=== PATIENT | female | born 1950 | race Caucasian/White ===

== ENCOUNTER → 2019-03-30 14:23 | Outpatient (BNVA) | payer OTHER, SELFPAY | PROVIDERS: PCP Nurse Practitioner Family; Referring Provider Nurse Practitioner Family; Visit Provider Surgery | DX: N60.89 Other benign mammary dysplasias of unspecified breast (principal) | CPT/HCPCS: 99202; 99213 ==

== ENCOUNTER 2019-04-12 09:10 | Outpatient (CLI) | payer OTHER, SELFPAY ==
[2019-04-12 09:51] LABS: Bilirubin Negative (Negative); Blood Small (Negative); Clarity Clear; Glucose Negative (Negative); Ketones Negative (Negative); Leukocyte Esterase Negative (Negative); Nitrite Negative (Negative); Urobilinogen 0.2 EU/dL (Up TO 0.2); pH 6.5 (5-8)
[2019-04-12 10:01] LABS: Epithelial Cells Few HPF (Negative); WBC 0-2 HPF (0-5)
[2019-04-12 10:02] LABS: Bacteria Rare HPF (Negative); C & S Indicated? No; Casts Negative LPF (Negative); Crystals Negative HPF (Negative); Mucus Trace (Negative)
[2019-04-12 10:36] LABS: ALT 22 U/L (12-78); AST 16 U/L (15-37); Albumin 3.6 g/dL (3.4-5.0); Alkaline Phosphatase 122 U/L (46-116); Anion Gap 8.3 mmol/L (3-11); BUN 22 mg/dL (7-18); Bilirubin, Total 0.2 mg/dL (0.2-1.0); CO2 30.7 mmol/L (21.0-32.0); CREATININE 0.71 mg/dL (0.55-1.02); Calcium 8.7 mg/dL (8.5-10.1); Chloride 103 mmol/L (98-107); Cholesterol 269 mg/dL (50-200); Glucose 88 mg/dL (70-100); HDL Cholesterol 111 mg/dL (40-60); LDL CHOLESTEROL 137 mg/dL (<100); Potassium 3.9 mmol/L (3.5-5.1); Sodium 142 mmol/L (136-145); Total Protein 7.3 g/dL (6.4-8.2); Triglyceride 85 mg/dL (30-150)
[2019-04-12 10:44] LABS: Hemoglobin A1C 5.7 % (4.5-6.2)
[2019-04-13 11:11] LABS: Hepatitis C Ab w Rflx HCV PCR Negative (NEGAT)
== END 2019-04-12 09:30 ==
PROVIDERS: PCP Nurse Practitioner Family; Visit Provider Nurse Practitioner Family
DX: R31.29 Other microscopic hematuria (principal); E78.5 Hyperlipidemia, unspecified; R73.01 Impaired fasting glucose; R74.8 Abnormal levels of other serum enzymes; Z11.59 Encounter for screening for other viral diseases
CPT/HCPCS: 36415; 80053; 80061; 83721; 86803; 81003; 81015; 83036

== ENCOUNTER 2019-05-16 21:57 | Outpatient (REF) | payer OTHER, SELFPAY | END 2019-05-16 22:17 | LOC: LBN 21:57 | PROVIDERS: PCP Nurse Practitioner Family; Visit Provider Nurse Practitioner | DX: R82.90 Unspecified abnormal findings in urine (principal) | CPT/HCPCS: 87077; 87086 ==

== ENCOUNTER 2019-08-16 11:25 | Outpatient (REF) | payer OTHER, SELFPAY | END 2019-08-16 11:45 | LOC: LBN 11:25 | PROVIDERS: PCP Nurse Practitioner Family; Visit Provider Nurse Practitioner Family | DX: R31.9 Hematuria, unspecified (principal) | CPT/HCPCS: 87086 ==

== ENCOUNTER 2019-11-07 15:59 | Outpatient (REF) | payer OTHER, SELFPAY ==
[2019-11-07 17:30] LABS: Bilirubin Negative (Negative); Blood Small (Negative); Clarity Clear (Clear); Glucose Negative (Negative); Ketones Negative (Negative); Leukocyte Esterase Negative (Negative); Nitrite Negative (Negative); Urobilinogen 0.2 EU/dL (Up TO 0.2)
[2019-11-07 18:14] LABS: Bacteria Negative HPF (Negative); C & S Indicated? No; Crystals Negative HPF (Negative); Epithelial Cells Negative HPF (Negative); Mucus Negative (Negative); RBC 0-2 HPF (0-2); WBC 0-2 HPF (0-5)
== END 2019-11-07 16:19 ==
LOC: LBN 15:59
PROVIDERS: PCP Nurse Practitioner Family; Visit Provider Family Medicine
DX: R35.0 Frequency of micturition (principal)
CPT/HCPCS: 81003; 81015

== ENCOUNTER 2020-02-21 12:12 | Emergency (ER) | payer OTHER, SELFPAY ==
--- NOTE | 2020-02-21 12:15 | DI.CT_ITS ---
EXAM: CT HEAD WO CLINICAL HISTORY: headaches and dizziness. TECHNIQUE: Imaging Protocol: Axial computed tomography images with coronal and sagittal reformatted images were created and reviewed COMPARISON: No exams were available for comparison FINDINGS: Ventricles and Extra axial spaces: Normal in size and morphology for the patient's age. Hemorrhage: None. Cerebral parenchyma: Scattered parenchymal calcifications are seen. No mass effect is present. Ther e are areas of decreased attenuation in the white matter most consistent with small vessel ischemic d isease. Midline shift: None. Brainstem/Cerebellum: Normal. Calvarium: Normal. Visualized Paranasal sinuses/Mastoids: Clear. Soft Tissues: Unremarkable. IMPRESSION: No acute intracranial process. The findings were discussed with the emergency department on the date of the examination. RADIATION DOSE DELIVERED: DATA REPOSITORY: All CT scans at this facility are submitted to the National Radiology Data Registry (NRDR) Dose Index Registry (DIR) with the [employer] (ACR). RADIATION OPTIMIZATION: All CT scans at this facility use at least one of these dose optimization te chniques: automated exposure control; mA and/or kV adjustment per patient size (includes targeted exa ms where dose is matched to clinical indication); or iterative reconstruction.
[2020-02-21 12:21] VITALS: BP 150/61; PULSE 77; RESP 16; TEMP 36.9; O2SAT 97
--- NOTE | 2020-02-21 12:25 | ED.GENADUL_ITS ---
Discharge Plan Disposition Patient Disposition: HOME Condition: Stable Discharge Details Chief Complaint: Dizzy/Sync Clinical Impression: Dizziness Primary Care Provider: Liz Hall ED Provider: Petr Washington Home Meds and New Rx's Prescriptions: New meclizine 25 mg tablet 25 mg PO TID PRN (Reason: dizziness) Qty: 30 RF: 0 Continued minoxidil 5 % solution 1 ml TP BID Qty: 120 RF: 3 atorvastatin 10 mg tablet 10 mg PO DAILY Qty: 90 RF: 3 pantoprazole 20 mg tablet,delayed release (DR/EC) 20 mg PO DAILY Qty: 90 RF: 0 (DME) blood-glucose meter Misc See Rx Instructions .ROUTE .MEDSUPPLY Qty: 1 RF: 0 (DME) blood sugar diagnostic [Blood Glucose Test] Strip See Rx Instructions .ROUTE .MEDSUPPLY Qty: 100 RF: 3 (DME) lancets Misc See Rx Instructions .ROUTE .MEDSUPPLY Qty: 100 RF: 3 smooth move tea 1 PO TID RF: 0 docusate sodium [Stool Softener] 100 MG capsule 100 mg PO PRN RF: 0 mineral oil [Mineral Oil Light] 25 ML oil 25 ml PO DAILY RF: 0 nortriptyline 50 mg capsule 50 mg PO QHS RF: 0 clonazepam 0.5 mg tablet 0.5 mg PO BID RF: 0 lamotrigine 100 mg tablet 100 mg PO BID RF: 0 aspirin [Adult Aspirin Regimen] 81 mg tablet,delayed release (DR/EC) 81 mg PO DAILY RF: 0 divalproex 250 mg tablet,delayed release (DR/EC) 250 mg PO DAILY RF: 0 naproxen sodium [Aleve] 220 MG capsule 220 mg PO BID PRNRF: 0 Discharge Instructions Instructions: Dizziness (ED) Additional Instructions: your cat scan and blood work did not show any concerning abnormality follow up with your primary care provider within 1 week if you feel more ill, have chest pain, difficulty breathing or weakness on one side of the body return to the emergency department Medical Decision Making 69 yo female with hx of depression, anxiety, epilepsy, hld, who comes in with complaints of dizziness for 3 days worse with head movements and mild headaches. Denies any falls, fevers, chest pain, neck pain, vomit, abdominal pain. States it feels to her as though the room is spinning when she turns her head left or right. She has no focal motor or sensation deficits. She has no facial droop, eomi and has horizontal nystagmus when looking to the left and reassuring HINTS exam so suspect peripheral vertigo. Will tx with meclizine and given her age evaluate for anemia, electrolyte abnormalities and image her head to evaluate for sdh. She has no neck pain and no bruits of the carotids so doubt dissection. No findings to suggest central vertigo. labs unremarkable and imaging unremarkable. She feels better and still has a reassuring exam. Will d/c and have her f/u with her pcp, suspect peripheral vertigo Differential Diagnosis Differential Diagnosis: vertigo, anemia, electrolyte abnormality, sdh Medical Records Medical records reviewed: Yes I reviewed the patient's medical records. Imaging Data Radiologic Study: Attestation: I personally reviewed and interpreted this imaging study as follows: Imaging: CT Scan Radiologist's impression: no acute findings per Dr. oro Lab Data Lab results reviewed: Yes I reviewed the patient's lab results. ECG Data Attestation: I personally reviewed and interpreted this ECG (s) as follows: Prior ECG tracings: not available for review Interpretation: sinus rhythm, rate of 72, pr 174, qtc 433 HPI General Mode of arrival: wheelchair . Date/Time Provider Initiated Documentation: 02/21/20 12:12 . Limitations to Documentation: no limitations . Information obtained by: patient . History of Present Illness 69 year old F presents to the emergency department with the chief complaint of dizziness, described as moderate, Patient started experiencing this day(s) (3) and it has been constant. No relieving factors improve symptom(s), Movement worsens symptoms . Patient did receive the following treatments prior to arrival, none Related Data Home Medications Medication Instructions Recorded Confirmed naproxen sodium [Aleve] 220 mg PO BID PRN 07/28/13 01/30/20 Smooth Move Tea 1 PO TID 07/29/17 01/30/20 docusate sodium [Stool Softener] 100 mg PO PRN cap 01/25/18 01/30/20 mineral oil [Mineral Oil Light] 25 ml PO DAILY 01/25/18 01/30/20 blood sugar diagnostic #100 each 06/20/19 01/30/20 blood-glucose meter #1 each 06/20/19 01/30/20 lancets #100 each 06/20/19 01/30/20 aspirin 81 mg tablet,delayed 81 mg PO DAILY 08/08/19 01/30/20 release clonazepam 0.5 mg tablet 0.5 mg PO BID 08/08/19 01/30/20 lamotrigine 100 mg tablet 100 mg PO BID 08/08/19 01/30/20 nortriptyline 50 mg capsule 50 mg PO QHS 08/08/19 01/30/20 divalproex 250 mg tablet,delayed 250 mg PO DAILY tab 10/23/19 01/30/20 release minoxidil 5 % topical solution 1 ml TP BID #120 ml 01/30/20 01/30/20 atorvastatin 10 mg tablet 10 mg PO DAILY #90 tab-cap 02/04/20 02/04/20 pantoprazole 20 mg tablet,delayed 20 mg PO DAILY #90 tab-cap 02/04/20 02/04/20 release meclizine 25 mg PO TID PRN #30 tab 02/21/20 Previous Rx's Medication Instructions Recorded blood sugar diagnostic #100 each 06/20/19 blood-glucose meter #1 each 06/20/19 lancets #100 each 06/20/19 minoxidil 5 % topical solution 1 ml TP BID #120 ml 01/30/20 atorvastatin 10 mg tablet 10 mg PO DAILY #90 tab-cap 02/04/20 pantoprazole 20 mg tablet,delayed 20 mg PO DAILY #90 tab-cap 02/04/20 release meclizine 25 mg PO TID PRN #30 tab 02/21/20 Allergies Allergy/AdvReac Type Severity Reaction Status Date / Time egg AdvReac Mild SKIN RASH Unverified 02/21/20 12:30 tomato AdvReac Mild SKIN RASH Unverified 02/21/20 12:30 POTATO AdvReac Mild SKIN RASH Uncoded 02/21/20 12:30 Review of Systems All systems reviewed & are unremarkable except as noted in HPI and below Constitutional Constitutional: Denies chills, Denies fever(s) and Denies weakness Cardiovascular Cardiovascular: Denies chest pain and Denies dyspnea Respiratory Respiratory: Denies cough and Denies dyspnea Gastrointestinal Gastrointestinal: Denies abdominal pain and Denies vomiting Genitourinary Genitourinary: Denies dysuria Integumentary/Breasts Skin/Breast: Denies rash Neurologic Neurologic: Denies weakness [facility] Social History Smoking/Tobacco Use Status: Never Alcohol Intake: never Drug use: Never Substance use type: does not use Caregiver/Support person: No Household members: spouse Communication Needs: Language Barriers What type of physical activity do you participate in: none Do you feel safe at home: Yes Do you feel safe in your relationship?: Yes Exam Const General: no acute distress Orientation: alert HENMT Head: normal to inspection Ears: external ears normal General nose exam: external nose normal Mouth: moist mucous membranes Eyes General: appearance normal, both eyes and all related structures Neck Neck: normal visual inspection Resp Effort & Inspection: normal respiratory effort and able to speak in complete sentences Cardio Rate: regular rate Skin General skin exam: no rashes or lesions noted Neuro General: patient alert and patient oriented x3 Extrem General: normal to inspection Psych Mental Status: mental status grossly normal
[2020-02-21] MEDS: Normal Saline 1,000 ML 1000 ML IV (12:39)
[2020-02-21 12:40] VITALS: RESP 16
[2020-02-21] MEDS: Meclizine 25 MG TAB PO (12:47)
[2020-02-21 13:03] LABS: Abs Immature Grans 0.02 k/cumm (0.0-0.09); Absolute Basophil Count 0.03 k/cumm (0.0-0.2); Absolute Eosinophil Count 0.01 k/cumm (0.0-0.7); Absolute Lymphocyte Count 1.17 k/cumm (1.2-3.4); Absolute Monocyte Count 0.43 k/cumm (0.11-0.7); Absolute Neutrophil Count 4.78 k/cumm (1.2-6.7); Basophils % 0.5; Eosinophils % 0.2; HCT 37.9 % (36.0-46.0); Immature Grans % 0.3 %; Lymphocytes % 18.2; Mean Corp. HGB Concentration 31.7 g/dL (32.0-36.0); Mean Corpuscular Hemoglobin 28.5 pg (27.0-33.0); Mean Platelet Volume 9.3 fL (8.0-11.0); Monocytes % 6.7; Neutrophils % 74.1; Platelet Count 298 x1000/uL (130-400); RBC 4.21 m/cumm (4.00-5.20); RBC Distribution Width 12.8 % (11.7-14.6); White Blood Cell Count 6.44 k/cumm (4.4-10.8)
[2020-02-21 13:08] LABS: PTT Activated 23.9 sec (21.0-31.4); Prothrombin Time 9.9 sec (9.3-11.0)
[2020-02-21 13:11] LABS: ALT 26 U/L (14-59); AST 17 U/L (15-37); Albumin 3.7 g/dL (3.4-5.0); Alkaline Phosphatase 101 U/L (46-116); Anion Gap 5.1 mmol/L (3-11); BUN 23 mg/dL (7-18); Bilirubin, Total 0.4 mg/dL (0.2-1.0); CO2 33.9 mmol/L (21.0-32.0); CREATININE 0.99 mg/dL (0.55-1.02); Calcium 8.9 mg/dL (8.5-10.1); Chloride 103 mmol/L (98-107); Estimated GFR 55.29 (mL/min/1.73m2); Glucose 122 mg/dL (74-106); Magnesium 2.1 mg/dL (1.8-2.4); Potassium 3.7 mmol/L (3.5-5.1); Sodium 142 mmol/L (136-145); Total Protein 7.6 g/dL (6.4-8.2)
[2020-02-21 13:16] LABS: Troponin I < 0.05 ng/Ml (<0.06)
[2020-02-21 13:27] LABS: VALPROIC ACID 44.4 ug/mL (50-100)
[2020-02-21 17:29] VITALS: BP 148/71; PULSE 68; RESP 16; TEMP 36.8; O2SAT 96
== END 2020-02-21 17:20 | disposition home or self-care (01) ==
PROVIDERS: Emergency Provider Emergency Medicine; PCP Nurse Practitioner Family
DX: R42 Dizziness and giddiness (principal)
CPT/HCPCS: 36415; 80053; 93005; 96360; 99285; 70450; 80164; 83735; 84484; 85025; 85610; 85730; 93010; 99284

== ENCOUNTER 2020-07-29 16:21 | Emergency (ER) | payer OTHER, SELFPAY ==
[2020-07-29 16:33] VITALS: BP 141/98; TEMP 36.4; O2SAT 99
[2020-07-29 16:39] VITALS: BP 141/98; PULSE 105
[2020-07-29 16:40] VITALS: BP 142/63; PULSE 99
--- NOTE | 2020-07-29 16:46 | W.ED.GENAD ---
Discharge Plan Disposition Patient Disposition: HOME Condition: Improving Discharge Details Chief Complaint: Nausea/Vomit/Diar Clinical Impression: Constipation Primary Care Provider: Liz Hall ED Provider: Doris Sen Home Meds and New Rx's Prescriptions: Continued minoxidil 5 % solution 1 ml TP BID Qty: 120 RF: 3 pantoprazole 20 mg tablet,delayed release (DR/EC) 20 mg PO DAILY Qty: 90 RF: 0 (DME) blood-glucose meter Misc See Rx Instructions .ROUTE .MEDSUPPLY Qty: 1 RF: 0 (DME) Blood Glucose Test Strip See Rx Instructions .ROUTE .MEDSUPPLY Qty: 100 RF: 3 (DME) lancets Misc See Rx Instructions .ROUTE .MEDSUPPLY Qty: 100 RF: 3 smooth move tea 1 PO TID RF: 0 docusate sodium [Stool Softener] 100 MG capsule 100 mg PO PRN RF: 0 mineral oil [Mineral Oil Light] 25 ML oil 25 ml PO DAILY RF: 0 nortriptyline 50 mg capsule 50 mg PO QHS RF: 0 lamotrigine 100 mg tablet 100 mg PO BID RF: 0 aspirin [Adult Aspirin Regimen] 81 mg tablet,delayed release (DR/EC) 81 mg PO DAILY RF: 0 divalproex 250 mg tablet,delayed release (DR/EC) 250 mg PO DAILY RF: 0 clonazepam 0.5 mg tablet 0.5 mg PO BID RF: 0 atorvastatin 10 mg tablet 10 mg PO DAILY Qty: 90 RF: 3 naproxen sodium [Aleve] 220 MG capsule 220 mg PO BID PRNRF: 0 meclizine 25 mg tablet 25 mg PO TID PRN (Reason: dizziness) Qty: 30 RF: 0 Discharge Instructions Instructions: Constipation (ED) Additional Instructions: Encourage water intake. Please continue the home regimen to help with Prevent constipation. You may also use MiraLAX or Colace to help with your constipation. On your CT, you had thickening of your rectal wall and will need colonoscopy. Please call your primary care tomorrow to set this up. If you develop abdominal pain, fever/chills or other new/worsening symptoms and seek care urgently once again. Referrals: iLz Hall, NAZARIO [Primary Care Provider] - Discharge Data Discharge Date/Time-TO BE ENTERED AT DEPARTURE: 07/29/20 22:30 Medical Decision Making Patient is a pleasant 77-year-old female presenting today with chief complaint of inability to bowel movement as well as rectal pain. Patient does speak Bangladeshi primarily, language line was utilized. Patient reports he has a history of colon cancer and had a partial colectomy approximately 3 years ago. Reports that her last colonoscopy was approximately 18 years ago. She reports that typically she has a bowel movement every 2 to 3 days and has not had one in approximately 3. Her concern today however is that she is been having rectal discomfort. She reports that this pain is been keeping her awake last night and has been limiting her ability to perform her ADLs today. She states that she has been having water per rectum but no stool. Reports using daily stool softeners. Denies any nausea vomiting. No fevers or chills. No other previous abdominal surgeries. Denies any change in appetite. No recent antibiotics. Denies any blood in stool. On exam, patient appears well-hydrated. Resting comfortably. Does appear anxious. His concern for the left side with firm area concerning for mass. However, patient there is a firm area chronically in this region associated with previous colectomy. Normal rectal exam, no stool in the rectal vault. No melena or hematochezia. Concern for potential recurrence of her cancer given her difficulty chronically with bowel habits and an acute change at this time. Particularly since there is a mass on the left side. This is patient's primary concern as well. Plan for CT, labs, hydration. I discussed this plan with the patient while utilizing the language line. She voiced understanding and wishes to proceed. Labs reviewed, no leukocytosis, stable H&H. Creatinine 1.1, patient is receiving IV hydration. No other signficiant abnormalities. CT reviewed by radiologist: INDINGS: Lungs: Dependent subsegmental atelectasis. Pleural space: No pneumothorax Mediastinal space: Hiatal hernia. Liver: Normal. No mass. Gallbladder and bile ducts: Normal. No calcified stones. No ductal dilation. Pancreas: Normal. No ductal dilation. Spleen: Normal. No splenomegaly. Adrenals: Normal. No mass. Kidneys and ureters: Too small to characterize hypoenhancing area or lesion in left kidney. Exophytic, circumscribed lesion from upper pole right kidney, attenuation higher than simple fluid, measuring 1.8 cm, compared to 1.4 cm on prior study. No hydronephrosis. Stomach and bowel: No dilated loops of small bowel. Right colon distended with stool and administered oral contrast. There is a large amount of stool in the colon sigmoid and rectal portions of the colon distended with stool. Prior distal colonic surgery. At least minimal wall thickening noted in rectum. Appendix: No evidence of appendicitis. Intraperitoneal space: No free intraperitoneal gas. Vasculature: Unremarkable. No abdominal aortic aneurysm. Lymph nodes: See Reproductive finding. Bladder: Unremarkable as visualized. Reproductive: Right adnexal cyst unchanged in size. Anteverted uterus. No adenopathy. Bones/joints: The spine demonstrates mild degenerative changes at multiple levels. Soft tissues: There is an uncomplicated fat-containing umbilical hernia. IMPRESSION: 1. Wall thickening in rectum. Further initial evaluation with proctosigmoidoscopy recommended. 2. There is a large amount of stool in the colon and portions of colon are distended with stool. Correlate clinically for the presence of constipation. 3. Complex cyst or cystic mass right kidney. Correlate with renal ultrasound. Patient was given enema and had multiple bowel movements. Reports feeling much improved. I did discuss with her that she will need a colonoscopy, particularly given her medical history. She reported that she had not had a colonoscopy in almost 18 years. We did discuss continued home regimen to help with constipation. Return precautions were given. Encourage close follow-up with primary care. All of her questions and concerns were addressed and she is agreement this plan. [facility] General Mode of arrival: ambulatory. Date/Time Provider Initiated Documentation: 07/29/20 16:45. Limitations to Documentation: language barrier (Utilize language line, patient primarily speaks Bangladeshi). Information obtained by: patient and RN notes reviewed. History of Present Illness 69 year old F presents to the emergency department with the chief complaint of Feels constipated, small amounts of liquid stool frequently, described as moderate and similar to prior episodes, with intensity rated at 7. Quality is described as aching, and is localized to the abdomen (Primarily in the rectum). Patient reports no radiation. Patient started experiencing this day(s) (2) and it has been constant. No relieving factors improve symptom(s), No exacerbating factors reported . Patient notes no other symptoms.. Patient did receive the following treatments prior to arrival, none Related Data Home Medications Medication Instructions Recorded Confirmed naproxen sodium [Aleve] 220 mg PO BID PRN 07/28/13 07/29/20 Smooth Move Tea 1 PO TID 07/29/17 02/21/20 docusate sodium [Stool Softener] 100 mg PO PRN cap 01/25/18 07/29/20 mineral oil [Mineral Oil Light] 25 ml PO DAILY 01/25/18 07/29/20 blood sugar diagnostic #100 each 06/20/19 07/29/20 blood-glucose meter #1 each 06/20/19 07/29/20 lancets #100 each 06/20/19 07/29/20 aspirin 81 mg tablet,delayed 81 mg PO DAILY 08/08/19 07/29/20 release lamotrigine 100 mg tablet 100 mg PO BID 08/08/19 07/29/20 nortriptyline 50 mg capsule 50 mg PO QHS 08/08/19 07/29/20 divalproex 250 mg tablet,delayed 250 mg PO DAILY tab 10/23/19 07/29/20 release minoxidil 5 % topical solution 1 ml TP BID #120 ml 01/30/20 07/29/20 pantoprazole 20 mg tablet,delayed 20 mg PO DAILY #90 tab-cap 02/04/20 07/29/20 release meclizine 25 mg PO TID PRN #30 tab 02/21/20 07/29/20 clonazepam 0.5 mg tablet 0.5 mg PO BID 03/26/20 07/29/20 atorvastatin 10 mg tablet 10 mg PO DAILY #90 tab-cap 07/23/20 07/29/20 Previous Rx's Medication Instructions Recorded blood sugar diagnostic #100 each 06/20/19 blood-glucose meter #1 each 06/20/19 lancets #100 each 06/20/19 minoxidil 5 % topical solution 1 ml TP BID #120 ml 01/30/20 pantoprazole 20 mg tablet,delayed 20 mg PO DAILY #90 tab-cap 02/04/20 release meclizine 25 mg PO TID PRN #30 tab 02/21/20 atorvastatin 10 mg tablet 10 mg PO DAILY #90 tab-cap 07/23/20 Allergies Allergy/AdvReac Type Severity Reaction Status Date / Time egg AdvReac Mild SKIN RASH Verified 02/21/20 14:46 tomato AdvReac Mild SKIN RASH Verified 02/21/20 14:46 POTATO AdvReac Mild SKIN RASH Uncoded 02/21/20 12:30 General Stated Complaint: Nausea/Vomit/Diar NELI: 3 Review of Systems Constitutional Constitutional: Reports as per HPI, Denies chills, Denies fatigue, Denies fever(s) and Denies headache(s) ENT Ears, Nose, Mouth, and Throat: Denies headache(s) Cardiovascular Cardiovascular: Reports as per HPI, Denies chest pain and Denies dyspnea Respiratory Respiratory: Reports as per HPI, Denies cough and Denies dyspnea Gastrointestinal Gastrointestinal: Reports as per HPI Musculoskeletal Musculoskeletal: Reports as per HPI and Denies back pain Integumentary/Breasts Skin/Breast: Reports as per HPI and Denies rash Neurologic Neurologic: Reports as per HPI and Denies headache(s) Endocrine Endocrine: Denies fatigue [facility] Medical History (Updated 07/29/20 @ 22:12 by DEANNE Guadalupe) Anxiety (Chronic 05/30/14) Anxiety and depression (Chronic) Chest pain, unspecified (Resolved 05/09/13) nl MPI 05/07/13 EF 71% Chronic constipation Chronic constipation (Chronic 05/27/17) [facility] [place] Cyst of breast, right, solitary (Chronic 03/2018) GERD (gastroesophageal reflux disease) Headache HLD (hyperlipidemia) Hyperlipidemia (Chronic 03/23/12) 03/2019 labs: 10-year ASCVD risk = ~14.5% --> started on moderate intensity statin therapy IFG (impaired fasting glucose) (Chronic) Irritable bowel syndrome (Chronic 03/23/12) Dr. Iglesias [place] [facility] [place] (Chronic) neurology clinic note dated 09/28/17 Microscopic hematuria (Chronic 03/25/17) 02/2017 urology consultation: negative cystoscopy with retrograde pyelogram; Recommend annual UAs with repeat workup in 3-5 years if persistent Partial symptomatic epilepsy with complex partial seizures, intractable, without status epilepticus (Chronic) [facility] Implanted stimulator Telogen effluvium (Chronic) [facility] [place] Tubular adenoma of colon (Inactive 07/12/17) descending colon Surgical History Colectomy (Resolved ~1994) For colon CA Social History Smoking/Tobacco Use Status: Never Alcohol Intake: never Drug use: Never Substance use type: does not use Caregiver/Support person: No Household members: spouse Communication Needs: Language Barriers What type of physical activity do you participate in: none Do you feel safe at home: Yes Do you feel safe in your relationship?: Yes Exam Const General: cooperative, healthy appearing, no acute distress, well developed and anxious Nutritional Appearance: average body habitus and well nourished Orientation: alert and awake [facility] Head: normal to inspection Mouth: moist mucous membranes Resp Effort & Inspection: normal respiratory effort, able to speak in complete sentences and no respiratory distress Auscultation: clear to auscultation bilaterally, no rales, no rhonchi and no wheezes Cardio Rate: regular rate Rhythm: regular rhythm Heart Sounds: S1 normal and S2 normal GI Inspection: no edema, non-distended, scar (Well-healed surgical incision), no visible herniation, no visible pulsation and No visible peristalsis Palpation: soft, no hepatosplenomegaly, not firm, no guarding, no hernias, mass (Left lower quadrant), no pulsatile masses, not rigid and tender (Diffusely tender, no peritoneal findings) Percussion: normal to percussion Auscultation: normal bowel sounds Rectal Exam - female: visual inspection normal, normal sphincter tone, No abnormal stool (no stool in rectal fault), No fecal impaction, No heme positive stool, No hemorrhoids and No laceration Back/Spine/Pelvis Back: no CVA tenderness Skin General skin exam: no rashes or lesions noted Trauma: no lacerations or abrasions Neuro General: patient alert and patient awake Cognition: normal cognition Speech: speech normal Gait: normal gait Psych Appearance: grossly normal and well kempt Mental Status: mental status grossly normal Speech and Movement: speech and movement normal Course Vital Signs Vital signs: Vital Signs Temperature 36.4 C L 07/29/20 16:33 Blood Pressure 141/98 H 07/29/20 16:33 Pulse Oximetry 99 07/29/20 16:33 Temperature 36.4 C L 07/29/20 16:33 Temperature Source Tympanic 07/29/20 16:33 Blood Pressure 141/98 H 07/29/20 16:33 Blood Pressure Position Sitting 07/29/20 16:33 Pulse Oximetry 99 07/29/20 16:33 Oxygen Delivery Method Room Air 07/29/20 16:33 Oxygen Flow Rate 0 07/29/20 16:33
--- NOTE | 2020-07-29 17:30 | DI.CT_ITS ---
EXAM: CT ABDOMEN PELVIS W CLINICAL HISTORY: hx colon ca, change in bowel habits, palp LLQ mass TECHNIQUE: Imaging Protocol: Axial computed tomography images with coronal and sagittal reformatted images were created and reviewed CONTRAST MATERIAL: Intravenous: Omnipaque 350 Contrast volume:100 mL Oral: Yes COMPARISON: CT ABD PELVIS WITH CONTRAST from 08/24/2012 CT ABD PELVIS WITH CONTRAST from 12/12/2016 CT ABD PELVIS WITH CONTRAST from 08/03/2017 FINDINGS: ABDOMEN: Lung Bases: There are stable pulmonary nodules seen in the right middle and both lower lobes. Liver: Normal density. No measurable mass. Portal, Superior Mesenteric, and Splenic Veins: Unremarkable. Gallbladder and Biliary Tract: No radiodense calculus or dilation. Pancreas: Normal density, no abnormal calcifications or inflammatory process. Spleen: Normal. Adrenals: No masses seen. Kidneys: Normal size, contour and axis. No radiodense stones or obstructive uropathy. There is a cyst seen in the superior pole of the right kidney which has been present compared to prior examinations dating back to 2011. It measures 1.5 cm on the current examination compared with 1.4 cm from 7. Abdominal Aorta: Abdominal portion non-dilated. Atherosclerosis. Bowel: The colon is distended to the level of the rectosigmoid junction. There is a large amount of stool seen throughout the colon. There is mild bowel wall thickening noted at the transition point a t the rectosigmoid junction. No evidence of acute appendicitis. There is a small hiatal hernia. Peritoneal Cavity: No ascites, collection or mesenteric inflammatory response. Lymph Nodes: Within normal limits. Bones: Degenerative changes. Soft Tissues: There is again seen a fat containing left a anterior abdominal wall hernia. PELVIS: Bladder: Symmetric distention, no gross wall thickening. Reproductive Organs: Stable right adnexal cyst. Reproductive organs otherwise unremarkable. Lymph Nodes: Within normal limits. Bones: Degenerative changes. IMPRESSION: 1. Wall thickening seen in the rectosigmoid junction. Further evaluation with endoscopy/colonoscopy is recommended. 2. Dilatation of the proximal colon. Large amount of stool throughout the colon suggesting constipat ion. 3. Stable right renal cyst. RADIATION DOSE DELIVERED: 1,304.79mGy.cm Total DLP DATA REPOSITORY: All CT scans at this facility are submitted to the National Radiology Data Registry (NRDR) Dose Index Registry (DIR) with the [employer] (ACR). RADIATION OPTIMIZATION: All CT scans at this facility use at least one of these dose optimization te chniques: automated exposure control; mA and/or kV adjustment per patient size (includes targeted exa ms where dose is matched to clinical indication); or iterative reconstruction.
[2020-07-29] MEDS: Lactated Ringers 1,000 ML 1000 ML IV (17:46)
[2020-07-29 17:56] LABS: Abs Immature Grans 0.01 10^3/uL (0.0-0.06); Absolute Basophil Count 0.03 10^3/uL (0.0-0.2); Absolute Eosinophil Count 0.06 10^3/uL (0.0-0.7); Absolute Monocyte Count 0.57 10^3/uL (0.1-0.8); Absolute Neutrophil Count 5.33 10^3/uL (1.2-6.7); Basophils % 0.4; Eosinophils % 0.8; HCT 36.4 % (36.0-46.0); HGB 11.5 g/dL (11.2-15.7); Immature Grans % 0.1; Lymphocytes % 22.1; MCH 28.3 pg (27.0-33.0); MCHC 31.6 % (32.0-36.0); MCV 89.7 fL (80-95); MPV 8.8 fL (8.0-11.0); Monocytes % 7.4; Neutrophils % 69.2; Nucleated RBC 0 %; Platelet Count 249 10^3/uL (130-400); RBC 4.06 10^6/uL (3.93-5.22); RDW 13.5 % (11.7-14.6); RDW-SD 44.9 fL
[2020-07-29 18:11] LABS: ALT 27 U/L (14-59); AST 17 U/L (15-37); Albumin 3.6 g/dL (3.4-5.0); Alkaline Phosphatase 115 U/L (46-116); Anion Gap 7.5 mmol/L (3-11); BUN 20 mg/dL (7-18); Bilirubin, Total 0.5 mg/dL (0.2-1.0); CO2 30.5 mmol/L (21.0-32.0); CREATININE 1.11 mg/dL (0.55-1.02); Calcium 8.7 mg/dL (8.5-10.1); Chloride 103 mmol/L (98-107); Estimated GFR 48.46 (mL/min/1.73m2); Glucose 96 mg/dL (74-106); Potassium 3.7 mmol/L (3.5-5.1); Sodium 141 mmol/L (136-145); Total Protein 7.4 g/dL (6.4-8.2)
[2020-07-29] MEDS: Omnipaque 350 MG/ML 100 ML BTL IV (19:57)
[2020-07-29] MEDS: Normal Saline - Diluent 50 ML VIAL IV (20:03)
[2020-07-29] MEDS: Normal Saline Flush 10 ML SYR IVP (20:04)
--- NOTE | 2020-07-29 20:49 | DI.VRAD_ITS ---
PROCEDURE INFORMATION: Exam: CT Abdomen And Pelvis With Contrast Exam date and time: 07/29/2020 5:34 PM Age: 69 years old Clinical indication: Other: HX colon CA, change in bowel habits, palp llq mass; Prior surgery; Surgery date: 6+ months TECHNIQUE: Imaging protocol: Computed tomography of the abdomen and pelvis with intravenous contrast. Radiation optimization: All CT scans at this facility use at least one of these dose optimization techniques: automated exposure control; mA and/or kV adjustment per patient size (includes targeted exams where dose is matched to clinical indication); or iterative reconstruction. Contrast material: OMNIPAQUE 350; Contrast volume: 100 ml; Contrast route: INTRAVENOUS (IV); Other contrast: Oral, OMNIPAQUE 350, 900 ML; COMPARISON: CT ABD PELVIS WITH CONTRAST 08/03/2017 8:51 PM FINDINGS: Lungs: Dependent subsegmental atelectasis. Pleural space: No pneumothorax Mediastinal space: Hiatal hernia. Liver: Normal. No mass. Gallbladder and bile ducts: Normal. No calcified stones. No ductal dilation. Pancreas: Normal. No ductal dilation. Spleen: Normal. No splenomegaly. Adrenals: Normal. No mass. Kidneys and ureters: Too small to characterize hypoenhancing area or lesion in left kidney. Exophytic, circumscribed lesion from upper pole right kidney, attenuation higher than simple fluid, measuring 1.8 cm, compared to 1.4 cm on prior study. No hydronephrosis. Stomach and bowel: No dilated loops of small bowel. Right colon distended with stool and administered oral contrast. There is a large amount of stool in the colon sigmoid and rectal portions of the colon distended with stool. Prior distal colonic surgery. At least minimal wall thickening noted in rectum. Appendix: No evidence of appendicitis. Intraperitoneal space: No free intraperitoneal gas. Vasculature: Unremarkable. No abdominal aortic aneurysm. Lymph nodes: See Reproductive finding. Bladder: Unremarkable as visualized. Reproductive: Right adnexal cyst unchanged in size. Anteverted uterus. No adenopathy. Bones/joints: The spine demonstrates mild degenerative changes at multiple levels. Soft tissues: There is an uncomplicated fat-containing umbilical hernia. IMPRESSION: 1. Wall thickening in rectum. Further initial evaluation with proctosigmoidoscopy recommended. 2. There is a large amount of stool in the colon and portions of colon are distended with stool. Correlate clinically for the presence of constipation. 3. Complex cyst or cystic mass right kidney. Correlate with renal ultrasound. Dictated and Authenticated by: Yariel Najera MD. Ordering:KARLEE George MD
[2020-07-29 20:52] VITALS: BP 119/69; PULSE 84; RESP 20; TEMP 36.6; O2SAT 97
[2020-07-29 22:24] VITALS: BP 101/87; PULSE 84; RESP 181; TEMP 36.6; O2SAT 97
== END 2020-07-29 22:30 | disposition home or self-care (01) ==
PROVIDERS: Emergency Provider Physician Assistant; PCP Nurse Practitioner Family
DX: R19.4 Change in bowel habit (principal); K59.09 Other constipation; R93.3 Abnormal findings on diagnostic imaging of other parts of digestive tract; Z90.49 Acquired absence of other specified parts of digestive tract; Z85.038 Personal history of other malignant neoplasm of large intestine
CPT/HCPCS: 36415; 80053; 96360; 99285; 74177; 85025; 99284; J3490

== ENCOUNTER 2020-08-20 01:13 | Outpatient (CLI) | payer OTHER, SELFPAY ==
--- NOTE | 2020-08-20 07:15 | DI.US_ITS ---
EXAM: US RENAL CLINICAL HISTORY: Complex cyst vs. mass?,N28.1. TECHNIQUE: Branham scale, color and spectral Doppler were used. COMPARISON: CT CT ABDOMEN PELVIS W from 07/29/2020 FINDINGS: Renal size in cm: Right: 9.2. Left: 10.8. Echogenicity: Normal. Hydronephrosis: No. Cyst or mass: 1.4 x 1.1 x 1.3 cm simple cyst in the superior pole of the right kidney. Nephrolithiasis: No. Other findings: None. Bladder:Normal. Ureteral jets: Right: Not visualized during this examination. Left: Not visualized during this examination. Prevoid vol:86 cc Postvoid vol:9 cc Renal color flow: Symmetric and within normal limits. IMPRESSION: 1.4 x 1.1 x 1.3 cm simple cyst in the superior pole of the right kidney. DATA REPOSITORY:
== END 2020-08-20 01:33 ==
PROVIDERS: PCP Nurse Practitioner Family; Visit Provider Nurse Practitioner Family
DX: N28.1 Cyst of kidney, acquired (principal)
CPT/HCPCS: 76770

== ENCOUNTER 2020-09-11 17:58 | Emergency (ER) | payer OTHER, SELFPAY ==
[2020-09-11 18:17] VITALS: BP 99/75; PULSE 88; TEMP 36.7; O2SAT 98
--- NOTE | 2020-09-11 18:54 | ED.GENADUL_ITS ---
Discharge Plan Disposition Patient Disposition: HOME Condition: Stable Discharge Details Clinical Impression: Right knee sprain, Osteoarthritis Primary Care Provider: Liz Hall ED Provider: Philly Abdullahi Home Meds and New Rx's Prescriptions: Continued minoxidil 5 % solution 1 ml TP BID Qty: 120 RF: 3 pantoprazole 20 mg tablet,delayed release (DR/EC) 20 mg PO DAILY Qty: 90 RF: 0 (DME) blood-glucose meter Misc See Rx Instructions .ROUTE .MEDSUPPLY Qty: 1 RF: 0 (DME) Blood Glucose Test Strip See Rx Instructions .ROUTE .MEDSUPPLY Qty: 100 RF: 3 (DME) lancets Misc See Rx Instructions .ROUTE .MEDSUPPLY Qty: 100 RF: 3 smooth move tea 1 PO TID RF: 0 docusate sodium [Stool Softener] 100 MG capsule 100 mg PO PRN RF: 0 mineral oil [Mineral Oil Light] 25 ML oil 25 ml PO DAILY RF: 0 nortriptyline 50 mg capsule 50 mg PO QHS RF: 0 aspirin [Adult Aspirin Regimen] 81 mg tablet,delayed release (DR/EC) 81 mg PO DAILY RF: 0 divalproex 250 mg tablet,delayed release (DR/EC) 250 mg PO DAILY RF: 0 clonazepam 0.5 mg tablet 0.5 mg PO BID RF: 0 atorvastatin 10 mg tablet 10 mg PO DAILY Qty: 90 RF: 3 naproxen sodium [Aleve] 220 MG capsule 220 mg PO BID PRNRF: 0 lamotrigine [Lamictal] 100 mg Tablet 100 mg PO BID RF: 0 meclizine 25 mg tablet 25 mg PO TID PRN (Reason: dizziness) Qty: 30 RF: 0 Discharge Instructions Instructions: Knee Sprain (ED) Additional Instructions: Rest, ice, and elevate the affected area as much as possible. Alternate tylenol and motrin as needed and directed for pain. Take oxycodone for pain not relieved with Tylenol or Motrin. Follow-up with your primary care doctor in 1 week and with orthopedics if your symptoms do not improve or worsen for further evaluation. Return to the emergency department with any worsening or new concerning symptoms. Referrals: Nathan Adamson MD [ [facility] STAFF PHYSICIAN] - Discharge Data Discharge Date/Time-TO BE ENTERED AT DEPARTURE: 09/11/20 20:45 Discharge Physician: Philly Abdullahi Medical Decision Making 70-year-old female with a history of chronic balance problems who presents with right knee pain for the past few weeks after a twisting injury at home. Vitals within normal limits. She has pain with range of motion of right knee, most specifically flexion. No evidence of deformity, cellulitis or trauma. No ligamentous laxity. Neurovascular intact. Referred for x-ray which notes significant arthritis. Suspect right knee sprain in the setting of acute on chronic arthritis. Patient given a dose of oxycodone with some relief. Patient given oxycodone bottle to go. Instructed on the importance of RICE and alternating ice and heat. Rakesh wrap placed to right knee. Given orthopedic follow-up. Usual and customary return precautions given prior to discharge. Imaging Data Radiologic Study: Radiologist's impression: XR Right Knee Exam date and time: 09/11/2020 7:23 PM Age: 70 years old Clinical indication: Injury or trauma; Other: Twisting injury; Swelling (edema); Knee; Right TECHNIQUE: Imaging protocol: XR Right knee. Views: 3 views. COMPARISON: CR RIGHT KNEE LIMITED 1 OR 2 VIEW 07/18/2014 10:35 AM FINDINGS: Bones/joints: There are degenerative changes with joint space narrowing of the lateral compartment, worse compared to prior study. There is early subchondral cyst formation in the proximal tibia. Marginal osteophyte formation noted involving the medial and lateral compartment. There is severe degenerative changes in the patellofemoral articulation, worse compared to prior exam. There appears to be a small joint effusion. Soft tissues: Normal. IMPRESSION: Interval progression of osteoarthritis with associated small joint effusion. HPI General Mode of arrival: ambulatory . Date/Time Provider Initiated Documentation: 09/11/20 18:10 . Limitations to Documentation: no limitations . Information obtained by: patient . HPI Narrative: Patient is a 70-year-old female who presents to the ED with a complaint of right knee pain for the past few weeks that occurred after multiple twisting injuries. Patient states she has a history of chronic balance issues and twisted her knee a few weeks ago and has had continued right knee pain which is worse with flexion and weightbearing causing radiation of pain into her right leg and ankle. She denies any injury to her hip or ankle. She has been taking Tylenol for pain at times with some relief. Denies any calf swelling, recent travel or recent surgeries. Related Data Home Medications Medication Instructions Recorded Confirmed naproxen sodium [Aleve] 220 mg PO BID PRN 07/28/13 09/11/20 Smooth Move Tea 1 PO TID 07/29/17 08/08/20 docusate sodium [Stool Softener] 100 mg PO PRN cap 01/25/18 09/11/20 mineral oil [Mineral Oil Light] 25 ml PO DAILY 01/25/18 09/11/20 blood sugar diagnostic #100 each 06/20/19 08/08/20 blood-glucose meter #1 each 06/20/19 08/08/20 lancets #100 each 06/20/19 08/08/20 aspirin 81 mg tablet,delayed 81 mg PO DAILY 08/08/19 09/11/20 release nortriptyline 50 mg capsule 50 mg PO QHS 08/08/19 09/11/20 divalproex 250 mg tablet,delayed 250 mg PO DAILY tab 10/23/19 09/11/20 release minoxidil 5 % topical solution 1 ml TP BID #120 ml 01/30/20 09/11/20 pantoprazole 20 mg tablet,delayed 20 mg PO DAILY #90 tab-cap 02/04/20 09/11/20 release meclizine 25 mg PO TID PRN #30 tab 02/21/20 09/11/20 clonazepam 0.5 mg tablet 0.5 mg PO BID 03/26/20 09/11/20 atorvastatin 10 mg tablet 10 mg PO DAILY #90 tab-cap 07/23/20 09/11/20 lamotrigine [Lamictal] 100 mg PO BID 09/11/20 09/11/20 Previous Rx's Medication Instructions Recorded blood sugar diagnostic #100 each 06/20/19 blood-glucose meter #1 each 06/20/19 lancets #100 each 06/20/19 minoxidil 5 % topical solution 1 ml TP BID #120 ml 01/30/20 pantoprazole 20 mg tablet,delayed 20 mg PO DAILY #90 tab-cap 02/04/20 release meclizine 25 mg PO TID PRN #30 tab 02/21/20 atorvastatin 10 mg tablet 10 mg PO DAILY #90 tab-cap 07/23/20 Allergies Allergy/AdvReac Type Severity Reaction Status Date / Time egg AdvReac Mild SKIN RASH Verified 09/11/20 18:21 tomato AdvReac Mild SKIN RASH Verified 09/11/20 18:21 POTATO AdvReac Mild SKIN RASH Uncoded 09/11/20 18:21 General Stated Complaint: Orthopedic NELI: 3 Review of Systems All systems reviewed & are unremarkable except as noted in HPI and below Constitutional Constitutional: Reports as per HPI, Denies chills and Denies fever(s) Eyes Eyes: Denies blurry vision ENT Ears, Nose, Mouth, and Throat: Denies dizziness, Denies sore throat and Denies throat swelling Cardiovascular Cardiovascular: Denies chest pain and Denies dyspnea Respiratory Respiratory: Denies cough and Denies dyspnea Gastrointestinal Gastrointestinal: Denies abdominal pain, Denies diarrhea and Denies vomiting Genitourinary Genitourinary: Denies hematuria and Denies dysuria Musculoskeletal Musculoskeletal: Denies back pain and Denies numbness Integumentary/Breasts Skin/Breast: Denies lesions and Denies rash Neurologic Neurologic: Denies dizziness, Denies localized weakness and Denies numbness Allergic/Immunologic Allergic/Immunologic: Denies throat swelling [facility] Medical History (Updated 09/11/20 @ 20:21 by Philly Abdullahi DO) Anxiety (05/30/14) Anxiety and depression Chest pain, unspecified (05/09/13) nl MPI 05/07/13 EF 71% Chronic constipation Chronic constipation (05/27/17) [facility] gastro Colon cancer Cyst of breast, right, solitary (03/2018) GERD (gastroesophageal reflux disease) Headache HLD (hyperlipidemia) Hyperlipidemia (03/23/12) 03/2019 labs: 10-year ASCVD risk = ~14.5% --> started on moderate intensity statin therapy IFG (impaired fasting glucose) Irritable bowel syndrome (03/23/12) Dr. Iglesais GI [facility] Memory loss neurology clinic note dated 09/28/17 Microscopic hematuria (03/25/17) 02/2017 urology consultation: negative cystoscopy with retrograde pyelogram; Recommend annual UAs with repeat workup in 3-5 years if persistent Partial symptomatic epilepsy with complex partial seizures, intractable, without status epilepticus [facility] Neuro Implanted stimulator Telogen effluvium [facility] Derm Tubular adenoma of colon (07/12/17) descending colon Surgical History Colectomy (~1994) For colon CA Social History Smoking/Tobacco Use Status: Never Alcohol Intake: never Drug use: Never Substance use type: does not use Caregiver/Support person: No Household members: spouse Communication Needs: Language Barriers What type of physical activity do you participate in: none Do you feel safe at home: Yes Do you feel safe in your relationship?: Yes Exam Const General: cooperative, healthy appearing and no acute distress HENMT Head: normal to inspection Mouth: oral mucosae normal Eyes General: appearance normal, both eyes and all related structures Neck Neck: normal visual inspection Resp Effort & Inspection: normal respiratory effort and able to speak in complete sentences Cardio Rate: regular rate Skin General skin exam: no rashes or lesions noted Neuro General: patient alert, patient awake and patient oriented x3 Motor: muscle tone normal throughout Extrem General: normal to inspection and full ROM Right lower extremity: knee Details: normal to inspection Other: Pain in right knee with full flexion. Pain reproducible lower leg with full flexion of right knee. Some pain with valgus and varus stress. Negative anterior and posterior drawer test. No ligamentous laxity. No right calf tenderness. No lower leg edema. Right DP/PT pulses intact. Negative Homans' sign. Psych Appearance: grossly normal Affect: normal affect Course Vital Signs Vital signs: Vital Signs Temperature 98.1 F 09/11/20 18:17 Pulse 88 09/11/20 18:17 Blood Pressure 99/75 L 09/11/20 18:17 Pulse Oximetry 98 09/11/20 18:17 Temperature 98.1 F 09/11/20 18:17 Temperature Source Temporal Artery Scan 09/11/20 18:17 Pulse 88 09/11/20 18:17 Respiratory Effort Non-Labored 09/11/20 18:19 Blood Pressure 99/75 L 09/11/20 18:17 Blood Pressure Position Sitting 09/11/20 18:17 Pulse Oximetry 98 09/11/20 18:17 Oxygen Delivery Method Room Air 09/11/20 18:17 Oxygen Flow Rate 0 09/11/20 18:17
[2020-09-11] MEDS: oxyCODONE 5 MG TAB PO (19:04)
--- NOTE | 2020-09-11 19:22 | DI.RAD_ITS ---
EXAM: XR KNEE RT 3V AP,LAT,CAM CLINICAL HISTORY: s/p twisting injury, r/o fx/effusion. TECHNIQUE: 2D digital imaging was performed. COMPARISON: CR RIGHT KNEE LIMITED 1 OR 2 VIEW from 07/18/2014 FINDINGS: BONES: No acute fracture is present. No bony destructive lesion is seen. JOINTS: The knee is normally aligned. No joint effusion is seen. Marked degenerative changes are seen about the knee particularly at the patellofemoral joint. SOFT TISSUE: There may be a small joint effusion. IMPRESSION: No acute fracture or dislocation. DATA REPOSITORY: RADIATION DOSE DELIVERED:
--- NOTE | 2020-09-11 19:43 | DI.VRAD_ITS ---
PROCEDURE INFORMATION: Exam: XR Right Knee Exam date and time: 09/11/2020 7:23 PM Age: 70 years old Clinical indication: Injury or trauma; Other: Twisting injury; Swelling (edema); Knee; Right TECHNIQUE: Imaging protocol: XR Right knee. Views: 3 views. COMPARISON: CR RIGHT KNEE LIMITED 1 OR 2 VIEW 07/18/2014 10:35 AM FINDINGS: Bones/joints: There are degenerative changes with joint space narrowing of the lateral compartment, worse compared to prior study. There is early subchondral cyst formation in the proximal tibia. Marginal osteophyte formation noted involving the medial and lateral compartment. There is severe degenerative changes in the patellofemoral articulation, worse compared to prior exam. There appears to be a small joint effusion. Soft tissues: Normal. IMPRESSION: Interval progression of osteoarthritis with associated small joint effusion. Dictated and Authenticated by: Meche Solomon MD. Ordering:JESUS Fraga MD
[2020-09-11 20:02] VITALS: BP 133/79; PULSE 77; RESP 16; TEMP 36.9; O2SAT 96
--- NOTE | 2020-09-11 20:36 | NUR.NOTE ---
Nursing Note: right knee wrapped with saira. Pt able to dress herself independently and walk around room without difficulty.
== END 2020-09-11 20:45 | disposition home or self-care (01) ==
PROVIDERS: Emergency Provider Physician Assistant; PCP Nurse Practitioner Family
DX: S83.8X1A Sprain of other specified parts of right knee, initial encounter (principal); X50.9XXA Other and unspecified overexertion or strenuous movements or postures, initial encounter; M17.11 Unilateral primary osteoarthritis, right knee
CPT/HCPCS: 73562; 99283; 99284

== ENCOUNTER 2021-01-20 01:25 | Outpatient (CLI) | payer OTHER, SELFPAY ==
--- NOTE | 2021-01-20 10:49 | DI.RAD_ITS ---
EXAM: XR SHOULDER RT COMPLETE 2+V CLINICAL HISTORY: R shoulder pain s/p twisting/falling injury,m25.511. TECHNIQUE: 2D digital imaging was performed. COMPARISON: No exams were available for comparison FINDINGS: BONES: No acute fracture is present. No bony destructive lesion is seen. JOINTS: No dislocation present. Spurring at the AC joint and glenoid. Glenohumeral joint space is we ll maintained. SOFT TISSUE: Normal. Visualized portions of the right lung are unremarkable. IMPRESSION: Degenerative changes of the AC joint and glenohumeral joint. Acute abnormality. DATA REPOSITORY: RADIATION DOSE DELIVERED:
== END 2021-01-20 01:26 ==
PROVIDERS: PCP Nurse Practitioner Family; Visit Provider Nurse Practitioner Family
DX: M25.511 Pain in right shoulder (principal); M19.011 Primary osteoarthritis, right shoulder
CPT/HCPCS: 73030

== ENCOUNTER 2021-02-12 14:05 | Outpatient (REF) | payer OTHER, SELFPAY ==
[2021-02-12 18:16] LABS: Bilirubin Negative (Negative); Blood Small (Negative); Clarity Clear (Clear); Glucose Negative (Negative); Ketones Negative (Negative); Leukocyte Esterase Negative (Negative); Nitrite Negative (Negative); Specific Gravity 1.025 (1.005-1.025); Urobilinogen 0.2 EU/dL (Up TO 0.2); pH 5.5 (5-8)
[2021-02-12 18:26] LABS: Bacteria Negative HPF (Negative); C & S Indicated? No; Casts Negative LPF (Negative); Crystals Negative HPF (Negative); Epithelial Cells Few HPF (Negative); Mucus Negative (Negative)
[2021-02-12 18:39] LABS: Calculated LDL 92 mg/dL (<100); Cholesterol 216 mg/dL (<200); HDL Cholesterol 112 mg/dL (40-60); Triglyceride 63 mg/dL (<150)
== END 2021-02-12 14:06 | disposition home or self-care (01) ==
LOC: LBN 14:05
PROVIDERS: PCP Nurse Practitioner Family; Visit Provider Nurse Practitioner Family
DX: E78.5 Hyperlipidemia, unspecified (principal); R31.29 Other microscopic hematuria
CPT/HCPCS: 80061; 81003; 81015

== ENCOUNTER → 2021-04-07 11:18 | Outpatient (BNVA) | payer OTHER, SELFPAY | PROVIDERS: PCP Nurse Practitioner Family; Referring Provider Nurse Practitioner Family; Visit Provider Surgery | DX: L72.3 Sebaceous cyst (principal) | CPT/HCPCS: 11403; 99212 ==

== ENCOUNTER → 2021-04-21 13:28 | Outpatient (BNVA) | payer OTHER, SELFPAY | PROVIDERS: PCP Nurse Practitioner Family; Referring Provider Nurse Practitioner Family; Visit Provider Surgery | DX: L72.3 Sebaceous cyst (principal) | CPT/HCPCS: 11403; 99213 ==

== ENCOUNTER 2022-01-27 15:49 | Emergency (ER) | payer OTHER, SELFPAY ==
[2022-01-27 15:55] VITALS: BP 109/42; PULSE 92; RESP 18; TEMP 37; O2SAT 98
[2022-01-27 17:07] VITALS: RESP 16
--- NOTE | 2022-01-27 17:30 | RT.EKG_ITS ---
APPROVED REPORT Exam: Resting ECG Reason for Exam: Chest Pain Patient Location: E HR:88 bpm ECG Measurements Heart Rate 88 AXIS NJ 185 P 74 QRSd 85 QRS -9 QT 356 T 37 QTc 430 Conclusion Sinus rhythm...normal P axis, V-rate 60- 99 sinus rhythm, left axis, non ischemic
--- NOTE | 2022-01-27 17:30 | DI.RAD_ITS ---
Exam(s) XR SHUNT SERIES EXAM: XR SHUNT SERIES CLINICAL HISTORY: BELT LACER shunt, possible partial seizures. TECHNIQUE: 2D digital imaging was performed. COMPARISON: No exams were available for comparison Findings: Hyperostosis frontalis interna of the skull. Dental implants. There is a nerve stimulator device no gage in the left chest wall with tip ending in the left lower cervical region. Degenerative changes o f the cervical spine, thoracic and lumbar spine are noted. The heart size is normal. The bowel gas pattern is unremarkable. There is a moderate quantity of stool. Surgical clips are noted in the mid line of the abdomen. No dilated bowel loops. No shunt tubing is seen. IMPRESSION: 1. Nonobstructive bowel gas pattern. 2. No acute pulmonary findings. 3. Cervical spine nerve stimulator device. No evidence of ventriculoperitoneal shunt tubing. DATA REPOSITORY: RADIATION DOSE DELIVERED:
--- NOTE | 2022-01-27 17:30 | DI.CT_ITS ---
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 TECHNIQUE: Imaging Protocol: Axial computed tomography images with coronal and sagittal reformatted images were created and reviewed COMPARISON: CT CT HEAD WO from 02/21/2020 FINDINGS: Ventricles and Extra axial spaces: Normal in size and morphology for the patient's age. Hemorrhage: None. Cerebral parenchyma: Multiple scattered focal calcifications. Mild atrophy. Midline shift: None. Brainstem/Cerebellum: Normal. Calvarium: Hyperostosis frontalis interna. Visualized Paranasal sinuses/Mastoids: Clear. Soft Tissues: Unremarkable. IMPRESSION: No acute intracranial process. RADIATION DOSE DELIVERED: 729.71mGy.cm Total DLP DATA REPOSITORY: All CT scans at this facility are submitted to the National Radiology Data Registry (NRDR) Dose Index Registry (DIR) with the [employer] ([employer]). RADIATION OPTIMIZATION: All CT scans at this facility use at least one of these dose optimization te chniques: automated exposure control; mA and/or kV adjustment per patient size (includes targeted exa ms where dose is matched to clinical indication); or iterative reconstruction.
[2022-01-27 17:52] LABS: Abs Immature Grans 0.03 10^3/uL (0.0-0.06); Absolute Basophil Count 0.07 10^3/uL (0.0-0.2); Absolute Eosinophil Count 0.03 10^3/uL (0.0-0.7); Absolute Lymphocyte Count 1.87 10^3/uL (1.2-3.4); Absolute Monocyte Count 0.65 10^3/uL (0.1-0.8); Absolute Neutrophil Count 7.52 10^3/uL (1.2-6.7); Basophils % 0.7; Eosinophils % 0.3; HCT 39.6 % (36.0-46.0); Immature Grans % 0.3; Lymphocytes % 18.4; MCHC 30.3 % (32.0-36.0); MCV 89.2 fL (80-95); MPV 9.2 fL (8.0-11.0); Monocytes % 6.4; Neutrophils % 73.9; Nucleated RBC 0 %; Platelet Count 328 10^3/uL (130-400); RBC 4.44 10^6/uL (3.93-5.22); RDW 14.3 % (11.7-14.6); RDW-SD 46.5 fL; WBC 10.17 10^3/uL (4.4-10.8)
[2022-01-27 18:06] LABS: ALT 22 U/L (14-59); AST 16 U/L (15-37); Albumin 3.8 g/dL (3.4-5.0); Alkaline Phosphatase 130 U/L (46-116); BUN 21 mg/dL (7-18); Bilirubin, Total 0.3 mg/dL (0.2-1.0); CREATININE 1.1 mg/dL (0.55-1.02); Calcium 9.4 mg/dL (8.5-10.1); Chloride 103 mmol/L (98-107); Estimated GFR 48.69 (mL/min/1.73m2); Glucose 107 mg/dL (74-106); Potassium 4.6 mmol/L (3.5-5.1); Sodium 142 mmol/L (136-145); Total Protein 8.4 g/dL (6.4-8.2); Troponin I < 50 ng/L (<or=60)
[2022-01-27 18:27] LABS: Bilirubin Negative (Negative); Blood Trace-intact (Negative); Clarity Clear (Clear); Glucose Negative (Negative); Ketones 15 mg/dL (Negative); Leukocyte Esterase Small (Negative); Nitrite Negative (Negative); Specific Gravity >= 1.030 (1.005-1.025); Urobilinogen 0.2 EU/dL (Up TO 0.2); pH 6.5 (5-8)
--- NOTE | 2022-01-27 18:29 | W.ED.GENAD ---
Discharge Plan Disposition Patient Disposition: HOME Condition: Improving Discharge Details Clinical Impression: Shaking, Acute UTI Primary Care Provider: Liz Hall ED Provider: Ehsan Mcpherson Home Meds and New Rx's Prescriptions: New cefpodoxime 100 mg tablet 100 mg PO BID 5 Days Qty: 10 0RF Rx Instructions: must administer with a meal/food No Action minoxidil 5 % solution 1 ml TP BID Qty: 120 3RF pantoprazole 20 mg tablet,delayed release (DR/EC) 20 mg PO DAILY Qty: 90 0RF Rx Instructions: Take 20 mg daily once daily in the morning at least 20-30 minutes before first meal of the day triamcinolone acetonide 0.1 % cream 1 applic topical BID Qty: 15 0RF Rx Instructions: Mix small amount with Lubriderm and apply to right leg skin at rash. (DME) blood-glucose meter Misc See Rx Instructions .ROUTE .MEDSUPPLY Qty: 1 0RF Rx Instructions: As directed to check daily morning fasting blood glucose. No insulin. Dispense covered brand. (DME) Blood Glucose Test Strip See Rx Instructions .ROUTE .MEDSUPPLY Qty: 100 3RF Rx Instructions: As directed to check daily morning fasting blood glucose. No insulin. Dispense covered brand. (DME) lancets Misc See Rx Instructions .ROUTE .MEDSUPPLY Qty: 100 3RF Rx Instructions: As directed to check daily morning fasting blood glucose acetaminophen 500 mg tablet 500 - 1,000 mg PO TID PRN (Reason: pain) Qty: 270 0RF ibuprofen [Advil] 200 mg tablet 400 mg PO TID PRN0RF polyethylene glycol 3350 [Miralax] 17 gram/dose powder 17 g PO DAILY Qty: 119 0RF smooth move tea 1 PO TID 0RF Rx Instructions: [facility] GI docusate sodium [Stool Softener] 100 MG capsule 100 mg PO PRN 0RF Rx Instructions: 1-2 caps daily prn mineral oil [Mineral Oil Light] 25 ML oil 25 ml PO DAILY 0RF Label Comments: uses for constipation Rx Instructions: USES FOR CONSTIPATION nortriptyline 50 mg capsule 50 mg PO QHS 0RF Rx Instructions: per [facility] aspirin [Adult Aspirin Regimen] 81 mg tablet,delayed release (DR/EC) 81 mg PO DAILY 0RF divalproex 250 mg tablet,delayed release (DR/EC) 250 mg PO DAILY 0RF Rx Instructions: 10/22/19 Dr Santos. Decreased to daily from BID. mk clonazepam 0.5 mg tablet See Rx Instructions PO BID 0RF Rx Instructions: .5mg am, 1 mg pm [facility] note dated 12/29/20 cgc atorvastatin 10 mg tablet 10 mg PO DAILY Qty: 90 3RF lamotrigine [Lamictal] 100 mg Tablet 100 mg PO BID 0RF meclizine 25 mg tablet 25 mg PO TID PRN (Reason: dizziness) Qty: 30 0RF Discharge Instructions Instructions: Urinary Tract Infection in Women (ED) Additional Instructions: Please follow-up with your neurologist and primary care doctor. Please continue with your medications, please start the antibiotic as prescribed. Return to the emergency department for any worsening symptoms specifically fevers chills nausea vomiting, or if you have breakthrough seizures or worsening neurologic symptomatology. Medical Decision Making 71-year-old female history of epilepsy on divalproex, lamotrigine, presents with tremor-like activity in her right upper extremity that she noted yesterday, slight confusion, afebrile nontoxic neurologically intact speaking appropriately answer my questions, endorses that she is primarily Uzbek-speaking however speaks great Italian, I did use the industrial refrigeration mechanic service for history and physical and patient was speaking to me in Italian without the help of the industrial refrigeration mechanic. Alert and oriented, nonmeningeal no signs of trauma. Consider essential tremor versus med reaction versus partial seizures versus less intracranial hemorrhage or mass versus unlikely intracranial infection or spinal cord compression. Given history of DESIGN LEAD shunt will assess for evidence of hydrocephalus and shunt malfunction. Have ordered shunt series CT head, labs, troponin, EKG, culture assessment if labs imaging unremarkable patient will follow up with her neurologist in [place]. Lives at home with her . Evidence of mild UTI. CT and other lab results largely unremarkable. Patient resting comfortably tolerating p.o. No seizure activity in the department. Neurologically intact. Will follow up with primary care and neurology. HPI General Date/Time Provider Initiated Documentation: 01/27/22 16:10. HPI Narrative: 71-year-old female endorses history of epilepsy, on divalproex as well as lamotrigine, endorses lessening her neurologist several years ago, last major seizure several years ago as well, endorses shaking of the right upper extremity some chest discomfort this event began yesterday, no seizure-like activity today, patient does endorse feeling slightly confused, endorse that she has a DESIGN LEAD shunt. Denies nausea vomiting trouble breathing or change in her medications Related Data Home Medications Medication Instructions Recorded Confirmed Smooth Move Tea 1 PO TID 07/29/17 05/01/21 docusate sodium 100 mg capsule 100 mg PO PRN cap 01/25/18 05/01/21 (Stool Softener) mineral oil (Mineral Oil Light) 25 ml PO DAILY 01/25/18 05/01/21 blood sugar diagnostic (Blood #100 each 06/20/19 05/01/21 Glucose Test) blood-glucose meter #1 each 06/20/19 05/01/21 lancets #100 each 06/20/19 05/01/21 aspirin 81 mg tablet,delayed 81 mg PO DAILY 08/08/19 05/01/21 release (Adult Aspirin Regimen) nortriptyline 50 mg capsule 50 mg PO QHS 08/08/19 05/01/21 divalproex 250 mg tablet,delayed 250 mg PO DAILY tab 10/23/19 05/01/21 release minoxidil 5 % topical solution 1 ml TP BID #120 ml 01/30/20 05/01/21 pantoprazole 20 mg tablet,delayed 20 mg PO DAILY #90 tab-cap 02/04/20 05/01/21 release meclizine 25 mg tablet 25 mg PO TID PRN #30 tab 02/21/20 05/01/21 lamotrigine 100 mg tablet 100 mg PO BID 09/11/20 05/01/21 (Lamictal) acetaminophen 500 mg tablet 500 - 1,000 mg PO TID PRN #270 12/05/20 05/01/21 tab-cap ibuprofen 200 mg tablet (Advil) 400 mg PO TID PRN tab 12/05/20 05/01/21 triamcinolone acetonide 0.1 % 1 applic TOPICAL BID #15 g 12/24/20 05/01/21 topical cream clonazepam 0.5 mg tablet See Rx Instructions PO BID 12/30/20 05/01/21 polyethylene glycol 3350 17 17 g PO DAILY #119 g 02/12/21 05/01/21 gram/dose oral powder (Miralax) atorvastatin 10 mg tablet 10 mg PO DAILY #90 tab-cap 08/05/21 cefpodoxime 100 mg tablet 100 mg PO BID 5 Days #10 tab 01/27/22 Previous Rx's Medication Instructions Recorded blood sugar diagnostic (Blood #100 each 06/20/19 Glucose Test) blood-glucose meter #1 each 06/20/19 lancets #100 each 06/20/19 minoxidil 5 % topical solution 1 ml TP BID #120 ml 01/30/20 pantoprazole 20 mg tablet,delayed 20 mg PO DAILY #90 tab-cap 02/04/20 release meclizine 25 mg tablet 25 mg PO TID PRN #30 tab 02/21/20 acetaminophen 500 mg tablet 500 - 1,000 mg PO TID PRN #270 12/05/20 tab-cap triamcinolone acetonide 0.1 % 1 applic TOPICAL BID #15 g 12/24/20 topical cream polyethylene glycol 3350 17 17 g PO DAILY #119 g 02/12/21 gram/dose oral powder (Miralax) atorvastatin 10 mg tablet 10 mg PO DAILY #90 tab-cap 08/05/21 cefpodoxime 100 mg tablet 100 mg PO BID 5 Days #10 tab 01/27/22 Allergies Allergy/AdvReac Type Severity Reaction Status Date / Time egg AdvReac Mild SKIN RASH Verified 04/21/21 13:31 tomato AdvReac Mild SKIN RASH Verified 04/21/21 13:31 POTATO AdvReac Mild SKIN RASH Uncoded 04/21/21 13:31 General Stated Complaint: GenMedical NELI: 3 Review of Systems Narrative: Review of Systems Constitutional: negative Eyes: negative ENT: negative Cardiovascular: negative Respiratory: negative Gastrointestinal: negative : negative Musculoskeletal: negative Skin: negative Neurologic: Limb shaking, confusion Psych: negative PFSH All Active Problems (Updated 01/27/22 @ 21:02 by Ehsan Mcpherson MD) Shaking (Acute) Acute UTI (Acute) Sebaceous cyst (Acute) Frequent falls (Acute) Renal cyst (Chronic) 08/20/2020 US: simple cyst Right knee pain (Acute) Colon wall thickening (Acute) IFG (impaired fasting glucose) (Chronic) Cyst of breast, right, solitary (Chronic 03/2018) Anxiety and depression (Chronic) Telogen effluvium (Chronic) [facility] Derm Partial symptomatic epilepsy with complex partial seizures, intractable, without status epilepticus (Chronic) [facility] Neuro Implanted stimulator 2008 Microscopic hematuria (Chronic 03/25/17) 02/2017 urology consultation: negative cystoscopy with retrograde pyelogram; Recommend annual UAs with repeat workup in 3-5 years if persistent Memory loss (Chronic) neurology clinic note dated 09/28/17 Low back pain (Acute 07/10/14) XRay [facility] 2.2013: DJD, mild anterolithesis L4 against L5 Liver function abnormality (Acute 05/03/14) GI [facility] neg CT, lab w/u; ? from antiseizure meds Irritable bowel syndrome (Chronic 03/23/12) Dr. Iglesias GI [facility] Hyperlipidemia (Chronic 03/23/12) 03/2019 labs: 10-year ASCVD risk = ~14.5% --> started on moderate intensity statin therapy Headache (Acute 03/23/12) Dyspepsia (Acute 05/03/14) GI [facility] EGD 03/2009 Hpylori treated and resolved Chronic constipation (Chronic 05/27/17) [facility] GI Medical History (Updated 01/27/22 @ 21:02 by Ehsan Mcpherson MD) Chest pain, unspecified (05/09/13) nl MPI 05/07/13 EF 71% Colon cancer GERD (gastroesophageal reflux disease) Headache Tubular adenoma of colon (07/12/17) descending colon Surgical History Colectomy (~1994) For colon CA Social History Smoking/Tobacco Use Status: Never Smoking risk assessment performed?: Yes Alcohol Intake: never Drug use: Never Substance use type: does not use Caregiver/Support person: No Household members: spouse Communication Needs: Language Barriers Current gender identity: female What type of physical activity do you participate in: none Do you feel safe at home: Yes Do you feel safe in your relationship?: Yes Exam Narrative Exam Narrative: Physical Examination General: alert, awake, cooperative, resting comfortably, no acute distress HEENT: normocephalic, atraumatic; PERRL, EOM intact, conjunctiva normal; no nasal discharge; moist mucous membranes, oral and pharyngeal mucosa normal, tolerating secretions Neck: supple, trachea midline; full ROM Chest: normal to inspection Respiratory: normal respiratory effort, speaking in full sentences, clear to auscultation, no wheezing, rales or rhonchi Cardiac: regular rate, regular rhythm, S1S2 intact, no murmurs rubs or gallops GI: abdomen soft, non-tender, non-distended; no palpable mass or hepatosplenomegaly Skin: no lesions, rashes or trauma appreciated Neuro: AAOx3, normal speech, moving all extremities; 5 out of 5 strength upper and lower extremities, no ataxia no aphasia Extremities: No peripheral edema Psych: Appropriate mood and affect Course Vital Signs Vital signs: Vital Signs Temperature 37.0 C 01/27/22 15:55 Pulse 92 H 01/27/22 15:55 Respiratory Rate 18 01/27/22 15:55 Blood Pressure 109/42 L 01/27/22 15:55 Pulse Oximetry 98 01/27/22 15:55 Temperature 37.0 C 01/27/22 15:55 Temperature Source Skin 01/27/22 15:55 Pulse 92 H 01/27/22 15:55 Respiratory Rate 16 01/27/22 17:07 Respiratory Effort Non-Labored 01/27/22 17:07 Respiratory Depth Normal 01/27/22 17:07 Respiratory Pattern Normal 01/27/22 17:07 Blood Pressure 109/42 L 01/27/22 15:55 Blood Pressure Position Sitting 01/27/22 15:55 Pulse Oximetry 98 01/27/22 15:55 Oxygen Delivery Method Room Air 01/27/22 15:55 Oxygen Flow Rate 0 01/27/22 15:55 Pain Level 0 01/27/22 15:55 Lab/Test Results Lab/Test Results: Laboratory Tests Range/Units 01/27/22 01/27/22 01/27/22 17:20 17:20 18:15 WBC (4.4-10.8) 10^3/uL 10.17 RBC (3.93-5.22) 10^6/uL 4.44 Hgb (11.2-15.7) g/dL 12.0 Hct (36.0-46.0) % 39.6 MCV (80-95) fL 89.2 MCH (27.0-33.0) pg 27.0 MCHC (32.0-36.0) % 30.3 L RDW (11.7-14.6) % 14.3 Plt Count (130-400) 10^3/uL 328 MPV (8.0-11.0) fL 9.2 Immature Gran % 0.3 Neutrophils % 73.9 Lymphocytes % 18.4 Monocytes % 6.4 Eosinophils % 0.3 Basophils % 0.7 Nucleated RBC % % 0 Absolute Neutrophils (1.2-6.7) 10^3/uL 7.52 H Absolute Lymphocytes (1.2-3.4) 10^3/uL 1.87 Absolute Monocytes (0.1-0.8) 10^3/uL 0.65 Absolute Eosinophils (0.0-0.7) 10^3/uL 0.03 Absolute Basophils (0.0-0.2) 10^3/uL 0.07 Sodium (136-145) mmol/L 142 Potassium (3.5-5.1) mmol/L 4.6 Chloride (98-107) mmol/L 103 Carbon Dioxide (21.0-32.0) mmol/L 30.0 Anion Gap (3-11) mmol/L 9.0 BUN (7-18) mg/dL 21 H Creatinine (0.55-1.02) mg/dL 1.1 H Estimated GFR/1.73 m2 (mL/min/1.73m2) 48.69 Glucose (74-106) mg/dL 107 H Calcium (8.5-10.1) mg/dL 9.4 Total Bilirubin (0.2-1.0) mg/dL 0.3 AST (15-37) U/L 16 ALT (14-59) U/L 22 Alkaline Phosphatase (46-116) U/L 130 H Troponin I (<or=60) ng/L < 50 Total Protein (6.4-8.2) g/dL 8.4 H Albumin (3.4-5.0) g/dL 3.8 Urine Color (Yellow) Yellow Urine Clarity (Clear) Clear Urine pH (5-8) 6.5 Ur Specific Mcgraws (1.005-1.025) >= 1.030 H Urine Protein (Negative) mg/dL Negative Urine Ketones (Negative) mg/dL 15 H Urine Blood (Negative) Trace-intact H Urine Nitrite (Negative) Negative Urine Bilirubin (Negative) Negative Urine Urobilinogen (Up TO 0.2) EU/dL 0.2 Ur Leukocyte Esterase (Negative) Small H Urine Glucose (Negative) mg/dL Negative
[2022-01-27 18:44] LABS: Epithelial Cells Few HPF (Negative); WBC 20-50 HPF (0-5)
[2022-01-27 18:45] LABS: Bacteria Negative HPF (Negative); C & S Indicated? Yes; Casts Negative LPF (Negative); Crystals Negative HPF (Negative); Mucus Negative (Negative); Other Cells Few Renal (Negative)
--- NOTE | 2022-01-27 19:35 | NUR.NOTE ---
Nursing Note: Pt to DI for exams.
[2022-01-27 19:56] VITALS: BP 155/80; PULSE 85; RESP 18; O2SAT 98
--- NOTE | 2022-01-27 20:06 | DI.VRAD_ITS ---
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 Radiation optimization: All CT scans at this facility use at least one of these dose optimization techniques: automated exposure control; mA and/or kV adjustment per patient size (includes targeted exams where dose is matched to clinical indication); or iterative reconstruction. COMPARISON: CT HEAD WO 02/21/2020 1:06 PM FINDINGS: Brain: Multiple calcifications again noted scattered throughout the brain parenchyma. There is no acute intracranial hemorrhage, mass effect or midline shift. There is no large acute territorial cerebral infarct. Cerebral ventricles: No ventriculomegaly. No ventricular shunt is seen. Paranasal sinuses: Visualized sinuses are unremarkable. No fluid levels. Mastoid air cells: Visualized mastoid air cells are well aerated. Bones/joints: No acute fracture. No evidence of prior craniotomy. Soft tissues: Unremarkable. IMPRESSION: No acute intracranial hemorrhage, mass effect or midline shift. Dictated and Authenticated by: Ela Castelan MD. Ordering:RICHARDSON Moser MD
[2022-01-27 20:21] LABS: *AMPHETAMINES SCREEN URINE Negative (Negative); *BARBITURATES SCREEN URINE Negative (Negative); *BENZODIAZEPINES SCREEN URINE Negative (Negative); Cannabinoids THC Negative (Negative); Cocaine Screen,Urine Negative (Negative); METHADONE URINE SCREEN Negative (Negative); OPIATES URINE SCREEN Negative (Negative)
[2022-01-27 20:23] LABS: Tricyclic Antidepressants Positive (Negative)
--- NOTE | 2022-01-27 20:31 | DI.VRAD_ITS ---
Addendum created by Ela Castelan MD on 01/27/2022 8:41:33 PM EST: The findings of these radiographs were discussed with technologist Simi Ozuna at 8:31 p.m. EST on 01/27/2022. The left and right labeling of the radiographs will be corrected and images re-sent. Initial report created on 01/27/2022 8:30:17 PM EST: PROCEDURE INFORMATION: Exam: XR Shunt Series With 4 XR Procedures Exam date and time: 01/27/2022 5:37 PM Age: 71 years old Clinical indication: Terrazzo Installer shunt, possible partial seizures; Other: Terrazzo Installer shunt, partial seizures; Other: Terrazzo Installer shunt possible partial seizures TECHNIQUE: Imaging protocol: XR Shunt Series was performed with skull less than 4 views, neck 1 view, chest 1 view, and abdomen 1 view. COMPARISON: CT HEAD WO 01/27/2022 7:31 PM FINDINGS: Tubes, catheters and devices: There is a catheter noted with the tip in the neck and a battery pack noted in the upper chest wall, with the appearance of a vagal nerve stimulator. Sinuses: Visualized paranasal sinuses are well aerated. Airway: Upper airway and trachea are unremarkable in the neck and chest. Lungs: No consolidations. Gastrointestinal tract: Bowel is unremarkable. Surgical clips are noted in the lower abdomen/spine region. Bones/joints: No fracture. No dislocation. Soft tissues: Unremarkable. IMPRESSION: 1. Vagal nerve stimulator in place. 2. No evidence of a ventriculoperitoneal shunt. Dictated and Authenticated by: Ela Castelan MD. Ordering:PGERBER Moser MD
--- NOTE | 2022-01-27 20:36 | NUR.NOTE ---
Nursing Note: Pt without complaints at this time, request and recieve campbell and jose carlos, cont. to monitor.
[2022-01-27] MEDS: Cefpodoxime 200 MG TAB 100 MG PO (21:10)
[2022-01-27 21:15] VITALS: BP 125/54; PULSE 84; RESP 18; TEMP 37; O2SAT 96
== END 2022-01-27 21:19 | disposition home or self-care (01) ==
PROVIDERS: Emergency Provider Emergency Medicine; PCP Nurse Practitioner Family
DX: R25.8 Other abnormal involuntary movements (principal); N39.0 Urinary tract infection, site not specified; B96.89 Other specified bacterial agents as the cause of diseases classified elsewhere; R07.9 Chest pain, unspecified; Z98.2 Presence of cerebrospinal fluid drainage device; G40.909 Epilepsy, unspecified, not intractable, without status epilepticus; Z79.899 Other long term (current) drug therapy
CPT/HCPCS: 36415; 80053; 80307; 93005; 99285; 70360; 70450; 71045; 72050; 74018; 81003; 81015; 84484; 85025; 87086; 93010; 99284

== ENCOUNTER 2022-02-03 14:48 | Outpatient (REF) | payer OTHER, SELFPAY ==
[2022-02-03 19:37] LABS: WBC 20-50 HPF (0-5)
[2022-02-03 19:38] LABS: Bacteria Few HPF (Negative); C & S Indicated? C&S Done As Ordered; Crystals Negative HPF (Negative); Epithelial Cells Moderate HPF (Negative); Mucus Heavy (Negative); Other Cells Mod Transitional (Negative)
== END 2022-02-03 14:49 | disposition home or self-care (01) ==
LOC: LBN 14:48
PROVIDERS: PCP Nurse Practitioner Family; Visit Provider Nurse Practitioner Family
DX: R31.9 Hematuria, unspecified (principal); R30.0 Dysuria
CPT/HCPCS: 81015; 87086

== ENCOUNTER 2022-02-09 00:09 | Outpatient (CLI) | payer OTHER, SELFPAY ==
--- NOTE | 2022-02-09 09:00 | ETT_ITS ---
APPROVED REPORT Exam: Exercise Treadmill Patient Location: Out-Patient Room/Bed: Stress Nurse: Melinda Caldwell RN Ordering Provider:TRENTON WHITE, Contact Number: [phone] BMI: 31.09 Baseline Rhythm: Sinus Rhythm Indications: r/o CAD, chest pain Medical History Medical History: Hyperlipidemia, anxiety, depression, seizure disorder Cardiac Medications: Atorvastatin Allergies: Egg, tomato, potato Cardiac Risk Factors: Hyperlipidemia, obesity Previous Cardiac Procedures: None Pretest Chest Pain Characteristics: None Exercise History: Sedentary Physical Disabilities: Back and leg pain Lung Sounds: Clear to auscultation Heart Sounds: Regular Stress Test Details Test: Exercise stress testing was performed using a Marco protocol. Rest Stress HR Resting HR Supine: 88 bpm Max Heart Rate (APMHR): 147 bpm Resting HR Standin bpm Target HR (85% APMHR): 124 bpm Max HR Achieved: 114 bpm % of APMHR: 77 Recovery HR: 92 bpm HR response to stress: Normal HR response to stress Comment: Nondiagnostic, did not reach THR BP Resting BP Supine: 174/70 mmHg Resting BP Standin/78 mmHg Max BP: 200/78 mmHg Recovery BP: 178/72 mmHg BP response to stress: Normal blood pressure response to stress. Comment: Baseline hypertensive ECG Resting ECG: Sinus Rhythm Ectopy: None Stress ECG: Sinus Tachycardia ST Change: Nondiagnostic low heart rate Arrhythmia: None Recovery ECG: Sinus Rhythm Recovery ST Change: Nondiagnostic low heart rate Recovery Arrhythmia: None Clinical Reason for Termination: Fatigue Stress Symptoms: General Fatigue, Dyspnea Exercise duration: 1 min49 sec Highest Stage Reached: Stage 1: 1.7 mph at 10% grade. Exercise capacity: 4.20 METs Rock Treadmill Score: 1.7 Rate Pressure Product: [id number] Stress ECG Conclusion 1. The resting electrocardiogram was within normal limits 2. Patient exercised briefly on the treadmill completing a workload of 4.2 METS and exercising for on ly 1 minute and 49 seconds limited by fatigue 3. Resting hypertension. Normal hemodynamic response to exercise. The patient achieved 77% of predi cted heart rate for age 4. The electrocardiographic portion of the test was nondiagnostic for myocardial ischemia due to inad equate heart rate 5. There were no dysrhythmias Rock Treadmill Score is 1.7 which is Moderate risk. Stress Test Summary STAGE Time (mins) Speed (mph) Grade (%) HR BP SYMPTOMS METS Supine 88 174/70 Standing 92 178/78 SpO2 95% 1 3 1.7 10 110 Moderate SOB, SpO2 92% 4.6 1 min recovery 114 200/78 Mild SOB, SpO2 96% 3 min recovery 98 192/70 SOB resolved, SpO2 95% 6 min recovery 92 178/72 SpO2 96%
== END 2022-02-09 00:29 ==
PROVIDERS: PCP Nurse Practitioner Family; Visit Provider Nurse Practitioner Family
DX: R07.89 Other chest pain (principal)
CPT/HCPCS: 93016; 93018; 93017

== ENCOUNTER → 2022-03-02 01:44 | Outpatient (CLI) | payer MEDICARE, SELFPAY ==
--- NOTE | 2022-03-02 07:15 | DI.NM_ITS ---
APPROVED REPORT Exam: Pharmacologic Patient Location: Out-Patient Room/Bed: Stress Nurse: Melinda Caldwell RN Ordering Provider:JOSE REYES, Contact Number: [phone] BMI: 31.45 Baseline Rhythm: Sinus Rhythm Indications: Indeterminate exercise treadmill test for chest pain Medical History Medical History: Hyperlipidemia, obesity, impaired fasting glucose, anxiety, depressino, dyspepsia, m saba loss, seizure disorder Cardiac Medications: Pantorazole, atorvastatin Allergies: NKA Cardiac Risk Factors: Hyperlipidemia, obesity Previous Cardiac Procedures: none Pretest Chest Pain Characteristics: Baseline mild SOB Exercise History: Sedentary Physical Disabilities: None Lung Sounds: Clear to auscultation Heart Sounds: Regular Stress Test Details Test: Pharmacologic stress was paired with low level exercise. Reason for pharmacologic stress test: physical limitation. Nuclear Acquisition: Rest Tc-99m/Stress Tc-99m 1 day Rest Isotope: Tc-99m Sestamibi. Dose: 10.5 Date: 03/02/2022 Injection Time: 0930 Stress Isotope: Tc-99m Sestamibi. Dose: 32.0 Date: 03/02/2022 Injection Time: 1135 HR Resting HR Supine: 81 bpm Max Heart Rate (APMHR): 147.322853 bpm Resting HR Standin bpm Target HR (85% APMHR): 124.079605 bpm Max HR Achieved: 103 bpm % of APMHR: 70.07 Recovery HR: 93 bpm BP Resting BP Supine: 118/72 mmHg Resting BP Standin/68 mmHg Max BP: 138/68 mmHg Recovery BP: 124/68 mmHg ECG Resting ECG: Sinus Rhythm Ectopy: None Stress ECG: Sinus Tachycardia ST Change: Nondiagnostic low heart rate Arrhythmia: None Recovery ECG: Sinus Rhythm Recovery ST Change: Nondiagnostic low heart rate Recovery Arrhythmia: None Clinical Stress Symptoms: General Fatigue, Dyspnea Rate Pressure Product: [id number] Stress ECG Conclusion 1. The resting electrocardiogram showed poor R wave progression. 2. Patient underwent pharmacologic stress with regadenoson 3. Peak heart rate achieved was 70% of predicted for age 4. The electrocardiographic portion of the test was nondiagnostic due to inadequate heart rate 5. See MPI report Stress Test Summary STAGE HR BP Symptoms NOTES Supine 81 118/72 Baseline mild SOB SpO2 98% 1 min post Lexiscan injection 98 N/A Moderate SOB SpO2 94% 3 min post Lexiscan injection 98 128/64 SOB improving SpO2 96% 6 min post Lexiscan injection 93 124/68 SOB return to baseline mild SpO2 97% Pharmacologic stress was paired with low level exercise due to pt not reaching THR on previous ETT. P t walked on treadmill at 0.5- 0.8mph and 0% grade. Tolerated low level exercise and Lexiscan well. MPI Conclusion Myocardial perfusion is normal. There is no evidence of ischemia or infarction EF 95%, normal wall motion Radiologist Interpretation Radiologist Interpretation by: Tushar Graham MD Interpretation Date/Time: 03/02/2022 16:27:16
[2022-03-02] MEDS: Regadenoson 0.4 MG/5 ML SYR IVP (11:56)
== END ==
PROVIDERS: PCP Nurse Practitioner Family; Visit Provider Nurse Practitioner Adult Health
DX: R07.9 Chest pain, unspecified (principal)
CPT/HCPCS: 78452; 93016; 93018; 93017; J2785

== ENCOUNTER → 2022-03-09 02:21 | Outpatient (CLI) | payer MEDICARE, SELFPAY | PROVIDERS: PCP Nurse Practitioner Family; Visit Provider Nurse Practitioner Adult Health ==

== ENCOUNTER 2022-03-18 08:44 | Outpatient (CLI) | payer MEDICARE, SELFPAY ==
[2022-03-18] MEDS: Omnipaque 350 MG/ML 100 ML BTL IJ (14:29)
--- NOTE | 2022-03-18 14:31 | DI.CT_ITS ---
Exam(s) CT ABDOMEN PELVIS WO/W EXAM: CT ABDOMEN PELVIS WO/W CLINICAL HISTORY: hematuria work-up; recent creat ok,R31.29. TECHNIQUE: Imaging Protocol: Axial computed tomography images with coronal and sagittal reformatted images were created and reviewed CONTRAST MATERIAL: Intravenous: Omnipaque 100cc Oral: None COMPARISON: CT CT ABDOMEN PELVIS W from 07/29/2020 CT,NM,TMT NM MPI REST STRESS GRP from 03/02/2022 FINDINGS: VISUALIZED LUNG BASES: There is mild infiltrate in the posterior basal segment of both lower lobes. There are no pleural effusions.. ABDOMEN: KIDNEYS: Both kidneys exhibit normal size and position. There are no radiopaque renal calculi. No h ydronephrosis nor hydroureter. A 1.5 by 1.5 cm cyst in the superior pole of the right kidney is unch anged. No new cysts nor solid lesions in either kidney. Tiny cortical cyst in the posterior aspect the left kidney noted. There are no solid renal masses. No parapelvic cysts. No significant focal findings in the infundibulum and renal pelves. There is a solitary ureter on each side. These exhib it normal course and caliber. No abnormality seen in the urinary bladder. No bladder diverticuli. There is no ascites. LIVER: There are no focal hepatic lesions evident . GALLBLADDER/BILIARY: Tiny densities on the dependent wall of the gallbladder are either tiny noncalci fied calculi or polyps. There is no gallbladder wall edema. No pericholecystic fluid. CBD is not d ilated. PANCREAS: No evidence of pancreatic mass nor dilatation of the pancreatic duct. SPLEEN: Spleen is not enlarged. No obvious intrasplenic lesions. Splenic and portal veins are paten t. ADRENALS: There are no significant adrenal masses. KIDNEYS:There is an exophytic cyst measuring 1.3 x 1.3 x 1.6 cm off the superior pole of the right ki dney. No solid renal masses. No calculi nor hydronephrosis.. ABDOMINAL AORTA: Abdominal aorta is not enlarged. LYMPH NODES:There is no retroperitoneal nor paraaortic adenopathy. ABDOMINAL WALL: No evidence of significant anterior abdominal wall nor inguinal hernia. GI: There is no evidence of bowel obstruction, free air, nor abscess. PELVIS: GI: No evidence of appendicitis.There has been partial sigmoid resection. No significant focal abnor mal findings at this level. LYMPH NODES: There is no intrapelvic nor inguinal adenopathy. REPRODUCTIVE: Uterus and adnexal regions appear unremarkable. No free fluid. URINARY BLADDER: No calculi nor obvious masses evident OSSEOUS: No significant osseous lesions. Multilevel disc space narrowing. Degenerative anterolisthesis L4 upon L5, approximately 7 millimeter s. IMPRESSION: 1. There is a 1.3 x 1.6 cm cyst in the superior pole the right kidney, unchanged from 07/29/2020. No solid renal masses. No calculi. No hydronephrosis. No hydroureter. No obvious abnormality in the ureters and urinary bladder. 2. Tiny densities are noted on the dependent wall of the gallbladder, either small polyps or noncalci fied gallstones. No evidence of acute cholecystitis. CBD not dilated RADIATION DOSE DELIVERED: 3,166.07mGy.cm Total DLP DATA REPOSITORY: All CT scans at this facility are submitted to the National Radiology Data Registry (NRDR) Dose Index Registry (DIR) with the [employer] (ACR). RADIATION OPTIMIZATION: All CT scans at this facility use at least one of these dose optimization te chniques: automated exposure control; mA and/or kV adjustment per patient size (includes targeted exa ms where dose is matched to clinical indication); or iterative reconstruction.
== END 2022-03-18 09:04 ==
PROVIDERS: PCP Nurse Practitioner Family; Visit Provider Nurse Practitioner Adult Health
DX: R31.29 Other microscopic hematuria (principal); R91.8 Other nonspecific abnormal finding of lung field; N28.1 Cyst of kidney, acquired; K82.8 Other specified diseases of gallbladder; Z90.49 Acquired absence of other specified parts of digestive tract
CPT/HCPCS: 74178; J3490

== ENCOUNTER 2022-11-02 03:41 | Outpatient (CLI) | payer MEDICARE, SELFPAY ==
[2022-11-02 11:34] LABS: Abs Immature Grans 0.01 10^3/uL (0.0-0.06); Absolute Basophil Count 0.07 10^3/uL (0.0-0.2); Absolute Eosinophil Count 0.07 10^3/uL (0.0-0.7); Absolute Lymphocyte Count 1.49 10^3/uL (1.2-3.4); Absolute Neutrophil Count 5.04 10^3/uL (1.2-6.7); HCT 36.3 % (36.0-46.0); HGB 11.6 g/dL (11.2-15.7); Immature Grans % 0.1; MCV 88 fL (80-95); MPV 9.1 fL (8.0-11.0); Monocytes % 5.6; Neutrophils % 71.3; Platelet Count 277 10^3/uL (130-400); RBC 4.15 10^6/uL (3.93-5.22); RDW 13.3 % (11.7-14.6); WBC 7.08 10^3/uL (4.4-10.8)
[2022-11-02 11:37] LABS: Bilirubin Negative (Negative); Blood Negative (Negative); Clarity Cloudy (Clear); Glucose Negative (Negative); Ketones Negative (Negative); Leukocyte Esterase Large (Negative); Nitrite Negative (Negative); Specific Gravity 1.025 (1.005-1.025); Urobilinogen 0.2 EU/dL (Up TO 0.2)
[2022-11-02 11:49] LABS: Hemoglobin A1C 5.7 % (<5.7)
[2022-11-02 12:20] LABS: ALT 16 U/L (14-59); AST 15 U/L (15-37); Albumin 3.5 g/dL (3.4-5.0); Alkaline Phosphatase 132 U/L (46-116); BUN 28 mg/dL (7-18); Bilirubin, Total 0.5 mg/dL (0.2-1.0); Calcium 8.9 mg/dL (8.5-10.1); Calculated LDL 124 mg/dL (<100); Chloride 104 mmol/L (98-107); Cholesterol 226 mg/dL (<200); Estimated GFR 59.12 (mL/min/1.73m2); Glucose 101 mg/dL (74-106); HDL Cholesterol 88 mg/dL (40-60); Potassium 3.8 mmol/L (3.5-5.1); Sodium 141 mmol/L (136-145); TSH (W/Ref FT4) 2.45 uIU/mL (0.36-3.74); Total Protein 7.6 g/dL (6.4-8.2); Triglyceride 74 mg/dL (<150)
[2022-11-02 12:28] LABS: Bacteria Rare HPF (Negative); Epithelial Cells Few HPF (Negative); RBC Negative HPF (0-2)
[2022-11-02 12:29] LABS: C & S Indicated? Yes; Casts Negative LPF (Negative); Mucus Negative (Negative)
== END 2022-11-02 03:42 | disposition home or self-care (01) ==
LOC: LBO 03:41
PROVIDERS: PCP Nurse Practitioner Family; Visit Provider Nurse Practitioner Family
DX: R68.89 Other general symptoms and signs; R73.01 Impaired fasting glucose; E78.5 Hyperlipidemia, unspecified; N18.9 Chronic kidney disease, unspecified; Z13.1 Encounter for screening for diabetes mellitus; Z51.81 Encounter for therapeutic drug level monitoring
CPT/HCPCS: 36415; 80053; 80061; 81003; 81015; 83036; 84443; 85025; 87086

== ENCOUNTER 2022-11-25 20:43 | Emergency (ER) | payer MEDICARE, SELFPAY ==
--- NOTE | 2022-11-25 20:49 | W.ED.GENAD ---
Discharge Plan Disposition Patient Disposition: Home Condition: Stable Discharge Details Clinical Impression: Fall at home, Closed head injury without loss of consciousness, Abrasion of face, Contusion of left hand, Injury of right patella Primary Care Provider: Liz Hall ED Provider: Philly Abdullahi Home Meds and New Rx's Prescriptions: Continued minoxidil 5 % solution 1 ml TP BID Qty: 120 3RF triamcinolone acetonide 0.1 % cream 1 applic topical BID Qty: 15 0RF Rx Instructions: Mix small amount with Lubriderm and apply to right leg skin at rash. pantoprazole 20 mg tablet,delayed release (DR/EC) 20 mg PO DAILY Qty: 90 3RF Rx Instructions: Take 20 mg daily once daily in the morning at least 30 minutes before first meal of the day lidocaine 5 % cream 1 applic topical .BID-QID PRN (Reason: pain) Qty: 45 3RF Rx Instructions: Dispense cream, ointment, or gel atorvastatin 10 mg tablet 10 mg PO DAILY Qty: 90 3RF (DME) blood-glucose meter Misc See Rx Instructions .ROUTE .MEDSUPPLY Qty: 1 0RF Rx Instructions: As directed to check daily morning fasting blood glucose. No insulin. Dispense covered brand. (DME) Blood Glucose Test Strip See Rx Instructions .ROUTE .MEDSUPPLY Qty: 100 3RF Rx Instructions: As directed to check daily morning fasting blood glucose. No insulin. Dispense covered brand. (DME) lancets Misc See Rx Instructions .ROUTE .MEDSUPPLY Qty: 100 3RF Rx Instructions: As directed to check daily morning fasting blood glucose acetaminophen 500 mg tablet 500 - 1,000 mg PO TID PRN (Reason: pain) Qty: 270 0RF polyethylene glycol 3350 [Miralax] 17 gram/dose powder 17 g PO DAILY Qty: 119 0RF celecoxib 100 mg capsule 100 mg PO BID Qty: 60 2RF smooth move tea 1 PO TID Rx Instructions[place] [facility] [place] docusate sodium [Stool Softener] 100 MG capsule 100 mg PO PRN Rx Instructions: 1-2 caps daily prn Mineral Oil Light 25 ML oil 25 ml PO DAILY Label Comments: uses for constipation Rx Instructions: USES FOR CONSTIPATION nortriptyline 50 mg capsule 50 mg PO QHS Rx Instructions: [place] [facility] [place] divalproex 250 mg tablet,delayed release (DR/EC) 250 mg PO DAILY Rx Instructions: 10/22/19 Dr Santos. Decreased to daily from BID. mk clonazepam 0.5 mg tablet See Rx Instructions PO BID Rx Instructions: .5mg am, 1 mg pm [facility] [place] 12/29/20 [facility] lamotrigine [Lamictal] 100 mg Tablet 100 mg PO BID meclizine 25 mg tablet 25 mg PO TID PRN (Reason: dizziness) Qty: 30 0RF Discharge Instructions Instructions: Head Injury (ED), Contusion in Adults (ED), Swollen Knee Joint (ED) Additional Instructions: Your imaging today shows you have a possible fracture to your right patella (kneecap) but this may not be acute as you have no significant pain in this area. You are being placed in a knee immobilizer to help with right knee pain and immobilization. Use the crutches to help with ambulation and limit weightbearing on your right leg. The remainder of your imaging today is reassuring and shows no evidence of acute concerning or significant findings. Keep wounds clean and dry. Cover wounds with bandage if risk of contamination. Otherwise you can keep the wound open to air if resting at home to allow edges to dry and heal. Drink plenty of fluids and get plenty of rest. Alternate tylenol and motrin as needed and directed for pain. You have been placed on orthopedic follow-up list to arrange for a follow-up appointment for reevaluation of your possible right knee fracture. Follow-up with your primary care doctor in 1 week. Return to the emergency department with any worsening or new concerning symptoms. Referrals: Steffen Meza MD [ [facility] STAFF PHYSICIAN] - Discharge Data Discharge Date/Time-TO BE ENTERED AT DEPARTURE: 11/25/22 23:57 Discharge Physician: Philly Abdullahi Medical Decision Making 2100 -- 72-year-old female with a history of hyperlipidemia, migraines, seizures, GERD, irritable bowel syndrome, anxiety and colon cancer presents for evaluation after mechanical fall with complaint of head injury, left hand, right knee and bilateral hip pain. Patient endorses mechanical fall after tripping over a rug. She has superficial abrasions noted to her left forehead with tenderness extending on the left parietal scalp. She has ecchymosis to her left dorsal hand in addition to tenderness in the right medial knee and pain in bilateral hips with range of motion. No obvious orthopedic deformity noted. No chest wall or abdominal wall tenderness or evidence of trauma. No midline spinal tenderness. C-collar placed. Tetanus up-to-date 2013. We will give a dose of Tylenol p.o. and refer for CT head, facial bones, cervical spine in addition to left hand, right knee and pelvis x-ray. 2345 --imaging reviewed. CT head notes left frontal and parietal scalp hematomas but no evidence of intracranial injury. CT cervical spine and CT facial bones no acute findings. Left hand and left knee x-rays negative for acute findings. Right knee x-ray read as an acute fracture of the superior pole of the patella. Patient is mainly complaining of pain in the lateral and posterior knee. She does have infrapatellar ecchymosis but she has no significant tenderness to palpation of the patella or with movement of the patella so question whether this is an acute fracture. Reviewed with orthopedics and appears acute but may be osteophyte and agree with plan for knee immobilizer, crutches and weightbearing as tolerated and will follow up with patient in the office. Patient placed on orthopedic follow-up list. Advised on the importance of rest, ice and elevation. Usual and customary return precautions given prior to discharge. Medical Records Medical records reviewed: Yes I reviewed the patient's medical records. Imaging Data Radiologic Study: Radiologist's impression: CT Head Without Contrast Exam date and time: 11/25/2022 10:16 PM Age: 72 years old Clinical indication: Injury or trauma; Other: S/P fall, R/O intracranial inj, facial inj, cerv FX TECHNIQUE: Imaging protocol: Computed tomography of the head without contrast. COMPARISON: CT HEAD WO 01/27/2022 7:31 PM FINDINGS: Brain: There are again seen numerous parenchymal calcifications of the brain. Generalized cerebral and cerebellar volume loss with chronic small vessel ischemic changes stable. No CT evidence of acute transcortical infarction. No acute intracranial hemorrhage, midline shift, or herniation. Cerebral ventricles: No ventriculomegaly. Paranasal sinuses: Visualized sinuses are unremarkable. No fluid levels. Mastoid air cells: Visualized mastoid air cells are well aerated. Bones/joints: Unremarkable. No acute fracture. Soft tissues: Left frontal and posterior parietal scalp hematomas. Vasculature: Dense calcifications of the intracranial internal carotid and vertebral arteries. IMPRESSION: 1. Left frontal and posterior parietal scalp hematomas without underlying calvarial fracture or acute intracranial hemorrhage. 2. 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 Other remote insult could have a similar appearance. CT Maxillofacial Without Contrast Exam date and time: 11/25/2022 10:16 PM Age: 72 years old Clinical indication: Injury or trauma; Other: S/P fall, R/O intracranial inj, facial inj, cerv FX TECHNIQUE: Imaging protocol: Computed tomography of the face without contrast. COMPARISON: CT HEAD WO 01/27/2022 7:31 PM FINDINGS: Orbital cavities: Orbits are normal. Globes are unremarkable. Bones/joints: No acute fracture. Paranasal sinuses: Normal. No air-fluid levels. Soft tissues: Unremarkable. IMPRESSION: No acute findings. CT Cervical Spine Without Contrast Exam date and time: 11/25/2022 10:16 PM Age: 72 years old Clinical indication: Injury or trauma; Other: S/P fall, R/O intracranial inj, facial inj, cerv FX TECHNIQUE: Imaging protocol: Computed tomography of the cervical spine without contrast. COMPARISON: CR XR SHUNT SERIES 01/27/2022 7:41 PM FINDINGS: Tubes, catheters and devices: Left vagal stimulator is incompletely evaluated. Bones/joints: Grade 1 anterolisthesis of C3, C4, C5, and C7 appear to be chronic and degenerative in nature. No acute cervical spine fracture. No aggressive osseous lesion. No gross high-grade spinal canal stenosis is appreciated. Lungs: Lung apices are normal. Vasculature: Calcifications at the carotid bifurcations. Soft tissues: Unremarkable. IMPRESSION: Degenerative changes of the cervical spine without demonstration of acute fracture or subluxation. XR Left Hand Exam date and time: 11/25/2022 22:35 Age: 72 years old Clinical indication: Injury or trauma; Fall; Blunt trauma (contusions or hematomas); Hand; Left; Additional info: S/P fall TECHNIQUE: Imaging protocol: Radiologic exam of the Left hand. Views: 3 or more views. COMPARISON: No relevant prior studies available. FINDINGS: Bones/joints: No acute fracture or subluxation. MCP and interphalangeal degenerative changes. Soft tissues: Unremarkable.? IMPRESSION: No acute bony pathology. XR Left Knee Exam date and time: 11/25/2022 22:39 Age: 72 years old Clinical indication: Injury or trauma; Other: S/P fall, R/O acute FX; Additional info: S/P fall, R/O fracture TECHNIQUE: Imaging protocol: Radiologic exam of the Left knee. Views: 4 or more views. COMPARISON: No relevant prior studies available. FINDINGS: Bones/joints: Degenerative changes are most pronounced in the medial compartment. No acute fracture or subluxation. Soft tissues: No significant joint effusion. Benign appearing distal quadriceps enthesophyte. IMPRESSION: No acute bony pathology. XR Right Knee Exam date and time: 11/25/2022 22:27 Age: 72 years old Clinical indication: Injury or trauma; Fall; Blunt trauma; Lower leg; Right; Additional info: S/P fall TECHNIQUE: Imaging protocol: Radiologic exam of the Right knee. Views: 4 or more views. COMPARISON: No relevant prior studies available. FINDINGS: Bones/joints: Acute fracture of the upper pole of the patella without significant distraction. Chronic moderate underlying degenerative changes in the knee. No dislocation. Soft tissues: Soft tissue swelling surrounding the fracture site. IMPRESSION: Acute fracture of the upper pole of the patella without significant distraction. HPI General Mode of arrival: ambulatory. Date/Time Provider Initiated Documentation: 11/25/22 20:44. Limitations to Documentation: no limitations. Information obtained by: patient. HPI Narrative: Pt is a 72yo F with a history of hyperlipidemia, GERD, seizure disorder, anxiety, irritable bowel syndrome, colon cancer presents for mechanical fall prior to arrival. Patient states she tripped on a rug at home and used her hands to brace her fall but states her face and hands hit the metal door. She states she then fell to the ground and became twisted in the small space in front of the door. She is complaining of bilateral hip and right knee pain. She states the pain is mainly in the left side of her forehead and left side of her head. She denies LOC or vomiting. She denies chest pain, difficulty breathing or abdominal pain. She states she took Aleve at home at the time of the fall. Related Data Home Medications Medication Instructions Recorded Confirmed Smooth Move Tea 1 PO TID 07/29/17 10/29/22 docusate sodium 100 mg capsule 100 mg PO PRN 01/25/18 11/25/22 (Stool Softener) mineral oil (Mineral Oil Light 25 ml PO DAILY 01/25/18 11/25/22 topical) blood sugar diagnostic (Blood #100 ea 06/20/19 11/25/22 Glucose Test strips) blood-glucose meter #1 ea 06/20/19 11/25/22 lancets #100 ea 06/20/19 11/25/22 nortriptyline 50 mg capsule 50 mg PO QHS 08/08/19 11/25/22 divalproex 250 mg tablet,delayed 250 mg PO DAILY 10/23/19 11/25/22 release minoxidil 5 % topical solution 1 ml topical BID #120 mL 01/30/20 11/25/22 meclizine 25 mg tablet 25 mg PO TID PRN dizziness #30 tabs 02/21/20 11/25/22 lamotrigine 100 mg tablet 100 mg PO BID 09/11/20 11/25/22 (Lamictal) acetaminophen 500 mg tablet 500 - 1,000 mg PO TID PRN pain 12/05/20 11/25/22 #270 tab-caps triamcinolone acetonide 0.1 % 1 applic topical BID #15 grams 12/24/20 11/25/22 topical cream clonazepam 0.5 mg tablet See Rx Instructions PO BID 12/30/20 11/25/22 polyethylene glycol 3350 17 17 g PO DAILY constipation #119 02/12/21 11/25/22 gram/dose oral powder (Miralax) grams pantoprazole 20 mg tablet,delayed 20 mg PO DAILY #90 tab-caps 02/03/22 11/25/22 release lidocaine 5 % topical cream 1 applic topical .BID-QID PRN pain 03/25/22 11/25/22 #45 grams celecoxib 100 mg capsule 100 mg PO BID #60 caps 05/24/22 11/25/22 atorvastatin 10 mg tablet 10 mg PO DAILY #90 tab-caps 11/18/22 11/25/22 Previous Rx's Medication Instructions Recorded blood sugar diagnostic (Blood #100 ea 06/20/19 Glucose Test strips) blood-glucose meter #1 ea 06/20/19 lancets #100 ea 06/20/19 minoxidil 5 % topical solution 1 ml topical BID #120 mL 01/30/20 meclizine 25 mg tablet 25 mg PO TID PRN dizziness #30 tabs 02/21/20 acetaminophen 500 mg tablet 500 - 1,000 mg PO TID PRN pain 12/05/20 #270 tab-caps triamcinolone acetonide 0.1 % 1 applic topical BID #15 grams 12/24/20 topical cream polyethylene glycol 3350 17 17 g PO DAILY constipation #119 02/12/21 gram/dose oral powder (Miralax) grams pantoprazole 20 mg tablet,delayed 20 mg PO DAILY #90 tab-caps 02/03/22 release lidocaine 5 % topical cream 1 applic topical .BID-QID PRN pain 03/25/22 #45 grams celecoxib 100 mg capsule 100 mg PO BID #60 caps 05/24/22 atorvastatin 10 mg tablet 10 mg PO DAILY #90 tab-caps 11/18/22 Allergies Allergy/AdvReac Type Severity Reaction Status Date / Time egg AdvReac Mild SKIN RASH Verified 11/25/22 21:03 tomato AdvReac Mild SKIN RASH Verified 11/25/22 21:03 POTATO AdvReac Mild SKIN RASH Uncoded 11/25/22 21:03 General Stated Complaint: GenMedical NELI: 3 Review of Systems All systems reviewed & are unremarkable except as noted in HPI and below Constitutional Constitutional: Reports as per HPI, Denies chills and Denies fever(s) Eyes Eyes: Denies blurry vision ENT Ears, Nose, Mouth, and Throat: Denies dizziness, Denies sore throat and Denies throat swelling Cardiovascular Cardiovascular: Denies chest pain and Denies dyspnea Respiratory Respiratory: Denies cough and Denies dyspnea Gastrointestinal Gastrointestinal: Denies abdominal pain, Denies diarrhea and Denies vomiting Genitourinary Genitourinary: Denies hematuria and Denies dysuria Musculoskeletal Musculoskeletal: Denies back pain and Denies numbness Comments: left hand, right knee, bilateral hip pain Integumentary/Breasts Skin/Breast: Denies lesions and Denies rash Neurologic Neurologic: Denies dizziness, Denies localized weakness and Denies numbness Allergic/Immunologic Allergic/Immunologic: Denies throat swelling [facility] All Active Problems (Updated 11/25/22 @ 23:16 by Philly Abdullahi DO) Fall at home (Acute) Closed head injury without loss of consciousness (Acute) Abrasion of face (Acute) Contusion of left hand (Acute) Injury of right patella (Acute) Chronic pain of both knees (Acute) Telephone specialized language instructor service required (Acute) CKD (chronic kidney disease) (Chronic) Osteoarthritis (Chronic) GERD (gastroesophageal reflux disease) (Chronic) Frequent falls (Acute) IFG (impaired fasting glucose) (Chronic) Cyst of breast, right, solitary (Chronic 03/2018) Anxiety and depression (Chronic) Telogen effluvium (Chronic) [facility] [place] Partial symptomatic epilepsy with complex partial seizures, intractable, without status epilepticus (Chronic) [facility] [place] Implanted stimulator 2008 Microscopic hematuria (Chronic 03/25/17) 02/2017 urology consultation: negative cystoscopy with retrograde pyelogram; Recommend annual UAs with repeat workup in 3-5 years if persistent; 10/2022 UA neg for blood Memory loss (Chronic) neurology clinic note dated 09/28/17 Low back pain (Acute 07/10/14) [place] [facility] [place] DJD, mild anterolithesis L4 against L5 Irritable bowel syndrome (Chronic 03/23/12) Dr. Iglesias [place] [facility] [place] Hyperlipidemia (Chronic 03/23/12) 03/2019 labs: 10-year ASCVD risk = ~14.5% --> started on moderate intensity statin therapy Headache (Acute 03/23/12) Dyspepsia (Acute 05/03/14) [place] [facility] [place] 03/2009 Hpylori treated and resolved Chronic constipation (Chronic 05/27/17) [facility] [place] Medical History (Updated 11/25/22 @ 23:16 by Philly Abdullahi DO) Chest pain, unspecified (05/09/13) nl MPI 05/07/13 EF 71%; later thought to be 2/2 GERD Colon cancer Liver function abnormality (05/03/14) [place] [facility] [place], lab w/u; ? from antiseizure meds Renal cyst 08/20/2020 US: simple cyst Sebaceous cyst Tubular adenoma of colon (07/12/17) descending colon Surgical History Colectomy (~1994) For colon CA Social History Smoking/Tobacco Use Status: Never Smoking risk assessment performed?: Yes Alcohol Intake: never Drug use: Never Substance use type: does not use Caregiver/Support person: No Household members: spouse Communication Needs: Language Barriers Current gender identity: female What type of physical activity do you participate in: none Do you feel safe at home: Yes Do you feel safe in your relationship?: Yes Exam Const General: cooperative, healthy appearing and no acute distress [facility] Head images: 1. Scattered abrasions and ecchymosis with tenderness to palpation. Tenderness extends on the left side of the head parietal aspect but no obvious hematoma noted. Ears: hearing grossly normal bilaterally, external ears normal and TM's normal bilaterally General nose exam: external nose normal Face and sinus: normal facial exam Throat: posterior oropharynx normal Eyes General: appearance normal, both eyes and all related structures Pupils: PERRL EOM: EOM intact bilaterally Neck Neck: normal visual inspection and No submandibular swelling Lymphatic: no lymphadenopathy noted Chest Chest: normal inspection of the chest, normal palpation of entire chest wall and no tenderness Resp Effort & Inspection: normal respiratory effort and able to speak in complete sentences Auscultation: clear to auscultation bilaterally Cardio Rate: regular rate Rhythm: regular rhythm GI Inspection: normal to inspection Palpation: soft, not firm, not rigid and nontender Auscultation: normal bowel sounds Back/Spine/Pelvis Cervical Spine: collar present and No cervical spinal tenderness Thoracic/Lumbar Spine: thoracic and lumbar spine normal to inspection, No thoracic spinal tenderness and No lumbar spinal tenderness Other: Pain in bilateral hips with range of motion but no obvious deformity or limitation of range of motion. No lower extremity shortening or external rotation. Skin General skin exam: no rashes or lesions noted Neuro General: patient alert, patient awake and patient oriented x3 Cognition: normal cognition Speech: speech normal Motor: muscle tone normal throughout Sensory Exam: no sensory deficits noted Extrem Hand/finger images: 1. Ecchymosis and tenderness mostly overlying the second and third metacarpal bones and MCP joints. Superficial scattered abrasions. No obvious bony deformity. Other: Right medial knee with pain with range of motion and tenderness to palpation. No obvious deformity noted. No ecchymosis, erythema or significant edema noted. Remainder of bilateral upper and lower extremities normal range of motion without significant pain. Psych Appearance: grossly normal Mental Status: mental status grossly normal Speech and Movement: speech and movement normal Affect: normal affect Procedures Orthopedic Splinting/Casting Injury #1: Side: right Lower Extremity Injury Location: knee Lower Extremity Immobilizer: knee immobilizer Other Orthopedic Equipment: crutches
[2022-11-25 20:55] VITALS: BP 146/74; PULSE 90; RESP 16; TEMP 36.5; O2SAT 97
--- NOTE | 2022-11-25 21:15 | DI.RAD_ITS ---
Exam(s) XR KNEE RT 4V AP,LAT,CAM,PAT EXAM: XR KNEE RT 4V AP,LAT,CAM,PAT CLINICAL HISTORY: s/p fall, r/o acute fracture. TECHNIQUE: 2D digital imaging was performed. Three views. COMPARISON: CR RIGHT KNEE LIMITED 1 OR 2 VIEW from 07/18/2014 CR,XR XR KNEE RT 3V AP,LAT,CAM from 09/11/2020 FINDINGS: The lateral view is suboptimally positioned. BONES: There is a lucency seen through the superior pole of the patella which was present on the prev ious exam and could represent an a nonunited fracture. No bony destructive lesion is seen. JOINTS: There is severe degenerative changes of the lateral femoral tibial joint is well as lateral p atellofemoral joint. There is a question of a small joint effusion SOFT TISSUE: Normal. IMPRESSION: Stable appearance degenerative changes. Stable appearance of lucency through the superior pole of th e patella. No acute fracture. DATA REPOSITORY: RADIATION DOSE DELIVERED:
--- NOTE | 2022-11-25 21:15 | DI.CT_ITS ---
Exam(s) CT HEAD CERV SPINE FACIAL WO EXAM: CT HEAD CERV SPINE FACIAL WO CLINICAL HISTORY: s/p fall,r/o intracranial inj, facial inj, cerv fx. TECHNIQUE: Imaging Protocol: Axial computed tomography images with coronal and sagittal reformatted images were created and reviewed COMPARISON: CT CT HEAD WO from 01/27/2022 FINDINGS: Head CT Ventricles and Extra axial spaces: Normal in size and morphology for the patient's age. Hemorrhage: None. Cerebral parenchyma: Mild atrophy. Again noted are multiple scattered bilateral calcifications in [place] th cerebral hemispheres. Midline shift: None. Brainstem/Cerebellum: Normal. Calvarium: Normal. Visualized Paranasal sinuses/Mastoids: Clear. Soft tissues: Left frontal and posterior scalp hematomas. Cervical Spine CT BONES: Vertebral body heights are maintained. Alignment is normal. There is no evidence of acute frac ture. Degenerative disc changes are seen greatest at C6-7. advanced facet degenerative changes are seen t hroughout. . SOFT TISSUES: No paraspinal hematoma. The airway appears intact. No pneumothorax is seen at the lung apices. Facial CT: No evidence of fracture. Minimal mucosal thickening floor of the left maxillary sinus. Globes and o rbits intact. IMPRESSION: Head CT: Frontal and posterior scalp hematomas. No acute intracranial abnormality. C-spine CT: Degenerative changes, no acute abnormality. Facial CT: No evidence of fracture. RADIATION DOSE DELIVERED: 2,041.31mGy.cm Total DLP DATA REPOSITORY: All CT scans at this facility are submitted to the National Radiology Data Registry (NRDR) Dose Index Registry (DIR) with the [employer] (ACR). RADIATION OPTIMIZATION: All CT scans at this facility use at least one of these dose optimization te chniques: automated exposure control; mA and/or kV adjustment per patient size (includes targeted exa ms where dose is matched to clinical indication); or iterative reconstruction.
--- NOTE | 2022-11-25 21:15 | DI.RAD_ITS ---
Exam(s) XR HAND LT COMPLETE EXAM: XR HAND LT COMPLETE CLINICAL HISTORY: s/p fall, r/o acute fracture. TECHNIQUE: 2D digital imaging was performed. Three views. COMPARISON: No exams were available for comparison FINDINGS: BONES: No acute fracture is present. No bony destructive lesion is seen. JOINTS: No dislocation present. Degenerative changes of the interphalangeal joints. SOFT TISSUE: Some swelling over the region of the metacarpal heads. No foreign body. IMPRESSION: No acute abnormality. DATA REPOSITORY: RADIATION DOSE DELIVERED:
--- NOTE | 2022-11-25 21:15 | DI.RAD_ITS ---
Exam(s) XR PELVIS AP EXAM: XR PELVIS AP CLINICAL HISTORY: s/p fall, r/o fracture b/l hips. TECHNIQUE: 2D digital imaging was performed. COMPARISON: No exams were available for comparison FINDINGS: BONES: The sacrum is obscured by overlying stool and bowel gas. No acute fracture is present. No bon y destructive lesion is seen. JOINTS: No dislocation present. No joint space narrowing is present. Mild bilateral acetabular spurri ng. Enthesophytes at the iliac wings and greater trochanters. Degenerative changes of the lower lum bar spine. SOFT TISSUE: Normal. IMPRESSION: No acute abnormality. DATA REPOSITORY: RADIATION DOSE DELIVERED:
[2022-11-25] MEDS: Acetaminophen 500 MG TAB 1000 MG PO (21:30)
--- NOTE | 2022-11-25 22:30 | DI.RAD_ITS ---
Exam(s) XR KNEE LT 4V AP,LAT,CAM,PAT EXAM: XR KNEE LT 4V AP,LAT,CAM,PAT CLINICAL HISTORY: s/p fall, r/o acute fx. TECHNIQUE: 2D digital imaging was performed. Three views. COMPARISON: CR,XR XR KNEE RT 4V AP,LAT,CAM,PAT from 11/25/2022 FINDINGS: BONES: No acute fracture is present. No bony destructive lesion is seen. JOINTS: No joint effusion is seen. Degenerative changes, advanced at the patellofemoral and medial femoral tibial joint. SOFT TISSUE: Normal. IMPRESSION: Degenerative changes. No acute abnormality. DATA REPOSITORY: RADIATION DOSE DELIVERED:
--- NOTE | 2022-11-25 22:49 | DI.VRAD_ITS ---
PROCEDURE INFORMATION: Exam: XR Right Knee Exam date and time: 11/25/2022 22:27 Age: 72 years old Clinical indication: Injury or trauma; Fall; Blunt trauma; Lower leg; Right; Additional info: S/P fall TECHNIQUE: Imaging protocol: Radiologic exam of the Right knee. Views: 4 or more views. COMPARISON: No relevant prior studies available. FINDINGS: Bones/joints: Acute fracture of the upper pole of the patella without significant distraction. Chronic moderate underlying degenerative changes in the knee. No dislocation. Soft tissues: Soft tissue swelling surrounding the fracture site. IMPRESSION: Acute fracture of the upper pole of the patella without significant distraction. Dictated and Authenticated by: Maame Espinoza MD. Ordering:JESUS Fraga MD
--- NOTE | 2022-11-25 22:50 | DI.VRAD_ITS ---
PROCEDURE INFORMATION: Exam: CT Head Without Contrast Exam date and time: 11/25/2022 10:16 PM Age: 72 years old Clinical indication: Injury or trauma; Other: S/P fall, R/O intracranial inj, facial inj, cerv FX TECHNIQUE: Imaging protocol: Computed tomography of the head without contrast. COMPARISON: CT HEAD WO 01/27/2022 7:31 PM FINDINGS: Brain: There are again seen numerous parenchymal calcifications of the brain. Generalized cerebral and cerebellar volume loss with chronic small vessel ischemic changes stable. No CT evidence of acute transcortical infarction. No acute intracranial hemorrhage, midline shift, or herniation. Cerebral ventricles: No ventriculomegaly. Paranasal sinuses: Visualized sinuses are unremarkable. No fluid levels. Mastoid air cells: Visualized mastoid air cells are well aerated. Bones/joints: Unremarkable. No acute fracture. Soft tissues: Left frontal and posterior parietal scalp hematomas. Vasculature: Dense calcifications of the intracranial internal carotid and vertebral arteries. IMPRESSION: 1. Left frontal and posterior parietal scalp hematomas without underlying calvarial fracture or acute intracranial hemorrhage. 2. 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 Other remote insult could have a similar appearance. PROCEDURE INFORMATION: Exam: CT Maxillofacial Without Contrast Exam date and time: 11/25/2022 10:16 PM Age: 72 years old Clinical indication: Injury or trauma; Other: S/P fall, R/O intracranial inj, facial inj, cerv FX TECHNIQUE: Imaging protocol: Computed tomography of the face without contrast. COMPARISON: CT HEAD WO 01/27/2022 7:31 PM FINDINGS: Orbital cavities: Orbits are normal. Globes are unremarkable. Bones/joints: No acute fracture. Paranasal sinuses: Normal. No air-fluid levels. Soft tissues: Unremarkable. IMPRESSION: No acute findings. PROCEDURE INFORMATION: Exam: CT Cervical Spine Without Contrast Exam date and time: 11/25/2022 10:16 PM Age: 72 years old Clinical indication: Injury or trauma; Other: S/P fall, R/O intracranial inj, facial inj, cerv FX TECHNIQUE: Imaging protocol: Computed tomography of the cervical spine without contrast. COMPARISON: CR XR SHUNT SERIES 01/27/2022 7:41 PM FINDINGS: Tubes, catheters and devices: Left vagal stimulator is incompletely evaluated. Bones/joints: Grade 1 anterolisthesis of C3, C4, C5, and C7 appear to be chronic and degenerative in nature. No acute cervical spine fracture. No aggressive osseous lesion. No gross high-grade spinal canal stenosis is appreciated. Lungs: Lung apices are normal. Vasculature: Calcifications at the carotid bifurcations. Soft tissues: Unremarkable. IMPRESSION: Degenerative changes of the cervical spine without demonstration of acute fracture or subluxation. Dictated and Authenticated by: Tushar Penaloza MD. Ordering:JESUS Fraga MD
--- NOTE | 2022-11-25 22:50 | DI.VRAD_ITS ---
PROCEDURE INFORMATION: Exam: XR Pelvis Exam date and time: 11/25/2022 22:25 Age: 72 years old Clinical indication: Other: S/P fall, R/O fracture b/l hips TECHNIQUE: Imaging protocol: Radiologic exam of the pelvis. Views: 1 or 2 view. COMPARISON: CT ABDOMEN PELVIS WO/W 03/18/2022 14:03 FINDINGS: Bones/joints: No acute fracture or subluxation. Soft tissues: Unremarkable. IMPRESSION: No acute bony pathology. Dictated and Authenticated by: Maame Espinoza MD. Ordering:JESUS Fraga MD
--- NOTE | 2022-11-25 22:51 | DI.VRAD_ITS ---
PROCEDURE INFORMATION: Exam: XR Left Hand Exam date and time: 11/25/2022 22:35 Age: 72 years old Clinical indication: Injury or trauma; Fall; Blunt trauma (contusions or hematomas); Hand; Left; Additional info: S/P fall TECHNIQUE: Imaging protocol: Radiologic exam of the Left hand. Views: 3 or more views. COMPARISON: No relevant prior studies available. FINDINGS: Bones/joints: No acute fracture or subluxation. MCP and interphalangeal degenerative changes. Soft tissues: Unremarkable. IMPRESSION: No acute bony pathology. Dictated and Authenticated by: Maame Espinoza MD. Ordering:JESUS Fraga MD
--- NOTE | 2022-11-25 22:51 | DI.VRAD_ITS ---
PROCEDURE INFORMATION: Exam: XR Left Knee Exam date and time: 11/25/2022 22:39 Age: 72 years old Clinical indication: Injury or trauma; Other: S/P fall, R/O acute FX; Additional info: S/P fall, R/O fracture TECHNIQUE: Imaging protocol: Radiologic exam of the Left knee. Views: 4 or more views. COMPARISON: No relevant prior studies available. FINDINGS: Bones/joints: Degenerative changes are most pronounced in the medial compartment. No acute fracture or subluxation. Soft tissues: No significant joint effusion. Benign appearing distal quadriceps enthesophyte. IMPRESSION: No acute bony pathology. Dictated and Authenticated by: Maame Espinoza MD. Ordering:JESUS Fraga MD
[2022-11-25 23:54] VITALS: PULSE 76; RESP 18; TEMP 36.3; O2SAT 99
--- NOTE | 2022-11-29 13:40 | NUR.NOTE ---
Nursing Note: Accessed chart for [facility] billing purposes.
== END 2022-11-25 23:57 | disposition home or self-care (01) ==
PROVIDERS: Emergency Provider Physician Assistant; PCP Nurse Practitioner Family
DX: S60.222A Contusion of left hand, initial encounter (principal); S80.01XA Contusion of right knee, initial encounter; S00.81XA Abrasion of other part of head, initial encounter; G40.909 Epilepsy, unspecified, not intractable, without status epilepticus; W01.198A Fall on same level from slipping, tripping and stumbling with subsequent striking against other object, initial encounter; Y92.009 Unspecified place in unspecified non-institutional (private) residence as the place of occurrence of the external cause
CPT/HCPCS: 29505; 99284; 70450; 70486; 72125; 72170; 73130; 73564; 99282

== ENCOUNTER → 2022-12-01 11:17 | Outpatient (BNVA) | payer MEDICARE, SELFPAY | PROVIDERS: PCP Nurse Practitioner Family; Referring Provider Nurse Practitioner Family; Visit Provider Physical Therapy Assistant | DX: L72.3 Sebaceous cyst (principal) | CPT/HCPCS: 99213 ==

== ENCOUNTER → 2022-12-13 09:53 | Outpatient (BNVA) | payer MEDICARE, SELFPAY | PROVIDERS: PCP Nurse Practitioner Family; Referring Provider Nurse Practitioner Family; Visit Provider Physical Therapy Assistant | DX: L72.3 Sebaceous cyst (principal); L72.0 Epidermal cyst; L90.5 Scar conditions and fibrosis of skin | CPT/HCPCS: 11402 ==

== ENCOUNTER 2022-12-13 10:38 | Outpatient (REF) | payer MEDICARE, SELFPAY ==
--- NOTE | 2022-12-13 10:35 | SKI_PTH ---
PATIENT: Alba Minor LOC: [facility] U#:[id number] AGE/SX: 72/F ROOM: RE12/13/[address]: DEANNE Cruz : 1950 BED: DIS: 12/13/2022 SPEC #: [id number] RECD: 12/13/22 12:41 STATUS: DEANN REQ #: [id number] ISRA: 12/13/22 10:[address]: Harmony Plata DEPT: Surgical Specimen RECD BY: Mary Tracy ENTERED: 12/13/22 12:42 SP TYPE: NAEEM STACK DR: Liz Hall APRN Tissues: 1 - SKIN BIOPSY(SHAVE/PUNCH) Procedures: SKIN LEVEL 4 Comments: [id number]
== END 2022-12-13 10:39 | disposition home or self-care (01) ==
LOC: LBN 10:38
PROVIDERS: PCP Nurse Practitioner Family; Visit Provider Physical Therapy Assistant
DX: L72.0 Epidermal cyst (principal); L91.0 Hypertrophic scar
CPT/HCPCS: 88305

== ENCOUNTER → 2023-04-21 14:16 | Outpatient (BNVA) | payer MEDICARE, SELFPAY | PROVIDERS: PCP Nurse Practitioner Family; Referring Provider Nurse Practitioner Family; Visit Provider Physical Therapy Assistant | DX: L72.3 Sebaceous cyst (principal); Z48.02 Encounter for removal of sutures | CPT/HCPCS: 99213 ==

== ENCOUNTER → 2023-04-28 09:45 | Outpatient (BNVA) | payer MEDICARE, SELFPAY | PROVIDERS: PCP Nurse Practitioner Family; Referring Provider Nurse Practitioner Family; Visit Provider Physical Therapy Assistant | DX: Z48.817 Encounter for surgical aftercare following surgery on the skin and subcutaneous tissue (principal) ==

== ENCOUNTER 2023-05-05 02:08 | Outpatient (CLI) | payer MEDICARE, SELFPAY ==
--- NOTE | 2023-05-05 08:30 | DI.DEXA_ITS ---
Exam(s) XR DEXA BONE DENSITY W/WO BALDEV EXAM: XR DEXA BONE DENSITY W/WO BALDEV CLINICAL HISTORY: screening for osteoporosis in postmenopausal woman,z78.0 TECHNIQUE: COMPARISON: No exams were available for comparison FINDINGS: Lateral Spine Image: Unremarkable. No compression deformities identified. Left hip: Total T-Score: -0.4 Total Z-Score: 1.3 T- and Z-scores: Within normal limits. There is osteopenia in the femoral neck with a T-score of -1.3 . Lumbar Spine: Total T-Score: 0.2 Total Z-Score: 2.6 T- and Z-scores: Within normal limits. IMPRESSION: No evidence of osteoporosis.
--- NOTE | 2023-05-05 15:35 | DI.MAMMO_ITS ---
Exam(s) MAMMO SCREENING EXAM: MAMMO SCREENING CLINICAL HISTORY: screening,z12.39 TECHNIQUE: Bilateral full field digital CC and MLO mammographic images were obtained with 3D tomosyn thesis and utilizing computer aided detection (CAD). COMPARISON: Available for comparison. FINDINGS: Masses/Architectural Distortion: There is again seen a nodule in the inferior aspect of the right cherise ast which is unchanged. No new or suspicious nodules are seen. No evidence of architectural distort ion is seen. Microcalcifications: No suspicious pleomorphic-type are seen. Skin Thickening/Nipple Retraction: None. IMPRESSION: 1. No significant interval change with no specific features of malignancy noted. 2. Unless there is more urgent need, screening mammography is recommended, as per [employer] guidelines. BI-RADS Category 2 - Benign Findings Breast Density - Category C - Heterogeneously dense Breast density category C or D implies that the patient has dense breast tissue. Dense breast tissue is very common and is not abnormal but dense breast tissue can make it harder to find cancer on a ma mmogram. Also, dense breast tissue may increase their breast cancer risk. This information about the result of the mammogram report was provided to the patient to raise their awareness. Use this report when you speak with the patient about their risks for breast cancer, which includes their family hist ory. At that time, you may recommend for more screening tests (Ultrasound or MRI) as they might be us eful based on their risk. A negative radiographic report should not delay biopsy if a dominant or clinically suspicious mass is present. Up to ten percent of cancers are not identified on mammography. A negative report may reinforce clinical impression. Adenosis and dense breasts may obscure an underlying neoplasm. False positive reports average 6 to 10%. Patient will receive a letter notifying them of these results.
== END 2023-05-05 02:28 ==
LOC: DI 02:10
PROVIDERS: PCP Nurse Practitioner Family; Visit Provider Nurse Practitioner Family
DX: Z13.820 Encounter for screening for osteoporosis (principal); Z78.0 Asymptomatic menopausal state; Z12.31 Encounter for screening mammogram for malignant neoplasm of breast
CPT/HCPCS: 77063; 77067; 77080

== ENCOUNTER → 2023-09-22 02:39 | Outpatient (CLI) | payer MEDICARE, SELFPAY ==
--- NOTE | 2023-09-22 07:36 | DI.CT_ITS ---
Exam(s) CT ABDOMEN PELVIS W EXAM: CT ABDOMEN PELVIS W CLINICAL HISTORY: abd pain,H/O COLON CA,K75.9,R10.9. TECHNIQUE: Imaging Protocol: Axial computed tomography images with coronal and sagittal reformatted images were created and reviewed CONTRAST MATERIAL: Intravenous: Omnipaque 350 Contrast volume:100 ml Oral: yes / COMPARISON: CT CT ABDOMEN PELVIS WO/W from 03/18/2022 FINDINGS: ABDOMEN and PELVIS: Lung Bases: Normal where visualized. Liver: Normal density. No measurable mass. Gallbladder and biliary tract: No radiodense calculus or dilation. Pancreas: Normal density. No abnormal calcifications or inflammatory process. No evidence of mass. Spleen: Normal. Kidneys: Normal size, contour and axis. No radiodense stones. No obstructive uropathy. No suspicious masses seen. Adrenal glands: No masses seen. Vasculature: Abdominal aorta non-dilated. Soft tissues: Fatty containing hernia left lower quadrant abdominal wall, unchanged. Bladder: No gross wall thickening. No calculi.No focal mass. Bowel: Sigmoid anastomosis. Large quantity of stool in the sigmoid. Moderate quantity of stool else where. Little stool in the rectum.. No visible mass. No obstruction. No bowel wall thickening. A ppendix not visualized.. Peritoneal cavity: No ascites. No focal collection or mesenteric inflammatory response. Bones: Unremarkable degenerative changes in the lower thoracic and lumbar spine. Reproductive organs: Thickening of the endometrial stripe to 12 millimeters. Lymph nodes: Unremarkable. IMPRESSION:: Sigmoid anastomosis. Large quantity of stool seen in the region of the sigmoid. No vi sible mass. Thickening of the endometrial stripe. Pelvic ultrasound recommended for further evaluation. RADIATION DOSE DELIVERED: Total DLP DATA REPOSITORY: All CT scans at this facility are submitted to the National Radiology Data Registry (NRDR) Dose Index Registry (DIR) with the [employer] (ACR). RADIATION OPTIMIZATION: All CT scans at this facility use at least one of these dose optimization te chniques: automated exposure control; mA and/or kV adjustment per patient size (includes targeted exa ms where dose is matched to clinical indication); or iterative reconstruction.
[2023-09-22 09:58] LABS: Abs Immature Grans 0.03 10^3/uL (0.0-0.06); Absolute Basophil Count 0.07 10^3/uL (0.0-0.2); Absolute Eosinophil Count 0.06 10^3/uL (0.0-0.7); Absolute Lymphocyte Count 1.88 10^3/uL (1.2-3.4); Absolute Monocyte Count 0.51 10^3/uL (0.1-0.8); Absolute Neutrophil Count 6.18 10^3/uL (1.2-6.7); Basophils % 0.8; Eosinophils % 0.7; HCT 38.6 % (36.0-46.0); HGB 12.2 g/dL (11.2-15.7); Immature Grans % 0.3; Lymphocytes % 21.5; MCH 27.8 pg (27.0-33.0); MCHC 31.6 % (32.0-36.0); MCV 88 fL (80-95); MPV 9.1 fL (8.0-11.0); Monocytes % 5.8; Neutrophils % 70.9; Platelet Count 277 10^3/uL (130-400); RBC 4.39 10^6/uL (3.93-5.22); RDW 13.5 % (11.7-14.6); RDW-SD 43.3 fL; WBC 8.73 10^3/uL (4.4-10.8)
[2023-09-22] MEDS: Barium Sulfate 2% W/V-Berry Smoothie 450 ML BTL 900 ML PO (10:04)
[2023-09-22 10:16] LABS: ALT 11 U/L (14-59); AST 11 U/L (15-37); Albumin 3.7 g/dL (3.4-5.0); Alkaline Phosphatase 99 U/L (46-116); Anion Gap 8.3 mmol/L (3-11); BUN 26 mg/dL (7-18); Bilirubin, Total 0.4 mg/dL (0.2-1.0); CO2 25.7 mmol/L (21.0-32.0); CREATININE 1.1 mg/dL (0.55-1.02); Calcium 9.3 mg/dL (8.5-10.1); Chloride 105 mmol/L (98-107); Glucose 111 mg/dL (74-106); Potassium 3.9 mmol/L (3.5-5.1); Sodium 139 mmol/L (136-145); Total Protein 7.6 g/dL (6.4-8.2)
[2023-09-22 10:56] LABS: Vitamin B12 638 pg/mL (193-986)
[2023-09-22] MEDS: Omnipaque 350 MG/ML 100 ML BTL IJ (11:50)
[2023-09-22] MEDS: Normal Saline - Diluent 50 ML VIAL IJ (11:51)
== END ==
PROVIDERS: Emergency Medicine; PCP Nurse Practitioner Family; Visit Provider Family Medicine
DX: R10.9 Unspecified abdominal pain (principal); K59.09 Other constipation; R41.3 Other amnesia; K75.9 Inflammatory liver disease, unspecified
CPT/HCPCS: 36415; 80053; 74177; 82607; 85025; J3490

== ENCOUNTER → 2023-10-13 03:23 | Outpatient (CLI) | payer MEDICARE, SELFPAY ==
--- NOTE | 2023-10-13 08:00 | DI.US_ITS ---
Exam(s) US PELVIS TRANSVAGINAL EXAM: US PELVIS TRANSVAGINAL CLINICAL HISTORY: increased endometrial stripe,F/U ABNL IMAGING,R93.89 TECHNIQUE: Transabdominal and transvaginal imaging was performed using standard protocol. COMPARISON: CT CT ABDOMEN PELVIS W from 09/22/2023 FINDINGS: Exam limited by lack of bladder distention and retroverted uterus as well as patient body habitus.. UTERUS: Retroverted. 5.5 x 3.7 x 3.9 cm Endometrium: Thickened and heterogeneous 12 millimeters maximal thickness. Trace fluid. Myometrium: 2.2 centimeter maximal dimension posterior fibroid. Cervix: Unremarkable. OVARIES: Not visualized. DOPPLER: Color: Symmetric and uniform flow to both ovaries. No hyperemia. CUL-DE-SAC: Free fluid: None. IMPRESSION: 1. Abnormally thickened, heterogeneous endometrium. Biopsy should be considered. 2. Ovaries were not visualized. DATA REPOSITORY:
== END ==
PROVIDERS: PCP Nurse Practitioner Family; Visit Provider Nurse Practitioner
DX: R93.89 Abnormal findings on diagnostic imaging of other specified body structures (principal)
CPT/HCPCS: 76830; 76856

== ENCOUNTER 2023-11-10 16:24 | Outpatient (REF) | payer MEDICARE, SELFPAY ==
--- NOTE | 2023-11-10 14:00 | ENDOMET_PTH ---
PATIENT: Alba Minor LOC: [facility] U#:[id number] AGE/SX: 73/F ROOM: RE11/10/[address]: Marry Shen DO : 1950 BED: DIS: 11/10/2023 SPEC #: [id number] RECD: 11/10/23 18:14 STATUS: DEANN REQ #: [id number] ISRA: 11/10/23 14:[address]: Marry Shen DEPT: Surgical Specimen RECD BY: Mary Tracy ENTERED: 11/10/23 18:15 SP TYPE: Endomet OTHR DR: Liz Hall APRN Tissues: 1 - ENDOMETRIUM BX/CURRETTE Procedures: GROSS AND MICRO LEVEL 4 Comments: [id number]
== END 2023-11-10 16:25 | disposition home or self-care (01) ==
LOC: LBN 16:24
PROVIDERS: PCP Nurse Practitioner Family; Visit Provider Obstetrics & Gynecology
DX: N95.0 Postmenopausal bleeding (principal); N85.8 Other specified noninflammatory disorders of uterus; Z85.038 Personal history of other malignant neoplasm of large intestine; R93.89 Abnormal findings on diagnostic imaging of other specified body structures
CPT/HCPCS: 88305

== ENCOUNTER 2023-12-27 12:04 | Outpatient (REF) | payer MEDICARE, SELFPAY | END 2023-12-27 12:05 | disposition home or self-care (01) | LOC: LBN 12:04 | PROVIDERS: PCP Nurse Practitioner; Referring Provider Nurse Practitioner; Visit Provider Nurse Practitioner | DX: R82.998 Other abnormal findings in urine (principal); R31.9 Hematuria, unspecified | CPT/HCPCS: 87086 ==

== ENCOUNTER 2024-04-16 10:35 | Outpatient (CLI) | payer MEDICARE, SELFPAY ==
--- NOTE | 2024-04-16 10:30 | RT.EKG_ITS ---
APPROVED REPORT Exam: Resting ECG Reason for Exam: pre-op testing Patient Location: O HR:75 bpm ECG Measurements Heart Rate 75 AXIS OK 164 P 67 QRSd 90 QRS -20 QT 375 T 41 QTc 419 Conclusion Sinus rhythm...normal P axis, V-rate 50- 99 Abnormal R-wave progression, early transition...QRS area>0 in V2
== END 2024-04-16 10:36 | disposition home or self-care (01) ==
LOC: DI.KIM 10:36
PROVIDERS: PCP Nurse Practitioner; Visit Provider Nurse Practitioner
DX: Z01.818 Encounter for other preprocedural examination (principal)
CPT/HCPCS: 93010

== ENCOUNTER 2024-05-09 06:16 | Day surgery (SDC) | payer MEDICARE, SELFPAY ==
[2024-05-09] VITALS (22 sets, daily range): BP systolic 117–199; BP diastolic 56–107; PULSE 67–87; RESP 9–21; TEMP 36.1–36.7; O2SAT 93–99; BMI 29.5
--- NOTE | 2024-05-09 07:08 | ANES.PREOP_ITS ---
General Info Date of Service Date Performed: 05/09/24 Height: 5 ft 1.5 in Weight: 72 kg Body Mass Index (BMI): 29.5 Surgical Procedure: Operation Date: 05/09/24 07:40 Proposed Procedure Side Surgeon p Dilation & Curettage with Hysteroscopy Marry Shen DO [facility] Allergies and Home Medications Home Medication Medication Instructions Recorded Smooth Move Tea 1 PO TID 07/29/17 blood sugar diagnostic (Blood #100 ea 06/20/19 Glucose Test strips) blood-glucose meter #1 ea 06/20/19 lancets #100 ea 06/20/19 divalproex 250 mg tablet,delayed 250 mg PO DAILY 10/23/19 release lamotrigine 100 mg tablet 100 mg PO BID 09/11/20 (Lamictal) clonazepam 0.5 mg tablet See Rx Instructions PO BID 12/30/20 atorvastatin 10 mg tablet 10 mg PO DAILY #90 tab-caps 11/18/22 acetaminophen 500 mg tablet 1,000 mg (2 x 500 mg) PO TID pain 12/01/22 #540 tab-caps Current Visit Medications: Current Medications Generic Name Dose Route Start Last Admin Trade Name Freq PRN Reason Stop Dose Admin Sodium Chloride 1,000 mls @ 100 mls/hr 05/09/24 06:00 Saline 1000ml Bag IV 05/09/24 23:59 INFUSION KARIS IV Miscellaneous Supplies 1 each 05/09/24 06:00 Iv Access IV 05/09/24 23:59 DIRECTED KARIS Sodium Chloride 0 ml 05/09/24 06:00 Normal Saline Flush 10 Ml Syr IV 05/09/24 23:59 PRN PRN Sodium Chloride 0 ml 05/09/24 06:00 Normal Saline 10 Ml Vial IJ 05/09/24 23:59 DIRECTED PRN Sterile Water 0 ml 05/09/24 06:00 Water,Injection,Sterile 10 Ml Vial IJ 05/09/24 23:59 DIRECTED PRN PFSH Active Problems Active Problems: Problem Status Onset Code Thickened endometrium R93.89 Postmenopausal bleeding N95.0 Abdominal pain R10.9 Chronic pain of both knees M25.561, M25.562, G89.29 Telephone language pathologist service required Z78.9 CKD (chronic kidney disease) N18.9 Osteoarthritis M19.90 GERD (gastroesophageal reflux disease) Frequent falls R29.6 IFG (impaired fasting glucose) R73.01 Anxiety and depression 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 from antiseizure meds Chest pain, unspecified (05/09/13) nl MPI 05/07/13 EF 71%; later thought to be 2/2 GERD Colon cancer Medical History Comments:: 05/09/24: pt has an implant for epilepsy in [place]. Last changed 6 years ago. Pt does not know the name of the implant. Pt reports she had an epileptic attack 3 months ago and she fell on the floor. Pt's face was bruised as a result. Pt reports she had a sensation of having an epileptic seizure 4 days ago (05/05/24) Surgical History Surgical History Colectomy (~1994) For colon CA Tobacco Smoking/Tobacco Use Status: Never Alcohol Alcohol Intake: never Substance Use Substance use: Never Substance use type: does not use Prental History History 2 2 Para 2 Hx # Term Pregnancies 2 Multiple births Hx # Pregnancies Ectopic pregnancies AB induced Hx Number of Living Children 2 AB spontaneous Vital Signs and Lab Results Vital Signs Most Recent Vital Signs in EMR: Most Recent Vital Signs Temp Pulse Resp BP Pulse Ox 36.7 C 79 18 154/64 H 96 05/09/24 06:42 05/09/24 06:42 05/09/24 06:42 05/09/24 06:42 05/09/24 06:42 Lab Results 05/09/24 07:06 05/09/24 07:06 Blood Type / Crossmatch: 2 Antibody Screen Pending 05/09/24 Complete Blood Count: 2 No Data to Display Complete Metabolic Panel: 2 No Data to Display Liver Function Panel: 2 No Data to Display Coagulation Panel: 2 No Data to Display Cardiac Panel: 2 No Data to Display Arterial Blood Gas: 2 No Data to Display Venous Blood Gas: 2 No Data to Display Pancreas Panel: 2 No Data to Display Thyroid Panel: 2 No Data to Display Infectious Disease: 2 No Data to Display Blood Cultures: 2 No Data to Display Toxicology Panel: 2 No Data to Display Imaging and Studies Imaging and Studies Study information below may be from another EMR and interpreted by another provider. Please see original notes in EMR for more complete details. EKG Summary: 04/16/24: Exam: Resting ECG Reason for Exam: pre-op testing Patient Location: O HR:75 bpm ECG Measurements Heart Rate 75 AXIS OR 164 P 67 QRSd 90 QRS -20 QT 375 T41 QTc 419 Conclusion Sinus rhythm...normal P axis, V-rate 50- 99 Abnormal R-wave progression, early transition...QRS area>0 in V2 Stress Test Summary: 03/02/22: MPI Conclusion Myocardial perfusion is normal. There is no evidence of ischemia or infarction EF 95%, normal wall motion Anesthesia Assessment and Plan Anesthesia History Personal History: No History of Anesthesia Complications Family History: No Family History of Anesthesia Complications Exercise Tolerance Exercise Tolerance: Metabolic Equivalents>4 Pertinent Negatives Pertinent Negatives: No Symptoms of GERD, No Major Cardiovascular Symptoms or Complaints and No Major Pulmonary Symptoms or Complaints Cardiac & Pulmonary Exam Cardiac Exam: Normal S1/S2 Heart Sounds Pulmonary Exam: Clear Bilateral Breath Sounds Implantable Cardiac Device Does patient have a Pacemaker or an ICD?: No Airway Exam Known Difficult Airway: No Mallampati Class: 2 Mouth Opening: Normal (> 3cm) Thyromental Distance: Greater than 3 cm Neck Range of Motion: Full ROM Neck Circumference: Normal Teeth Condition: Normal Dentition ASA Classification ASA Score: ASA 3 Emergency Case?: No NPO Status NPO Status: NPO Clears >2 hours, Solids >8 hours Anesthesia Plan Resuscitation Status: Full Code Anesthesia Technique: General Anesthesia Airway Planned: LMA Monitors Used: Standard Monitors
[2024-05-09] MEDS: Normal Saline 1,000 ML 100 ML IV (07:19)
[2024-05-09 07:33] LABS: Anion Gap 9.7 mmol/L (3-11); BUN 26 mg/dL (7-18); CO2 28.3 mmol/L (21.0-32.0); CREATININE 1.2 mg/dL (0.55-1.02); Chloride 105 mmol/L (98-107); Estimated GFR 47.21 (mL/min/1.73m2); Potassium 3.7 mmol/L (3.5-5.1); Sodium 143 mmol/L (136-145)
[2024-05-09 07:40] LABS: Abs Immature Grans 0.02 10^3/uL (0.0-0.06); Absolute Basophil Count 0.05 10^3/uL (0.0-0.2); Absolute Eosinophil Count 0.09 10^3/uL (0.0-0.7); Absolute Lymphocyte Count 2.17 10^3/uL (1.2-3.4); Absolute Monocyte Count 0.48 10^3/uL (0.1-0.8); Absolute Neutrophil Count 4.37 10^3/uL (1.2-6.7); Basophils % 0.7 %; Eosinophils % 1.3 %; HCT 37.4 % (36.0-46.0); HGB 11.8 g/dL (11.2-15.7); Immature Grans % 0.3 %; Lymphocytes % 30.2 %; MCH 28.5 pg (27.0-33.0); MCHC 31.6 % (32.0-36.0); MCV 90 fL (80-95); MPV 9.2 fL (8.0-11.0); Monocytes % 6.7 %; Neutrophils % 60.8 %; Platelet Count 250 10^3/uL (130-400); RBC 4.14 10^6/uL (3.93-5.22); RDW 12.9 % (11.7-14.6); RDW-SD 42.6 fL; WBC 7.18 10^3/uL (4.4-10.8)
--- NOTE | 2024-05-09 08:29 | ENDO_PTH ---
PATIENT: Alba Minor LOC: [facility] U#:[id number] AGE/SX: 73/F ROOM: RE05/09/[address]: Marry Shen DO : 1950 BED: DIS: 05/09/2024 SPEC #: [id number] RECD: 05/09/24 13:05 STATUS: [facility] #: [id number] ISRA: 05/09/24 08:[address]: Marry Shen DEPT: Surgical Specimen RECD BY: Mary Tracy ENTERED: 05/09/24 13:06 SP TYPE: Endo OTHR DR: Cristina Chaparro APRN Tissues: 1 - ENDOCERVICAL BX/CURRETTE 2 - ENDOMETRIUM BX/CURRETTE Procedures: GROSS AND MICRO LEVEL 4 Comments: [id number]
--- NOTE | 2024-05-09 08:51 | ROE_ITS ---
Date of service: 05/09/24 Time of Service: 08:51 Operative Note Operative Note DATE OF PROCEDURE: 05/09/24 PRE-OP DIAGNOSIS: Postmenopausal bleeding, thickened endometrium POST-OP DIAGNOSIS: same PROCEDURE: Hysteroscopy, dilation and curettage?fractional SURGEON: Marry Shen ANESTHESIA TYPE: General LMA/ETT Refer to Anesthesia Record ESTIMATED BLOOD LOSS: 5 PATHOLOGY: other (1. Endocervical curetting 2. Endometrial curetting) COMPLICATIONS: None Patient was transported to: PACU Patient's condition: stable Implants: None Indications: Postmenopausal bleeding, thickened endometrium Findings: Regular endometrial lining with irregularity at the fundal region. Normal- appearing endocervix. Procedure Description: After full informed consent was obtained, patient was taken the operating suite with an IV running. She had voided prior to presentation to the OR. She was placed in dorsal supine position and subsequently in the dorsal lithotomy position while awake due to her back discomfort to ensure appropriate positioning without exacerbating her back pain or radiculopathy. At this point, anesthesia administered via LMA. Exam under anesthesia was performed revealing a uterus that is midline and mobile and abdomen is soft without evidence of mass. A timeout was held. Pneumatic compression stockings have been placed for DVT prophylaxis. She was prepped and draped in the usual sterile fashion. Speculum was inserted into the vaginal vault and cervix identified. The cervix grasped with a single-tooth tenaculum and the cervix dilated to the point that a 4 mm hysteroscope could be passed without difficulty. Endocervical curettage was performed. At this point a 4 mm hysteroscope was passed and instillation of normal saline used to evaluate the endometrial cavity. The majority of the endometrial cavity appeared smooth and regular. There was some irregularity at the fundal region without discrete mass noted. At this point the hysteroscope portion was discontinued and a sharp curettage performed with a banjo curette for scant tissue. Upon completion of the curettage, tenaculum was removed and puncture site hemostatic. The speculum was removed and the patient was returned to the dorsal supine position. She woke from anesthesia without difficulty. She was taken to the postanesthesia care unit in stable condition. Complications: None apparent Findings: Slight irregularity at the uterine fundus otherwise regular endometrium. Pathology: 1. Endocervical curettage 2. Endometrial curettage Fluids: Crystalloid per anesthesia with an additional 25 mL of normal saline fluid deficit from hysteroscopy Pathology: 1. Endocervical curettage 2. Endo vitreal curettage EBL: 5 mL
[2024-05-09] MEDS: Ketorolac 15 MG/ML VIAL IVP (09:05)
--- NOTE | 2024-05-09 11:30 | ANES.POST_ITS ---
Postoperative Evaluation Date, Time and Location Date Performed: 05/09/24 Time Performed: 10:45 Patient Location: Day Surgery Unit Vital Signs Most Recent Imported Vital Signs: Most Recent Vital Signs Temp Pulse Resp BP Pulse Ox 36.3 C L 86 16 169/72 H 82 L 05/09/24 09:59 05/09/24 10:46 05/09/24 09:59 05/09/24 10:55 05/09/24 10:55 Pain Score Most Recent Pain Score: Most Recent Pain Score Pain Level 0 05/09/24 09:59 Assessment Mental Status: Awake (Alert & Oriented to Patient Baseline) Airway and Respiratory Function: Patent airway with normal (patient baseline) respiratory exam Cardiovascular Function: Hemodynamically Stable Hydration Status: Adequately Hydrated Nausea & Vomiting: No Nausea or Vomiting Pain: Pt. Denies Any Pain Peripheral Nerve Block: Patient did not receive a nerve block Postoperative Comments:: Anxiety episode during post-op period. Resolved without medication. No seizure activity. Discharged with friend for post-op observation. Iraj Connell [employer] MEMBER
--- NOTE | 2024-05-09 12:02 | NUR.NOTE ---
10:30am No signed d/c order or d/c instructions from Dr. Shen. Dr. Shen scrubbed in OR at this time assisting Dr. Alonzo. Jesus MADSEN contacted OR via Modesta MADSEN who communicated with Dr. Shen. Dr. Shen gave a verbal order for pt to be d/c and F/U appointment to be made for 2 weeks time. Yeni Nice RN
== END 2024-05-09 11:09 | disposition home or self-care (01) ==
PROVIDERS: PCP Nurse Practitioner; Visit Provider Obstetrics & Gynecology
PROC: 0UDB8ZZ Extraction of Endometrium, Via Natural or Artificial Opening Endoscopic (ICD-10-PCS; CPT 58558; principal; 2024-05-09 07:30)
DX: N95.0 Postmenopausal bleeding (principal); R93.89 Abnormal findings on diagnostic imaging of other specified body structures
CPT/HCPCS: 58558; 36415; 80051; 84520; 86850; 86900; 86901; 88305; 82565; 85025; J1100; J1885; J2001; J2250; J2405; J2704; J3010

== ENCOUNTER 2024-10-30 13:52 | Emergency (ER) | payer MEDICARE, SELFPAY ==
[2024-10-30] VITALS (14 sets, daily range): BP systolic 126–198; BP diastolic 46–109; PULSE 75–99; RESP 16–24; TEMP 36.2–36.8; O2SAT 93–98
--- NOTE | 2024-10-30 14:00 | DI.RAD_ITS ---
Exam(s) XR HIP PELVIS ADULT BL EXAM: XR HIP PELVIS ADULT BL CLINICAL HISTORY: fall. TECHNIQUE: 2D digital imaging was performed. Three views. COMPARISON: CR XR DEXA BONE DENSITY W/WO BALDEV from 05/05/2023 FINDINGS: BONES: No acute fracture is present. No bony destructive lesion is seen. The sacrum is mostly obscu red by overlying stool and bowel gas. There is severe degenerative changes of the lower lumbar spine . JOINTS: No dislocation present. SI joints and pubic symphysis are unremarkable. The hip joint spac es are maintained. There is bilateral acetabular spurring. SOFT TISSUE: Normal. IMPRESSION: No acute abnormality. DATA REPOSITORY: RADIATION DOSE DELIVERED:
--- NOTE | 2024-10-30 14:00 | DI.RAD_ITS ---
Exam(s) XR FOOT RT COMPLETE EXAM: XR FOOT RT COMPLETE CLINICAL HISTORY: right leg pain. TECHNIQUE: 2D digital imaging was performed. Three views. COMPARISON: No exams were available for comparison FINDINGS: BONES: No acute fracture is present. No bony destructive lesion is seen. Small plantar calcaneal spu r. JOINTS: No dislocation present. Mild degenerative changes. Accessory navicular. SOFT TISSUE: Normal. IMPRESSION: No acute abnormality. DATA REPOSITORY: RADIATION DOSE DELIVERED:
--- NOTE | 2024-10-30 14:00 | DI.RAD_ITS ---
Exam(s) XR KNEE RT 3V AP,LAT,CAM EXAM: XR KNEE RT 3V AP,LAT,CAM CLINICAL HISTORY: right leg pain. TECHNIQUE: 2D digital imaging was performed. Three views. COMPARISON: CR,XR XR KNEE LT 4V AP,LAT,CAM,PAT from 11/25/2022 FINDINGS: BONES: No acute fracture is present. No bony destructive lesion is seen. JOINTS: Severe narrowing of the lateral femoral tibial joint space with prominent periarticular spurr ing. Prominent spurring and joint space narrowing also noted at the patellofemoral joint. Compensat ory widening of the medial femoral tibial compartment. A small joint effusion is seen. SOFT TISSUE: Normal. IMPRESSION: Severe degenerative changes. No acute abnormality. DATA REPOSITORY: RADIATION DOSE DELIVERED:
--- NOTE | 2024-10-30 14:23 | ED.GENADUL_ITS ---
Discharge Plan Disposition Patient Disposition: Home Discharge Details Clinical Impression: Fall, Osteoarthritis, Chronic pain of both knees, Joint pain, Fall due to ice or snow Primary Care Provider: Cristina Chaparro ED Provider: Louis Gomez Home Meds and New Rx's Prescriptions: No Action acetaminophen 500 mg tablet 1,000 mg PO TID Qty: 540 3RF clobazam 10 mg tablet 10 mg PO QHS (DME) blood-glucose meter Misc See Rx Instructions .ROUTE .MEDSUPPLY Qty: 1 0RF Rx Instructions: As directed to check daily morning fasting blood glucose. No insulin. Dispense covered brand. (DME) Blood Glucose Test Strip See Rx Instructions .ROUTE .MEDSUPPLY Qty: 100 3RF Rx Instructions: As directed to check daily morning fasting blood glucose. No insulin. Dispense covered brand. (DME) lancets Misc See Rx Instructions .ROUTE .MEDSUPPLY Qty: 100 3RF Rx Instructions: As directed to check daily morning fasting blood glucose clonazepam 0.5 mg tablet See Rx Instructions PO BID Rx Instructions: .5mg am, 1 mg pm [facility] note dated 12/29/20 cgc lamotrigine [Lamictal] 100 mg Tablet 100 mg PO BID Discharge Instructions Additional Instructions: Your x-ray imaging today does not reveal any broken bones you will likely be sore tomorrow, continue taking tylenol you can use the walker as needed be careful on the ice HPI General Date/Time Provider Initiated Documentation: 10/30/24 14:10 . Limitations to Documentation: language barrier (jordan worker used) . Information obtained by: patient . HPI Narrative: 74-year-old female with past medical history of CKD, epilepsy, anxiety presents via EMS for evaluation after a fall. She reports that she slipped and fell on the ice. She states that her right leg twisted and went backwards. She reports pain in her right leg. She states that she has pain in the entire leg, but says that mostly in the foot and in the knee. She states that she has chronic knee pain, but after this fall the pain has been severe. She states that she was helped up but has not really been able to walk since then because of the pain. She thinks she might of hit her head but she cannot be sure, there was no loss of consciousness. She does not take any blood thinner medication. Related Data Home Medications ?Medication ?Instructions ?Recorded ?Confirmed blood sugar diagnostic (Blood #100 ea 06/20/19 10/30/24 Glucose Test strips) blood-glucose meter #1 ea 06/20/19 10/30/24 lancets #100 ea 06/20/19 10/30/24 lamotrigine 100 mg tablet 100 mg PO BID 09/11/20 10/30/24 (Lamictal) clonazepam 0.5 mg tablet See Rx Instructions PO BID 12/30/20 10/30/24 acetaminophen 500 mg tablet 1,000 mg (2 x 500 mg) PO TID pain 12/01/22 10/30/24 #540 tab-caps clobazam 10 mg tablet 10 mg PO QHS 06/04/24 10/30/24 Previous Rx's ?Medication ?Instructions ?Recorded blood sugar diagnostic (Blood #100 ea 06/20/19 Glucose Test strips) blood-glucose meter #1 ea 06/20/19 lancets #100 ea 06/20/19 acetaminophen 500 mg tablet 1,000 mg (2 x 500 mg) PO TID pain 12/01/22 #540 tab-caps Allergies Allergy/AdvReac Type Severity Reaction Status Date / Time No Known Allergies Allergy Verified 10/30/24 14:00 General Stated Complaint: Fall/Non TraumaCriteria NELI: 3 Exam Narrative Exam Narrative: Review of Systems: All systems reviewed & are unremarkable except as noted in HPI and below Well-developed, no acute distress NCAT No midline C-spine tenderness RRR Unlabored respiratory effort clear bilaterally Nondistended abdomen soft nontender Mild right hip tenderness to palpation but able to lift her leg off the bed Right knee with anterior bruise and slight effusion, no deformity Neurovascularly intact distally no focal neurologic deficits Course Vital Signs Vital signs: Vital Signs Temperature 36.2 C L 10/30/24 13:52 Pulse 84 10/30/24 13:52 Respiratory Rate 16 10/30/24 13:52 Blood Pressure 187/67 H 10/30/24 13:52 Temperature 36.2 C L 10/30/24 13:52 Temperature Source Temporal Artery Scan 10/30/24 13:52 Pulse 84 10/30/24 13:52 Respiratory Rate 16 10/30/24 13:52 Blood Pressure 187/67 H 10/30/24 13:52 Oxygen Delivery Method Room Air 10/30/24 13:52 Oxygen Flow Rate 0 10/30/24 13:52 Medical Decision Making Emergent evaluation of injury after a fall on the ice. Patient reports pain localized to the right lower extremity. There are no obvious deformity. She does have chronic joint problems and osteoarthritis. Will give some pain control and x-ray image to evaluate for fracture. Will get CT imaging of her head and C-spine given her age and unclear history regarding head trauma. CT of her head and C-spine do not reveal any acute traumatic injury. The remainder of her right lower extremity x-rays are also unremarkable for an acute process. She definitely has significant degenerative joint problems. The patient was ambulated around the emergency department. She was provided a walker for stability and will be discharged with this. At this time her pain is well-controlled and she is stable for discharge home. 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) CKD (chronic kidney disease) (Chronic) Osteoarthritis (Chronic) GERD (gastroesophageal reflux disease) (Chronic) Frequent falls (Acute) IFG (impaired fasting glucose) (Chronic) Anxiety and depression (Chronic) Telogen effluvium (Chronic) [facility] Derm Partial symptomatic epilepsy with complex partial seizures, intractable, without status epilepticus (Chronic) [facility] Neuro Implanted stimulator 2008 Microscopic hematuria (Chronic 03/25/17) 02/2017 urology consultation: negative cystoscopy with retrograde pyelogram; Recommend annual UAs with repeat workup in 3-5 years if persistent; 10/2022 UA neg for blood Memory loss (Chronic) neurology clinic note dated 09/28/17 Low back pain (Acute 07/10/14) XRay [facility] 2.2013: DJD, mild anterolithesis L4 against L5 Irritable bowel syndrome (Chronic 03/23/12) Dr. Iglesias GI [facility] Hyperlipidemia (Chronic 03/23/12) 03/2019 labs: 10-year ASCVD risk = ~14.5% --> started on moderate intensity statin therapy Headache (Acute 03/23/12) Dyspepsia (Acute 05/03/14) GI [facility] EGD 03/2009 Hpylori treated and resolved Chronic constipation (Chronic 05/27/17) [facility] GI Medical History Sebaceous cyst Renal cyst 08/20/2020 US: simple cyst Cyst of breast, right, solitary (03/2018) Tubular adenoma of colon (07/12/17) descending colon Liver function abnormality (05/03/14) GI [facility] neg CT, lab w/u; ? from antiseizure meds Chest pain, unspecified (05/09/13) nl MPI 05/07/13 EF 71%; later thought to be 2/2 GERD Colon cancer Surgical History Hx of colonoscopy (~02/21/24) [facility] Dr Gandhi H/O esophagogastroduodenoscopy (~02/21/24) [facility], Dr Gandhi-7mm soft nodule unchanged from 2020 Colectomy (~1994) For colon CA Social History Smoking/Tobacco Use Status: Never Smoking risk assessment performed?: Yes Alcohol Intake: never Drug use: Never Substance use type: does not use Caregiver/Support person: No Household members: spouse Housing: apartment Communication Needs: Language Barriers Current gender identity: female What type of physical activity do you participate in: none Do you feel safe at home: Yes (pt reports she feels safe at home) Do you feel safe in your relationship?: Yes History History 2 Para 2 Hx # Term Pregnancies 2 Multiple births Hx # Pregnancies Ectopic pregnancies AB induced Hx Number of Living Children 2 AB spontaneous
[2024-10-30] MEDS: Methocarbamol 500 MG TAB 1000 MG PO (14:33)
[2024-10-30] MEDS: Acetaminophen 500 MG TAB 1000 MG PO (14:33)
--- NOTE | 2024-10-30 15:50 | DI.CT_ITS ---
Exam(s) CT HEAD CERVICAL SPINE WO EXAM: CT HEAD CERVICAL SPINE WO CLINICAL HISTORY: trauma. TECHNIQUE: Imaging Protocol: Axial computed tomography images with coronal and sagittal reformatted images were created and reviewed COMPARISON: CT CT HEAD CERV SPINE FACIAL WO from 11/25/2022 FINDINGS: CT Head: Ventricles and Extra axial spaces: Normal in size and morphology for the patient's age. Hemorrhage: None. Cerebral parenchyma: No evidence of an acute territorial infarct. There are areas of decreased atten uation in the white matter most consistent with chronic microvascular ischemic disease. Stable intra parenchymal calcifications are seen. No mass effect is identified. Midline shift: None. Brainstem/Cerebellum: Normal. Calvarium: Normal. Visualized Paranasal sinuses/Mastoids: Clear. Soft Tissues: Unremarkable. CT Cervical Spine: Bones: No acute fracture or subluxation. There are degenerative changes present. Soft Tissues: Unremarkable. Lung Apices: Clear. IMPRESSION: 1. No acute intracranial process. 2. No acute fracture or subluxation in the cervical spine. RADIATION DOSE DELIVERED: 1,147.31mGy.cm Total DLP DATA REPOSITORY: All CT scans at this facility are submitted to the National Radiology Data Registry (NRDR) Dose Index Registry (DIR) with the [employer] (A[employer]). RADIATION OPTIMIZATION: All CT scans at this facility use at least one of these dose optimization te chniques: automated exposure control; mA and/or kV adjustment per patient size (includes targeted exa ms where dose is matched to clinical indication); or iterative reconstruction.
--- NOTE | 2024-10-30 18:35 | NUR.NOTE ---
Nursing Note: patient walked to bathroom and back to room with this RN
== END 2024-10-30 18:59 | disposition home or self-care (01) ==
PROVIDERS: Emergency Provider Emergency Medicine; PCP Nurse Practitioner
DX: M17.0 Bilateral primary osteoarthritis of knee (principal); G40.909 Epilepsy, unspecified, not intractable, without status epilepticus; F41.9 Anxiety disorder, unspecified; W00.0XXA Fall on same level due to ice and snow, initial encounter; Y93.01 Activity, walking, marching and hiking; Y92.480 Sidewalk as the place of occurrence of the external cause
CPT/HCPCS: 73521; 73562; 99284; 70450; 72125; 73630

== ENCOUNTER 2024-11-08 13:38 | Emergency (ER) | payer MEDICARE, SELFPAY ==
[2024-11-08 13:36] VITALS: BP 186/60; PULSE 82; RESP 14; TEMP 36.6; O2SAT 95
[2024-11-08 14:00] VITALS: BP 186/60; PULSE 82; RESP 14; TEMP 36.6; O2SAT 95
[2024-11-08 14:12] VITALS: RESP 16
--- NOTE | 2024-11-08 14:30 | DI.RAD_ITS ---
Exam(s) XR CHEST 2V PA LATERAL EXAM: XR CHEST 2V PA LATERAL CLINICAL HISTORY: vagal nerve stimulator feels displaced TECHNIQUE: 2D digital imaging was performed. Two views. COMPARISON: CR CHEST 2 VIEWS PA,LAT from 04/18/2013 CR,XR XR SHUNT SERIES from 01/27/2022 FINDINGS: HEART: Normal size. Aorta: Not dilated. PULMONARY VASCULATURE: Normal. MEDIASTINUM: Unremarkable. LUNGS: Clear. PLEURAL SPACE: No pleural effusion or pneumothorax. BONE:Unremarkable for age. SOFT TISSUES: Cervical stimulator device over left chest. The lead projects at the cervical thoracic junction on the left. There is no change in position the lead. IMPRESSION: No acute abnormality. Stable positioning of vagus nerve stimulator lead. DATA REPOSITORY: RADIATION DOSE DELIVERED:
--- NOTE | 2024-11-08 14:30 | RT.EKG_ITS ---
APPROVED REPORT Exam: Resting ECG Reason for Exam: chest pain Patient Location: E HR:79 bpm ECG Measurements Heart Rate 79 AXIS OR 172 P -22 QRSd 81 QRS 53 QT 389 T 16 QTc 447 Conclusion Sinus rhythm...normal P axis, V-rate 60- 99
--- NOTE | 2024-11-08 15:31 | W.ED.GENAD ---
Discharge Plan Discharge Details Chief Complaint: GenMedical Primary Care Provider: Cristina Chaparro ED Provider: Mary Faith Home Meds and New Rx's Prescriptions: No Action acetaminophen 500 mg tablet 1,000 mg PO TID Qty: 540 3RF clobazam 10 mg tablet 10 mg PO QHS (DME) blood-glucose meter Misc See Rx Instructions .ROUTE .MEDSUPPLY Qty: 1 0RF Rx Instructions: As directed to check daily morning fasting blood glucose. No insulin. Dispense covered brand. (DME) Blood Glucose Test Strip See Rx Instructions .ROUTE .MEDSUPPLY Qty: 100 3RF Rx Instructions: As directed to check daily morning fasting blood glucose. No insulin. Dispense covered brand. (DME) lancets Misc See Rx Instructions .ROUTE .MEDSUPPLY Qty: 100 3RF Rx Instructions: As directed to check daily morning fasting blood glucose clonazepam 0.5 mg tablet See Rx Instructions PO BID Rx Instructions: .5mg am, 1 mg pm [facility] [place] dated 12/29/20 [facility] lamotrigine [Lamictal] 100 mg Tablet 100 mg PO BID divalproex 250 mg tablet,delayed release (DR/EC) 250 mg PO DAILY Patient Comments: TAKE ONE TABLET BY MOUTH EVERY DAY HPI General Date/Time Provider Initiated Documentation: 11/08/24 14:05. HPI Narrative: This 74-year-old female with history of epilepsy with vagal nerve stimulator placed in 2019 presents with report of pain which was sharp that radiates up to her neck and down her arm. She states immediately after this the stimulator magnet was not effective. Patient denies any fever or chills. She denies chest pain or shortness of breath and has not had a similar episode since last evening. She states that she tried to use her magnet on 2 separate occasions last evening and it did not elicit any response from her vagal nerve stimulator which concerned her. She states no jaw started working approximately 20 minutes into her visit here. She is currently asymptomatic and denies any complaints. Denies any nausea or diaphoresis associated. Denies any exertional component to symptoms or history of coronary artery disease. She follows with neurology at [facility], Dr. Vickie Godfrey for her seizures. She has not had a seizure for 15 years per patient. Related Data Home Medications ?Medication ?Instructions ?Recorded ?Confirmed blood sugar diagnostic (Blood #100 ea 06/20/19 11/08/24 Glucose Test strips) blood-glucose meter #1 ea 06/20/19 11/08/24 lancets #100 ea 06/20/19 11/08/24 lamotrigine 100 mg tablet 100 mg PO BID 09/11/20 11/08/24 (Lamictal) clonazepam 0.5 mg tablet See Rx Instructions PO BID 12/30/20 11/08/24 acetaminophen 500 mg tablet 1,000 mg (2 x 500 mg) PO TID pain 12/01/22 11/08/24 #540 tab-caps clobazam 10 mg tablet 10 mg PO QHS 06/04/24 11/08/24 divalproex 250 mg tablet,delayed 250 mg PO DAILY 11/08/24 11/08/24 release Previous Rx's ?Medication ?Instructions ?Recorded blood sugar diagnostic (Blood #100 ea 06/20/19 Glucose Test strips) blood-glucose meter #1 ea 06/20/19 lancets #100 ea 06/20/19 acetaminophen 500 mg tablet 1,000 mg (2 x 500 mg) PO TID pain 12/01/22 #540 tab-caps Allergies Allergy/AdvReac Type Severity Reaction Status Date / Time No Known Allergies Allergy Verified 11/08/24 13:57 General Stated Complaint: GenMedical NELI: 3 Exam Narrative Exam Narrative: Alert and oriented 74-year-old female, cardiac rate rhythm regular, no abdominal tenderness, no calf swelling or tenderness, lungs clear to auscultation, Tajik-speaking,, distal pulses intact to all 4 extremities Course Vital Signs Vital signs: Vital Signs Temperature 36.6 C 11/08/24 13:36 Pulse 82 11/08/24 13:36 Respiratory Rate 14 11/08/24 13:36 Blood Pressure 186/60 H 11/08/24 13:36 Pulse Oximetry 95 11/08/24 13:36 Temperature 36.6 C 11/08/24 14:00 Temperature Source Temporal Artery Scan 11/08/24 14:00 Pulse 82 11/08/24 14:00 Respiratory Rate 16 11/08/24 14:12 Respiratory Effort Normal 11/08/24 14:12 Respiratory Depth Normal 11/08/24 14:12 Respiratory Pattern Normal 11/08/24 14:12 Blood Pressure 186/60 H 11/08/24 14:00 Blood Pressure Position Sitting 11/08/24 14:00 Pulse Oximetry 95 11/08/24 14:00 Oxygen Delivery Method Room Air 11/08/24 14:00 Oxygen Flow Rate 0 11/08/24 14:00 Medical Decision Making 74-year-old female presenting with sharp shooting pain in the distribution of her vagal nerve stimulator which stopped working immediately after the event. Denies any current discomfort and has not had pain since last evening. States that this morning the magnet was also ineffective and she is concerned that the stimulator has migrated. I ordered a chest x-ray and EKG stimulator leads are in good position per radiology and EKG is nonischemic without injury. I placed a call to [facility] to discuss the case with neurosurgery or neurology and [facility] is recommended neurosurgery evaluation as they placed the stimulator. I specifically would like to ask regarding complications of a malfunctioning stimulator and establish follow-up for patient. At this time she remains asymptomatic. She is predominantly Tajik-speaking, however she is comfortable conversing with us without certified marine mechanic in fact certified marine mechanic seems to present more of a barrier. Will transition care pending neurosurgery consultation. 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 (Acute) CKD (chronic kidney disease) (Chronic) Osteoarthritis (Chronic) GERD (gastroesophageal reflux disease) (Chronic) Frequent falls (Acute) IFG (impaired fasting glucose) (Chronic) Anxiety and depression (Chronic) Telogen effluvium (Chronic) [facility] Derm Partial symptomatic epilepsy with complex partial seizures, intractable, 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 Iglesias GI [facility] Hyperlipidemia (Chronic 03/23/12) 03/2019 labs: 10-year ASCVD risk = ~14.5% --> started on moderate intensity statin therapy Headache (Acute 03/23/12) Dyspepsia (Acute 05/03/14) GI [facility] EGD 03/2009 Hpylori treated and resolved Chronic constipation (Chronic 05/27/17) [facility] GI Medical History Sebaceous cyst Renal cyst 08/20/2020 US: simple cyst Cyst of breast, right, solitary (03/2018) Tubular adenoma of colon (07/12/17) descending colon Liver function abnormality (05/03/14) GI [facility] neg [place], lab w/u; ? from antiseizure meds Chest pain, unspecified (05/09/13) nl MPI 05/07/13 EF 71%; later thought to be 2/2 GERD Colon cancer Surgical History Hx of colonoscopy (~02/21/24) [facility] Gandhi H/O esophagogastroduodenoscopy (~02/21/24) [facility], Dr Gandhi-7mm soft nodule unchanged from 2020 Colectomy (~1994) For colon CA Social History Smoking/Tobacco Use Status: Never Smoking risk assessment performed?: Yes Alcohol Intake: never Drug use: Never Substance use type: does not use Caregiver/Support person: No Household members: spouse Housing: apartment Communication Needs: Language Barriers Current gender identity: female What type of physical activity do you participate in: none Do you feel safe at home: Yes (pt reports she feels safe at home) Do you feel safe in your relationship?: Yes History History 2 Para 2 Hx # Term Pregnancies 2 Multiple births Hx # Pregnancies Ectopic pregnancies AB induced Hx Number of Living Children 2 AB spontaneous
[2024-11-08 15:51] VITALS: BP 168/57; PULSE 76; RESP 16; TEMP 36.9; O2SAT 97
[2024-11-08 16:20] LABS: Troponin I 8 ng/L (<or=51)
== END 2024-11-08 18:02 | disposition home or self-care (01) ==
PROVIDERS: Emergency Provider Physician Assistant; PCP Nurse Practitioner
DX: M54.2 Cervicalgia (principal); Z96.82 Presence of neurostimulator
CPT/HCPCS: 36415; 93005; 99284; 71046; 84484; 93010

== ENCOUNTER 2024-11-22 16:26 | Inpatient (IN) | payer MEDICARE, SELFPAY ==
[2024-11-22] VITALS (38 sets, daily range): BP systolic 115–182; BP diastolic 37–167; PULSE 70–159; RESP 11–29; TEMP 33.4–37.4; O2SAT 94–100
--- NOTE | 2024-11-22 16:30 | RT.EKG_ITS ---
APPROVED REPORT Exam: Resting ECG Reason for Exam: hypothermia Patient Location: E HR:99 bpm ECG Measurements Heart Rate 99 AXIS UT [id number] P [id number] QRSd 100 QRS -38 QT 398 T 46 QTc 510 Conclusion Sinus rhythm at a rate of 99 with motion artifact change and wandering leads without acute ischemic c hange.
--- NOTE | 2024-11-22 16:45 | ED.GENADUL_ITS ---
Discharge Plan Disposition Patient Disposition: Admit to [facility] Condition: Stable Discharge Details Chief Complaint: ColdExpose Clinical Impression: Hypothermia due to exposure, Elevated troponin Primary Care Provider: Cristina Chaparro ED Provider: Tosha Hernandez Home Meds and New Rx's Prescriptions: No Action acetaminophen 500 mg tablet 1,000 mg PO TID Qty: 540 3RF clobazam 10 mg tablet 10 mg PO QHS (DME) blood-glucose meter Misc See Rx Instructions .ROUTE .MEDSUPPLY Qty: 1 0RF Rx Instructions: As directed to check daily morning fasting blood glucose. No insulin. Dispense covered brand. (DME) Blood Glucose Test Strip See Rx Instructions .ROUTE .MEDSUPPLY Qty: 100 3RF Rx Instructions: As directed to check daily morning fasting blood glucose. No insulin. Dispense covered brand. (DME) lancets Misc See Rx Instructions .ROUTE .MEDSUPPLY Qty: 100 3RF Rx Instructions: As directed to check daily morning fasting blood glucose clonazepam 0.5 mg tablet See Rx Instructions PO BID Rx Instructions: .5mg am, 1 mg pm [facility] [place] 12/29/20 [facility] lamotrigine [Lamictal] 100 mg Tablet 100 mg PO BID divalproex 250 mg tablet,delayed release (DR/EC) 250 mg PO DAILY Patient Comments: TAKE ONE TABLET BY MOUTH EVERY DAY HPI General Date/Time Provider Initiated Documentation: 11/22/24 16:37 . HPI Narrative: The patient is a 74-year-old female with history of memory loss, frequent falls, chronic kidney disease who comes the emergency department for hypothermia. History is obtained from EMS and the patient. Reports that medics found the patient at the end of her driveway which was may be 75 to 100 [address] from their house. Reports she was sitting on a snow bank wearing wet clothes. On EMS arrival the patient was hypothermic with temperature in the 90s. She was given a liter of warm normal saline and her wet clothes were removed. Warm packs replaced in her axilla and groin. Local police went into the patient's home and found the asleep. It is unsure how long the patient has been out there for. The patient herself does not recall how long she has been out there for and does not know why she was outside in the first place. Reports that she cannot feel her hands and feet and she feels very cold. Denies any headache. Reports her chest does not hurt. Denies feeling short of breath. Denies abdominal pain. Related Data Home Medications ?Medication ?Instructions ?Recorded ?Confirmed blood sugar diagnostic (Blood #100 ea 06/20/19 11/08/24 Glucose Test strips) blood-glucose meter #1 ea 06/20/19 11/08/24 lancets #100 ea 06/20/19 11/08/24 lamotrigine 100 mg tablet 100 mg PO BID 09/11/20 11/22/24 (Lamictal) clonazepam 0.5 mg tablet See Rx Instructions PO BID 12/30/20 11/22/24 acetaminophen 500 mg tablet 1,000 mg (2 x 500 mg) PO TID pain 12/01/22 11/22/24 #540 tab-caps clobazam 10 mg tablet 10 mg PO QHS 06/04/24 11/22/24 divalproex 250 mg tablet,delayed 250 mg PO DAILY 11/08/24 11/22/24 release Previous Rx's ?Medication ?Instructions ?Recorded blood sugar diagnostic (Blood #100 ea 06/20/19 Glucose Test strips) blood-glucose meter #1 ea 06/20/19 lancets #100 ea 06/20/19 acetaminophen 500 mg tablet 1,000 mg (2 x 500 mg) PO TID pain 12/01/22 #540 tab-caps Allergies Allergy/AdvReac Type Severity Reaction Status Date / Time No Known Allergies Allergy Verified 11/22/24 20:06 General Stated Complaint: ColdExpose NELI: 2 Review of Systems Constitutional Constitutional: Denies fever(s) Cardiovascular Cardiovascular: Denies chest pain and Denies dyspnea Respiratory Respiratory: Denies dyspnea Gastrointestinal Gastrointestinal: Denies abdominal pain Musculoskeletal Comments: The patient reports she can feel her hands and feet. Neurologic Comments: Denies any headache. Exam Const General: cooperative Orientation: alert, awake, oriented to person, oriented to place and other (The patient thinks it is 2001) [facility] Head: normal to inspection, no hematomas and no lacerations Mouth: oral mucosae normal Other: No facial bone tenderness is noted to palpation throughout. Neck Other: No midline C-spine tenderness is noted to palpation. Chest Other: No chest wall tenderness is noted to palpation. Resp Other: Lungs are clear to auscultation bilaterally. Cardio Other: Heart is regular in rate and rhythm. Patient has equal radial pulses. GI Other: The abdomen is soft with normal bowel sounds and no tenderness is noted to palpation throughout. Skin Other: Patient is cold to touch but has no obvious deformity to bilateral upper and lower extremities. She has no apparent tenderness noted to palpation and range of motion testing to bilateral upper and lower extremities. Of note the patient reports that she cannot feel her hands and feet. Course Vital Signs Vital signs: Vital Signs Temperature 33.4 C L 11/22/24 16:31 Pulse 90 11/22/24 16:31 Respiratory Rate 28 H 11/22/24 16:31 Blood Pressure 167/120 H 11/22/24 16:31 Pulse Oximetry 100 11/22/24 16:31 Temperature 33.4 C L 11/22/24 16:31 Temperature Source Rectal 11/22/24 16:31 Pulse 90 11/22/24 16:31 Respiratory Rate 28 H 11/22/24 16:31 Blood Pressure 167/120 H 11/22/24 16:31 Blood Pressure Position Supine 11/22/24 16:31 Pulse Oximetry 100 11/22/24 16:31 Oxygen Delivery Method Room Air 11/22/24 16:31 Oxygen Flow Rate 0 11/22/24 16:31 Medical Decision Making Patient arrived hypothermic with a rectal temperature of 92 degrees. I will continue warmed IV fluid and she has a bear hugger on now. Checking her blood work and was appropriate she will get imaging studies not as well since she is not able to give an appropriate history. The patient's has since arrived. He informs me that although they live together the last time she saw her today was this morning but cannot give me a specific time. Reports that she seems at her baseline during this. Reports that he went to lay down around noon and then woke up with police officers knocking on his window. Reports that his is never done anything like this before. The patient is complaining that there are people living in her basement and her has multiple guns in the house. Please officers did go to the patient's home when she was initially found and there was nobody else in her home according to EMS. The patient's blood work is getting resulted and her troponin is found to be elevated. Patient continues to deny any chest pain. We have yet to do an EKG since the patient is still shivering. Park catheter has been placed with continuous internal thermometer. Her temperature is improving. Her repeat troponin is even more elevated than the initial. EKG has a lot of motion artifact change nevertheless I sent this to [facility] and consulted with rice drier they are on-call, Dr. Lundy. He would not recommend any emergent cardiac intervention. Thinks that troponin elevation is secondary to demand ischemic from being hypothermic. Recommended repeat EKG and echocardiogram in the morning. In the meantime her imaging studies are resulted and they are unremarkable. Regardless the patient will need to be hospitalized. Imaging Data Radiologic Study #3: Imaging: CT Scan (CT head, C-spine, chest, abdomen and pelvis) Radiologist's impression: CT head: Cerebral atrophy and underlying microvascular ischemic changes with no evidence of acute transcortical infarction, recent intracranial hemorrhage or hydrocephalus. No acute intracranial process is detected. CT C-spine: Cervical spondylosis with central canal and foraminal narrowing as above. No acute cervical fractures are detected. CT chest: 1. No acute findings. 2. Incidental findings as described. CT abdomen and pelvis: 1. No acute findings. 2. Park catheter in a decompressed urinary bladder. 3. Incidental findings as described. ECG Data Attestation: I personally reviewed and interpreted this ECG (s) as follows: (Sinus rhythm at a rate of 99 with motion artifact change and wandering leads without acute ischemic change. ) Quality:[facility] Health Related Social Needs: No Data to Display [facility] All Active Problems (Updated 11/22/24 @ 20:33 by Tosha Hernandez DO) Elevated troponin (Acute) Hypothermia due to exposure (Acute) Chest pain of uncertain etiology (Acute) Fall due to ice or snow (Acute) Joint pain (Acute) Fall (Acute) Status post dilation and curettage (Acute) Thickened endometrium (Acute) Postmenopausal bleeding (Acute) Abdominal pain (Acute) Chronic pain of both knees (Acute) Telephone language translator service required (Acute) CKD (chronic kidney disease) (Chronic) Osteoarthritis (Chronic) GERD (gastroesophageal reflux disease) (Chronic) Frequent falls (Acute) IFG (impaired fasting glucose) (Chronic) Anxiety and depression (Chronic) Telogen effluvium (Chronic) [facility] Derm Partial symptomatic epilepsy with complex partial seizures, intractable, without status epilepticus (Chronic) [facility] Neuro Implanted stimulator 2009 Microscopic hematuria (Chronic 03/25/17) 02/2017 urology consultation: negative cystoscopy with retrograde pyelogram; Recommend annual UAs with repeat workup in 3-5 years if persistent; 10/2022 UA neg for blood Memory loss (Chronic) neurology clinic note dated 09/28/17 Low back pain (Acute 07/10/14) XRay [facility] 2.2013: DJD, mild anterolithesis L4 against L5 Irritable bowel syndrome (Chronic 03/23/12) Dr. Iglesias GI [facility] Hyperlipidemia (Chronic 03/23/12) 03/2019 labs: 10-year ASCVD risk = ~14.5% --> started on moderate intensity statin therapy Headache (Acute 03/23/12) Dyspepsia (Acute 05/03/14) GI [facility] EGD 03/2009 Hpylori treated and resolved Chronic constipation (Chronic 05/27/17) [facility] GI Medical History Sebaceous cyst Renal cyst 08/20/2020 US: simple cyst Cyst of breast, right, solitary (03/2018) Tubular adenoma of colon (07/12/17) descending colon Liver function abnormality (05/03/14) GI [facility] neg CT, lab w/u; ? from antiseizure meds Chest pain, unspecified (05/09/13) nl MPI 05/07/13 EF 71%; later thought to be 2/2 GERD Colon cancer Surgical History Hx of colonoscopy (~02/21/24) [facility] Dr Gandhi H/O esophagogastroduodenoscopy (~02/21/24) [facility] Gandhi-7mm soft nodule unchanged from 2020 Colectomy (~1994) For colon CA Social History Smoking/Tobacco Use Status: Never Smoking risk assessment performed?: Yes Alcohol Intake: never Drug use: Never Substance use type: does not use Caregiver/Support person: No Household members: spouse Housing: apartment Communication Needs: Language Barriers Current gender identity: female What type of physical activity do you participate in: none Do you feel safe at home: Yes (pt reports she feels safe at home) Do you feel safe in your relationship?: Yes History History 2 Para 2 Hx # Term Pregnancies 2 Multiple births Hx # Pregnancies Ectopic pregnancies AB induced Hx Number of Living Children 2 AB spontaneous
--- NOTE | 2024-11-22 17:00 | DI.CT_ITS ---
Exam(s) CT HEAD CERVICAL SPINE WO EXAM: CT HEAD CERVICAL SPINE WO CLINICAL HISTORY: AMS, found outside hypothermic. TECHNIQUE: Imaging Protocol: Axial computed tomography images with coronal and sagittal reformatted images were created and reviewed COMPARISON: CT CT HEAD CERVICAL SPINE WO from 10/30/2024 CR XR CHEST 2V PA LATERAL from 11/08/2024 FINDINGS: Head CT Exam mildly limited by motion. Ventricles and Extra axial spaces: Normal in size and morphology for the patient's age. Hemorrhage: None. Cerebral parenchyma: No evidence of mass or acute infarct. Moderate atrophy. Underlying white matte r changes of small vessel disease. Scattered calcifications again noted. Midline shift: None. Brainstem/Cerebellum: Normal. Calvarium: Hyperostosis frontalis interna. No fracture identified. Visualized Paranasal sinuses/Mastoids: Clear. Soft tissues: Unremarkable. Cervical Spine CT BONES: Vertebral body heights are maintained. Alignment is normal. There is no evidence of acute frac ture. Advanced degenerative disc changes and facet degenerative changes are seen . SOFT TISSUES: No paraspinal hematoma. The airway appears intact. No pneumothorax is seen at the lung apices. Left-sided stimulator device. IMPRESSION: Head CT: No acute abnormality. C-spine CT: Degenerative changes, no acute abnormality. RADIATION DOSE DELIVERED: 1,144.49mGy.cm Total DLP DATA REPOSITORY: All CT scans at this facility are submitted to the National Radiology Data Registry (NRDR) Dose Index Registry (DIR) with the [employer] (ACR). RADIATION OPTIMIZATION: All CT scans at this facility use at least one of these dose optimization te chniques: automated exposure control; mA and/or kV adjustment per patient size (includes targeted exa ms where dose is matched to clinical indication); or iterative reconstruction.
--- NOTE | 2024-11-22 17:00 | DI.CT_ITS ---
Exam(s) CT CHEST/ABD/PEL W EXAM: CT CHEST/ABD/PEL W CLINICAL HISTORY: AMS, found outside hypothermic. TECHNIQUE: Imaging Protocol: Axial computed tomography images with coronal and sagittal reformatted images were created and reviewed. Computer aided detection (CAD) was utilized. CONTRAST MATERIAL: Intravenous: Omnipaque 350 Contrast volume:100 ml Oral: / no COMPARISON: CT CT ABDOMEN PELVIS W from 07/29/[address] ABDOMEN PELVIS WO/W from 03/18/[address] ABDOMEN PELVIS W from 09/22/2023 FINDINGS: CHEST: Tracheobronchial tree: Patent. Pulmonary parenchyma: No consolidation or dominant measurable mass. A few scattered bilateral periph eral pulmonary nodules are seen, less than 6 millimeters in size. Pleura: No effusion or pneumothorax. Mediastinum: Within normal limits. Aorta: Thoracic portion non-dilated. Pulmonary arteries: No visible emboli. Heart: Normal size. No pericardial effusion. Bones: Unremarkable for age. No lytic or blastic lesions.No compression fractures. No displaced ri b fractures. Soft tissues: Battery pack related to stimulator device. ABDOMEN and PELVIS: Exam limited by streak artifact related to arm positioning. Liver: Normal density. No measurable mass. Gallbladder and biliary tract: No evidence of stones or wall thickening. No biliary dilatation. Pancreas: Normal density, no abnormal calcifications or inflammatory process. Spleen: Normal. Kidneys: Normal size, contour and axis. No radiodense stones. No obstructive uropathy. No suspicious masses seen. Adrenal glands: No masses seen. Aorta: Abdominal portion non-dilated. Lymph nodes: Within normal limits. Soft tissues: Unremarkable. Bladder: Decompressed by Park catheter. Bowel: Sigmoid anastomosis is unremarkable. Diverticulosis without evidence of diverticulitis. No o bstruction . Peritoneal cavity: No ascites. No focal collection. No mesenteric inflammatory response. No free ai r. Bones: Unremarkable for age. Reproductive organs: Within normal limits. IMPRESSION: No acute abnormality in the chest, abdomen or pelvis. Small bilateral pulmonary nodules. For a low risk patient, for multiple solid noncalcified nodules s maller than 6 mm in diameter, no routine follow-up is recommended (grade 2B; weak recommendation, mod erate-quality evidence). (Anastasia et al., 2017) RADIATION DOSE DELIVERED: 476.44mGy.cm Total DLP DATA REPOSITORY: All CT scans at this facility are submitted to the National Radiology Data Registry (NRDR) Dose Index Registry (DIR) with the [employer] ([employer]). RADIATION OPTIMIZATION: All CT scans at this facility use at least one of these dose optimization te chniques: automated exposure control; mA and/or kV adjustment per patient size (includes targeted exa ms where dose is matched to clinical indication); or iterative reconstruction.
[2024-11-22 17:09] LABS: Abs Immature Grans 0.08 10^3/uL (0.0-0.06); Absolute Monocyte Count 0.81 10^3/uL (0.1-0.8); Absolute Neutrophil Count 13.57 10^3/uL (1.2-6.7); Basophils % 0.3 %; Eosinophils % 0.1 %; HCT 35.1 % (36.0-46.0); HGB 11.2 g/dL (11.2-15.7); Immature Grans % 0.5 %; Lymphocytes % 4.6 %; MCH 27.7 pg (27.0-33.0); MCHC 31.9 % (32.0-36.0); MCV 87 fL (80-95); MPV 9.3 fL (8.0-11.0); Monocytes % 5.3 %; Neutrophils % 89.2 %; Platelet Count 288 10^3/uL (130-400); RBC 4.04 10^6/uL (3.93-5.22); RDW 13.8 % (11.7-14.6); WBC 15.21 10^3/uL (4.4-10.8)
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
[2024-11-22 17:16] LABS: Absolute Basophil Count 0.05 10^3/uL (0.0-0.2); Absolute Eosinophil Count 0.02 10^3/uL (0.0-0.7)
[2024-11-22 17:29] LABS: ALT 17 U/L (14-59); AST 29 U/L (15-37); Albumin 3.3 g/dL (3.4-5.0); Alkaline Phosphatase 127 U/L (46-116); BUN 43 mg/dL (7-18); Bilirubin, Total 0.76 mg/dL (0.2-1.0); CREATININE 1.5 mg/dL (0.55-1.02); Calcium 8.2 mg/dL (8.5-10.1); Chloride 107 mmol/L (98-107); Creatine Kinase 508 U/L (26-192); Estimated GFR 35.89 (mL/min/1.73m2); Glucose 83 mg/dL (74-106); Potassium 3.5 mmol/L (3.5-5.1); Sodium 146 mmol/L (136-145); Total Protein 6.7 g/dL (6.4-8.2)
[2024-11-22 17:34] LABS: Troponin I 222 ng/L (<or=51)
[2024-11-22 17:57] LABS: Bilirubin Negative (Negative); Blood Small (Negative); Clarity Clear (Clear); Glucose Negative (Negative); Ketones 15 mg/dL (Negative); Leukocyte Esterase Trace (Negative); Nitrite Negative (Negative); Urobilinogen 0.2 mg/dL (Up to 0.2)
[2024-11-22 18:07] LABS: Bacteria Rare HPF (Negative); C & S Indicated? No; Casts 0-2 Hyaline LPF (Negative); Crystals Negative HPF (Negative); Epithelial Cells Rare HPF (Negative); Mucus Negative (Negative); Other Cells Few Renal (Negative); WBC 0-2 HPF (0-5)
[2024-11-22] MEDS: Omnipaque 350 MG/ML 100 ML BTL IJ (18:09)
[2024-11-22] MEDS: Normal Saline - Diluent 50 ML VIAL IJ (18:10)
[2024-11-22 18:11] LABS: *AMPHETAMINES SCREEN URINE Negative (Negative); *BARBITURATES SCREEN URINE Negative (Negative); *BENZODIAZEPINES SCREEN URINE Negative (Negative); Cannabinoids THC Negative (Negative); Cocaine Screen,Urine Negative (Negative); METHADONE URINE SCREEN Negative (Negative); OPIATES URINE SCREEN Negative (Negative)
[2024-11-22 18:12] LABS: Tricyclic Antidepressants Negative (Negative)
[2024-11-22 18:20] LABS: ETHANOL BLOOD < 3.0 mg/dL (<10)
[2024-11-22 18:39] LABS: Troponin I 332 ng/L (<or=51)
--- NOTE | 2024-11-22 18:43 | DI.VRAD_ITS ---
PROCEDURE INFORMATION: Exam: CT Head Without Contrast Exam date and time: 11/22/2024 6:22 PM Age: 74 years old Clinical indication: Other: AMS, found outside hypothermic TECHNIQUE: Imaging protocol: Computed tomography of the head without contrast. COMPARISON: CT HEAD CERVICAL SPINE WO 10/30/2024 3:20 PM FINDINGS: Brain: Prominence of cerebral sulci reflects diffuse cerebral atrophy. Poorly marginated hypodensities seen throughout the deep and periventricular white matter of both cerebral hemispheres are consistent with microvascular ischemic changes. A few punctate calcifications are again seen scattered throughout the subarachnoid spaces of both cerebral hemispheres. Brainstem and cerebellum are unremarkable and there is no evidence of acute transcortical infarction or recent intracranial hemorrhage. Cerebral ventricles: No midline shift or hydrocephalus. Paranasal sinuses: Grossly clear throughout. Mastoid air cells: Grossly clear bilaterally. Bones: Bony calvarium and skull base are intact and no acute fractures are detected. Soft tissues: Unremarkable. IMPRESSION: Cerebral atrophy and underlying microvascular ischemic changes with no evidence of acute transcortical infarction, recent intracranial hemorrhage or hydrocephalus. No acute intracranial process is detected. PROCEDURE INFORMATION: Exam: CT Cervical Spine Without Contrast Exam date and time: 11/22/2024 6:22 PM Age: 74 years old Clinical indication: Other: AMS, found outside hypothermic TECHNIQUE: Imaging protocol: Computed tomography of the cervical spine without contrast. COMPARISON: CT HEAD CERVICAL SPINE WO 10/30/2024 3:20 PM FINDINGS: Bones: There is arthrosis involving the anterior atlantodental interval with loss of joint space and marginal osteophyte formation and the odontoid process is grossly intact. There are mild anterolistheses of C3 upon C4, C4 upon C5, C5 upon C6 and C7 upon T1 and there is gross preservation of vertebral body height throughout cervical levels with no vertebral body fractures or other significant subluxations detected. Changes of facet arthropathy are most advanced on the right between C2 and C6 and on the left between C4 and C6 with no acute fractures detected involving the posterior elements of the cervical spine. Discs/Spinal canal/Neural foramina: Loss of disc space height with posterior osteocartilaginous ridging is most significant at C6-C7 resulting in canal narrowing and possible mass-effect upon the ventral cord which could be better evaluated with MRI. Uncovertebral and facet changes produce multilevel foraminal distortions/narrowings throughout cervical levels. Lungs: No pneumothorax or consolidation detected at the lung apices. Soft tissues: Unremarkable. IMPRESSION: Cervical spondylosis with central canal and foraminal narrowing as above. No acute cervical fractures are detected. Dictated and Authenticated by: Adonis Collins MD. Ordering:GUCCI Givens MD
--- NOTE | 2024-11-22 18:51 | DI.VRAD_ITS ---
PROCEDURE INFORMATION: Exam: CT Chest With Contrast; Diagnostic Exam date and time: 11/22/2024 6:26 PM Age: 74 years old Clinical indication: Other: AMS, found outside hypothermic TECHNIQUE: Imaging protocol: Diagnostic computed tomography of the chest with contrast. Contrast material: OMNIPAQUE 350; Contrast volume: 100 ml; Contrast route: INTRAVENOUS (IV); COMPARISON: CR XR CHEST 2V PA LATERAL 11/08/2024 3:00 PM FINDINGS: Tubes, catheters and devices: Left chest wall battery pack for a left-sided presumed neurostimulator, intact as visualized. Thyroid: Subcentimeter right thyroid nodule Statistically likely benign. Lungs: Motion artifact in the lungs. A few scattered subcentimeter pulmonary nodules. Follow-up as per institutional protocol. No airspace consolidation. Scattered microatelectasis. Pleural spaces: No pneumothorax. No pleural effusion. Heart: Mild cardiomegaly. Lymph nodes: No enlarged lymph nodes. Vasculature: No aortic aneurysm. Bones/joints: Chronic bony changes with no acute fracture. Soft tissues: No suspicious lesions. IMPRESSION: 1. No acute findings. 2. Incidental findings as described. PROCEDURE INFORMATION: Exam: CT Abdomen And Pelvis With Contrast Exam date and time: 11/22/2024 6:26 PM Age: 74 years old Clinical indication: Other: AMS, found outside hypothermic TECHNIQUE: Imaging protocol: Computed tomography of the abdomen and pelvis with contrast. Contrast material: OMNIPAQUE 350; Contrast volume: 100 ml; Contrast route: INTRAVENOUS (IV); COMPARISON: CT ABDOMEN PELVIS W 09/22/2023 11:59 AM FINDINGS: Liver: No mass. Gallbladder and biliary ducts: No calcified stones. No gross ductal dilation. Pancreas: No ductal dilation. No mass . Spleen: No splenomegaly or suspicious lesions. Adrenal glands: No suspicious mass. Kidneys and ureters: Benign-appearing renal cyst(s) and/or probable cyst(s). No renal masses or hydronephrosis bilaterally. Stomach and bowel: Sigmoid colon anastomosis, satisfactory appearance. Submucosal fat deposition in the colon, likely habitus and or diet related. Colonic diverticulosis without diverticulitis. No focal pathology in the small bowel. Appendix: No evidence of appendicitis. Intraperitoneal space: No free air. No significant fluid collection. Vasculature: No abdominal aortic aneurysm. Lymph nodes: No significantly enlarged lymph nodes. Urinary bladder: Park catheter in a decompressed urinary bladder. No urinary bladder wall thickening. Reproductive: Unremarkable as visualized. Bones/joints: Chronic bony changes with no acute fracture. Soft tissues: No suspicious lesions. IMPRESSION: 1. No acute findings. 2. Park catheter in a decompressed urinary bladder. 3. Incidental findings as described. Dictated and Authenticated by: Maame Espinoza MD. Ordering:GUCCI Givens MD
[2024-11-22 20:27] LABS: Troponin I 502 ng/L (<or=51)
--- NOTE | 2024-11-22 21:30 | W.PM.HP.N ---
Date of service: 11/22/24 Time of Service: 21:30 Assessment and Plan Assessment and plan (1) Hypothermia due to exposure: Start date: 11/22/24 Status: Acute Assessment and plan: This is a 74-year-old lady who was found hypothermic and confused outside of her home at the end of her driveway in a bank of snow and wet clothes without blood with her jacket. She has been there possibly most of the day. Her saw her last in the morning and he was found asleep in the house. Both are poor historians. They felt [place] and she has been adjust her main language with some language barrier. Patient does have a history of seizures and could have had a partial complex seizure with increased confusion. She also has a history of frequent falls. She has been warmed slowly and is shivering with elevated troponin which is most likely secondary to stress rather than acute ischemic cardiac disease. Cardiology does not recommend IV heparin or aspirin at this time. Patient will be on Lovenox prophylaxis for DVT. Cardiac monitoring while continuing to warm and follow-up echocardiogram and EKG in the morning. Patient also manifested second-degree soft tissue injury of her hands which appears stable but painful. Surgery could be consulted but has nothing to debride at this time. Patient is a DNR/DNI by previous records but this should be updated with a COLST form by her PCP.. (2) Frostbite of both hands: Start date: 11/22/24 Status: Acute Assessment and plan: Over all fingers and partially over the dorsal and palmar hand distally over the metacarpal areas with some barely bullae formation but no change in color or evidence of deeper tissue damage, this appears to be a deep, second-degree frostbite. Consider surgical consultation if worsens. (3) Complex partial seizures with consciousness impaired: Status: Chronic Assessment and plan: Patient is a multiple medications but compliance may be an issue. Continue outpatient prescribed medications except for clonazepam as inpatient (4) Elevated troponin level not due myocardial infarction: Start date: 11/22/24 Status: Acute Assessment and plan: [facility] [place] cardiology, Dr. Lundy was consulted by the ED physician and he recommended no interventions for acute coronary syndrome but rather to trend troponins as a possible consequence of stress by her acute and prolonged hypothermia. Follow-up echocardiogram in the morning with EKG. If worsening troponins or symptoms of acute ischemic changes, consider reconsulting cardiology and IV heparin. For now Lovenox will be used for DVT prophylaxis and aspirin was not advised by cardiology. She has had a history of chest pain of uncertain etiology in the past but no overt CAD. (5) CKD (chronic kidney disease): Status: Chronic Assessment and plan: Probably exacerbated with monitoring. Patient does have mild hypernatremia with possible dehydration with her acute presentation of hypothermia and prolonged period outside. Her anion gap, CPK and creatinine elevated as well. Her rhabdomyolysis is mild and should be cleared with IV fluid resuscitation as should her anion gap normalized. Hopefully she can return to her baseline creatinine level. She will be treated with IV lactated Ringer's for fluid resuscitation. (6) Memory impairment: Status: Chronic Assessment and plan: Patient does have what appears to be more than just seizure related memory loss. She does not have an overt diagnosis of dementia. (7) Frequent falls: Status: Chronic Assessment and plan: Most likely secondary to deconditioning and memory loss but also she does have partial complex seizures. (8) Anxiety and depression: Status: Chronic Assessment and plan: Patient does have clonazepam on medication list but this will not be continued during his hospital stay. Outpatient evaluation should be possibly discontinued his medication with increased sedation and memory impairment. Also this may increase falls. History of Present Illness History of Present Illness Chief Complaint: Patient found cold and outside for most of the day with confusion. Narrative: This is a 74-year-old female patient who is from [facility] originally with her and speaks mostly Icelandic. She has a history of partial complex seizures and is on multiple medications. She is found outside of her home with a end of her driveway and is no back by recycling collections driver by the and was brought to the emergency room for evaluation for hypothermia. Her was in the house in the sleep and was not aware of her being outside. He also is a poor historian and slightly confused. She gives a vague history. She does know that she was outside with her jacket on and fell and is no unable to get up without gloves on. Her hands were very cold but her feet did have boots on and were more warm. She was very cold when found in the low 90 ?F range but warmed quickly without any significant cardiac dysrhythmia. She did have an elevated troponin which will be trended with cardiology at [facility] recommending trending with echocardiogram and repeat EKG in the morning after stabilized. They also did not recommend aspirin. Once admitted she did manifest swelling of her hands over all fingers and part of the hand with early bullae formation but no change in color or darkening and the patient was having pain indicating this was on the third-degree frostbite. This will be observed. Her CPK was elevated and creatinine was slightly elevated as was the BUN, sodium and anion gap with patient to have IV hydration. CPK was less than 1000. Patient is a full code. Review of Systems Narrative: 13 point review of systems otherwise unrevealing or unobtainable with patient's memory impairment and being a poor historian. Her is also a poor historian. PFSH All Active Problems (Updated 11/23/24 @ 05:45 by Sushant Gilbert) Frostbite of both hands (Acute) Elevated troponin level not due myocardial infarction (Acute) Complex partial seizures with consciousness impaired (Chronic) Memory impairment (Chronic) Hypothermia due to exposure (Acute) Chest pain of uncertain etiology (Acute) Fall due to ice or snow (Acute) Joint pain (Acute) Fall (Acute) Status post dilation and curettage (Acute) Thickened endometrium (Acute) Postmenopausal bleeding (Acute) Abdominal pain (Acute) Chronic pain of both knees (Acute) Telephone bilingual interpreter service required (Acute) CKD (chronic kidney disease) (Chronic) Osteoarthritis (Chronic) GERD (gastroesophageal reflux disease) (Chronic) Frequent falls (Chronic) IFG (impaired fasting glucose) (Chronic) Anxiety and depression (Chronic) Telogen effluvium (Chronic) [facility] Derm Partial symptomatic epilepsy with complex partial seizures, intractable, without status epilepticus (Chronic) [facility] [place] [facility] Neuro Implanted stimulator 2008 Microscopic hematuria (Chronic 03/25/17) 02/2017 urology consultation: negative cystoscopy with retrograde pyelogram; Recommend annual UAs with repeat workup in 3-5 years if persistent; 10/2022 UA neg for blood Memory loss (Chronic) neurology clinic note dated 09/28/17 Low back pain (Acute 07/10/14) XRay [facility] 2.2013: DJD, mild anterolithesis L4 against L5 Irritable bowel syndrome (Chronic 03/23/12) Dr. Iglesias GI [facility] [facility] Hyperlipidemia (Chronic 03/23/12) 03/2019 labs: 10-year ASCVD risk = ~14.5% --> started on moderate intensity statin therapy Headache (Acute 03/23/12) Dyspepsia (Acute 05/03/14) GI [facility] [place] EGD 03/2009 Hpylori treated and resolved Chronic constipation (Chronic 05/27/17) [facility] [place] [facility] GI Medical History (Updated 11/23/24 @ 05:45 by Sushant Gilbert) Elevated troponin Sebaceous cyst Renal cyst 08/20/2020 US: simple cyst Cyst of breast, right, solitary (03/2018) Tubular adenoma of colon (07/12/17) descending colon Liver function abnormality (05/03/14) GI [facility] neg CT, lab w/u; ? from antiseizure meds Chest pain, unspecified (05/09/13) nl MPI 05/07/13 EF 71%; later thought to be 2/2 GERD Colon cancer Surgical History Hx of colonoscopy (~02/21/24) [facility] Gandhi H/O esophagogastroduodenoscopy (~02/21/24) [facility] [place], Dr Gandhi-7mm soft nodule unchanged from 2020 Colectomy (~1994) For colon CA Social History Smoking/Tobacco Use Status: Never Smoking risk assessment performed?: Yes Alcohol Intake: never Drug use: Never Substance use type: does not use Caregiver/Support person: No Household members: spouse Housing: apartment Communication Needs: Language Barriers Current gender identity: female What type of physical activity do you participate in: none Do you feel safe at home: Yes (pt reports she feels safe at home) Do you feel safe in your relationship?: Yes History History 2 Para 2 Hx # Term Pregnancies 2 Multiple births Hx # Pregnancies Ectopic pregnancies AB induced Hx Number of Living Children 2 AB spontaneous Meds Allergies and Home Medications Allergies Allergy/AdvReac Type Severity Reaction Status Date / Time No Known Allergies Allergy Verified 11/22/24 20:06 Home Medications ?Medication ?Instructions ?Recorded ?Confirmed ?Type blood sugar diagnostic (Blood #100 ea 06/20/19 11/08/24 Rx Glucose Test strips) blood-glucose meter #1 ea 06/20/19 11/08/24 Rx lancets #100 ea 06/20/19 11/08/24 Rx lamotrigine 100 mg tablet 100 mg PO BID 09/11/20 11/22/24 History (Lamictal) clonazepam 0.5 mg tablet See Rx Instructions PO BID 12/30/20 11/22/24 History acetaminophen 500 mg tablet 1,000 mg (2 x 500 mg) PO TID pain 12/01/22 11/22/24 Rx #540 tab-caps clobazam 10 mg tablet 10 mg PO QHS 06/04/24 11/22/24 History divalproex 250 mg tablet,delayed 250 mg PO DAILY 11/08/24 11/22/24 History release Exam Narrative Exam Narrative: General: Patient appears appropriate for age, she has a heavy [place]ic accent. She has no acute distress but is slightly anxious. She does have a baseline tremor which is not on her problem list but she does have partial complex seizures as a history. She is alert and oriented at least to person and place. HEENT: Normocephalic, eyes with pupils equal and reactive to light symmetrically, extraocular movement intact and sclera anicteric. Oropharynx with moist mucosa and fair dentition. Neck: Supple without JVD. Back: Kyphotic without CVA tenderness Lungs: Clear to auscultation and percussion with no focalizing rales or rhonchi. Breast: Exam deferred. Heart: Regular rate and rhythm with no murmurs gallops appreciated. Abdomen: Obese contour with moderate pannus, tender to palpation of the left abdomen with patient states is chronic after her colon cancer with slight guarding but no rebound. No palpable hepatosplenomegaly. Bowel sounds positive in all quadrants. (Patient states that she moves her bowels normally without bloating or pain). Genitalia/rectal: Exam deferred. Patient does have a Park catheter in place which was used for warming and monitoring temperature. Extremities: Without clubbing, cyanosis or grossly pitting edema. Patient appears to have chronic nonpitting edema. Both hands have moderate swelling with decreased ability to flex or extend with bullae formation but no darkening or drainage and extremely tender finger to palpation. Radial pulses are intact. Fair capillary refill. Skin: Normal color, warm and dry. There is swelling over hands without skin breakdown but with bullae formation. Neuro: Cranial nerves II through XII intact, no focalized motor deficits. Diffuse fine tremor. Psych: Anxious affect with normal mood. No abnormal thought processes. Remote memory intact and recent memory less intact. Results Imaging Imaging Studies: Exam: CT Head Without Contrast Exam date and time: 11/22/2024 6:22 PM Age: 74 years old Clinical indication: Other: AMS, found outside hypothermic . COMPARISON: CT HEAD CERVICAL SPINE WO 10/30/2024 3:20 PM FINDINGS: Brain: Prominence of cerebral sulci reflects diffuse cerebral atrophy. Poorly marginated hypodensities seen throughout the deep and periventricular white matter of both cerebral hemispheres are consistent with microvascular ischemic changes. A few punctate calcifications are again seen scattered throughout the subarachnoid spaces of both cerebral hemispheres. Brainstem and cerebellum are unremarkable and there is no evidence of acute transcortical infarction or recent intracranial hemorrhage. Cerebral ventricles: No midline shift or hydrocephalus. Paranasal sinuses: Grossly clear throughout. Mastoid air cells: Grossly clear bilaterally. Bones: Bony calvarium and skull base are intact and no acute fractures are detected. Soft tissues: Unremarkable. IMPRESSION: Cerebral atrophy and underlying microvascular ischemic changes with no evidence of acute transcortical infarction, recent intracranial hemorrhage or hydrocephalus. No acute intracranial process is detected. PROCEDURE INFORMATION: Exam: CT Cervical Spine Without Contrast Exam date and time: 11/22/2024 6:22 PM Age: 74 years old Clinical indication: Other: AMS, found outside hypothermic COMPARISON: CT HEAD CERVICAL SPINE WO 10/30/2024 3:20 PM FINDINGS: Bones: There is arthrosis involving the anterior atlantodental interval with loss of joint space and marginal osteophyte formation and the odontoid process is grossly intact. There are mild anterolistheses of C3 upon C4, C4 upon C5, C5 upon C6 and C7 upon T1 and there is gross preservation of vertebral body height throughout cervical levels with no vertebral body fractures or other significant subluxations detected. Changes of facet arthropathy are most advanced on the right between C2 and C6 and on the left between C4 and C6 with no acute fractures detected involving the posterior elements of the cervical spine. Discs/Spinal canal/Neural foramina: Loss of disc space height with posterior osteocartilaginous ridging is most significant at C6-C7 resulting in canal narrowing and possible mass-effect upon the ventral cord which could be better evaluated with MRI. Uncovertebral and facet changes produce multilevel foraminal distortions/narrowings throughout cervical levels. Lungs: No pneumothorax or consolidation detected at the lung apices. Soft tissues: Unremarkable. IMPRESSION: Cervical spondylosis with central canal and foraminal narrowing as above. No acute cervical fractures are detected. Exam: CT Chest With Contrast; Diagnostic Exam date and time: 11/22/2024 6:26 PM Age: 74 years old Clinical indication: Other: AMS, found outside hypothermic COMPARISON: CR XR CHEST 2V PA LATERAL 11/08/2024 3:00 PM FINDINGS: Tubes, catheters and devices: Left chest wall battery pack for a left-sided presumed neurostimulator, intact as visualized. Thyroid: Subcentimeter right thyroid nodule Statistically likely benign. Lungs: Motion artifact in the lungs. A few scattered subcentimeter pulmonary nodules. Follow-up as per institutional protocol. No airspace consolidation. Scattered microatelectasis. Pleural spaces: No pneumothorax. No pleural effusion. Heart: Mild cardiomegaly. Lymph nodes: No enlarged lymph nodes. Vasculature: No aortic aneurysm. Bones/joints: Chronic bony changes with no acute fracture. Soft tissues: No suspicious lesions. IMPRESSION: 1. No acute findings. 2. Incidental findings as described. PROCEDURE INFORMATION: Exam: CT Abdomen And Pelvis With Contrast Exam date and time: 11/22/2024 6:26 PM Age: 74 years old Clinical indication: Other: AMS, found outside hypothermic COMPARISON: CT ABDOMEN PELVIS W 09/22/2023 11:59 AM FINDINGS: Liver: No mass. Gallbladder and biliary ducts: No calcified stones. No gross ductal dilation. Pancreas: No ductal dilation. No mass . Spleen: No splenomegaly or suspicious lesions. Adrenal glands: No suspicious mass. Kidneys and ureters: Benign-appearing renal cyst(s) and/or probable cyst(s). No renal masses or hydronephrosis bilaterally. Stomach and bowel: Sigmoid colon anastomosis, satisfactory appearance. Submucosal fat deposition in the colon, likely habitus and or diet related. Colonic diverticulosis without diverticulitis. No focal pathology in the small bowel. Appendix: No evidence of appendicitis. Intraperitoneal space: No free air. No significant fluid collection. Vasculature: No abdominal aortic aneurysm. Lymph nodes: No significantly enlarged lymph nodes. Urinary bladder: Park catheter in a decompressed urinary bladder. No urinary bladder wall thickening. Reproductive: Unremarkable as visualized. Bones/joints: Chronic bony changes with no acute fracture. Soft tissues: No suspicious lesions. IMPRESSION: 1. No acute findings. 2. Park catheter in a decompressed urinary bladder. 3. Incidental findings as described. Labs 11/22/24 17:01 11/22/24 17:01 Labs: Laboratory Results - last 24 hr 11/22/24 11/22/24 11/22/24 16:39 17:01 17:45 WBC 15.21 H RBC 4.04 Hgb 11.2 Hct 35.1 L MCV 87 MCH 27.7 MCHC 31.9 L RDW 13.8 Plt Count 288 MPV 9.3 Immature Gran % 0.5 Neutrophils % 89.2 Lymphocytes % 4.6 Monocytes % 5.3 Eosinophils % 0.1 Basophils % 0.3 Nucleated RBC % 0.0 Absolute Neutrophils 13.57 H Absolute Lymphocytes 0.70 L Absolute Monocytes 0.81 H Absolute Eosinophils 0.02 Absolute Basophils 0.05 Sodium 146 H Potassium 3.5 Chloride 107 Carbon Dioxide 26.0 Anion Gap 13.0 H BUN 43 H Creatinine 1.5 H Est GFR (CKD-EPI 2020) 35.89 Glucose 83 Calcium 8.2 L Total Bilirubin 0.76 AST 29 ALT 17 Alkaline Phosphatase 127 H Creatine Kinase 508 H Troponin I Cancelled 222 H* Total Protein 6.7 Albumin 3.3 L Urine Color Yellow Urine Clarity Clear Urine pH 6.0 Ur Specific Grover 1.020 Urine Protein 30 H Urine Ketones 15 H Urine Blood Small H Urine Nitrite Negative Urine Bilirubin Negative Urine Urobilinogen 0.2 Ur Leukocyte Esterase Trace H Urine RBC 5-10 H Urine WBC 0-2 Ur Epithelial Cells Rare Urine Crystals Negative Urine Bacteria Rare Urine Casts 0-2 Hyaline Urine Mucus Negative Urine Other Few Renal Ur Culture Indicated? No Urine Glucose Negative Urine Opiates Screen Negative Urine Methadone Screen Negative Ur Barbiturates Screen Negative Ur Tricyclics Screen Negative Ur Amphetamines Screen Negative U Benzodiazepines Scrn Negative Urine Cocaine Screen Negative Ur THC Screen Negative Ethyl Alcohol < 3.0 11/22/24 11/22/24 18:14 19:59 WBC RBC Hgb Hct MCV MCH MCHC RDW Plt Count MPV Immature Gran % Neutrophils % Lymphocytes % Monocytes % Eosinophils % Basophils % Nucleated RBC % Absolute Neutrophils Absolute Lymphocytes Absolute Monocytes Absolute Eosinophils Absolute Basophils Sodium Potassium Chloride Carbon Dioxide Anion Gap BUN Creatinine Est GFR (CKD-EPI 2020) Glucose Calcium Total Bilirubin AST ALT Alkaline Phosphatase Creatine Kinase Troponin I 332 H* 502 H* Total Protein Albumin Urine Color Urine Clarity Urine pH Ur Specific Grover Urine Protein Urine Ketones Urine Blood Urine Nitrite Urine Bilirubin Urine Urobilinogen Ur Leukocyte Esterase Urine RBC Urine WBC Ur Epithelial Cells Urine Crystals Urine Bacteria Urine Casts Urine Mucus Urine Other Ur Culture Indicated? Urine Glucose Urine Opiates Screen Urine Methadone Screen Ur Barbiturates Screen Ur Tricyclics Screen Ur Amphetamines Screen U Benzodiazepines Scrn Urine Cocaine Screen Ur THC Screen Ethyl Alcohol Last Vital Signs Temp 37.1 C 11/22/24 20:46 Pulse 71 11/22/24 20:46 Resp 15 11/22/24 20:46 BP 135/40 L 11/22/24 20:46 Pulse Ox 98 11/22/24 20:46 Time Spent Time spent with Patient: >75 minutes Time was spent: preparing to see the patient(eg.review tests), obtaining and/or reviewing separately otained hiistory, ordering medications,tests, procedures, indepentently interpreting results, counseling the patient and care coordination
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
[2024-11-22 23:09] LABS: COVID-19 PCR Negative (Negative); Influenza A PCR Negative (Negative); Influenza B PCR Negative (Negative); RSV PCR Negative (Negative)
[2024-11-22 23:16] LABS: Source Nasopharynx
[2024-11-23] VITALS (52 sets, daily range): BP systolic 66–169; BP diastolic 43–120; PULSE 66–118; RESP 12–47; TEMP 36.4–37.9; O2SAT 91–100
[2024-11-23] MEDS: Clobazam 10mg TAB 10 MG PO ×2 (00:43→20:25)
[2024-11-23 06:53] LABS: HCT 36.4 % (36.0-46.0); HGB 11.7 g/dL (11.2-15.7); MCH 27.7 pg (27.0-33.0); MCHC 32.1 % (32.0-36.0); MCV 86 fL (80-95); MPV 9.7 fL (8.0-11.0); Platelet Count 301 10^3/uL (130-400); RBC 4.23 10^6/uL (3.93-5.22); RDW 13.8 % (11.7-14.6); RDW-SD 43.3 fL; WBC 10.84 10^3/uL (4.4-10.8)
[2024-11-23 07:13] LABS: ALT 22 U/L (14-59); AST 54 U/L (15-37); Albumin 3.3 g/dL (3.4-5.0); Alkaline Phosphatase 126 U/L (46-116); Anion Gap 9.4 mmol/L (3-11); BUN 31 mg/dL (7-18); Bilirubin, Total 0.82 mg/dL (0.2-1.0); CO2 28.6 mmol/L (21.0-32.0); CREATININE 1.1 mg/dL (0.55-1.02); Calcium 8.9 mg/dL (8.5-10.1); Chloride 104 mmol/L (98-107); Estimated GFR 52.08 (mL/min/1.73m2); Glucose 88 mg/dL (74-106); Sodium 142 mmol/L (136-145); Total Protein 6.8 g/dL (6.4-8.2)
[2024-11-23 07:14] LABS: Potassium 2.8 mmol/L (3.5-5.1)
[2024-11-23 07:20] LABS: TSH 1.54 uIU/mL (0.36-3.74)
[2024-11-23 07:24] LABS: Troponin I 669 ng/L (<or=51)
[2024-11-23] MEDS: Lactated Ringers 1,000 ML 125 ML IV ×2 (07:30→17:08)
[2024-11-23 07:33] LABS: Creatine Kinase 1398 U/L (26-192)
[2024-11-23] MEDS: Potassium Chloride Liquid 20 MEQ PKT 40 MEQ PO ×3 (08:24→20:24)
[2024-11-23] MEDS: lamoTRIgine 100 MG TAB PO ×2 (08:25→20:25)
[2024-11-23] MEDS: Acetaminophen 500 MG TAB 1000 MG PO ×3 (08:25→20:24)
[2024-11-23] MEDS: Divalproex 250 MG TABEC PO (08:25)
[2024-11-23] MEDS: POTASSIUM CHLORIDE 20 MEQ/100 ML BAG 50 MEQ IV_INF (08:27)
[2024-11-23] MEDS: Enoxaparin 40 MG/0.4 ML SYR SC (08:27)
[2024-11-23] MEDS: Normal Saline Flush 10 ML SYR IVP ×2 (08:30→20:25)
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
--- NOTE | 2024-11-23 10:30 | DI.US_ITS ---
APPROVED REPORT EXAM: Comprehensive 2D, Doppler, and color-flow Echocardiogram Patient Location: In-Patient Room/Bed: 219 Indications: Elevated troponin after hypothermia even Other Information Study Quality: Technically Difficult. Technically limited study due to body habitus, inability to pos ition patient. Conclusion Technically difficult study Normal left ventricular wall thickness chamber size and systolic function. No segmental wall motion abnormalities are identified. EF biplane is 64% Normal right ventricular size and function Both atria are normal in size Aortic valve is sclerotic. There is no aortic stenosis or regurgitation No additional significant valvular disease is identified Wall motion Left Ventricle The left ventricle is grossly normal size. Unable to obtain measurements due to vertical orientation. The left ventricular systolic function is normal. The left ventricular ejection fraction is within t he normal range. There is normal LV segmental wall motion. There is no ventricular septal defect visu alized. LVEF is 63%. Right Ventricle The right ventricle is normal size. The right ventricular systolic function is normal. Atria The left atrium size is normal. The right atrium size is normal. The interatrial septum is intact wit h no evidence for an atrial septal defect. Aortic Valve Aortic valve is sclerotic Number of aortic valve leaflets could not be assessed. There is no aortic v alvular stenosis. No aortic regurgitation is present. Mitral Valve The mitral valve is normal in structure. No evidence of mitral valve stenosis. There is no mitral doyle ve regurgitation noted. Tricuspid Valve The tricuspid valve is normal in structure. There is no tricuspid valve stenosis. Trace tricuspid reg urgitation. Unable to assess PA pressure. Pulmonic Valve Pulmonic valve is not well visualized. Great Vessels The aortic root is normal in size. Ascending aorta is not well visualized. Aortic arch is not well vi sualized. The IVC collapses <50% with inspiration. Pericardium There is no pericardial effusion. 2D Dimensions Ao Root d 2.29 cm F: 2.7 - 3.3 M-Mode TAPSE 2.06 cm (M/F) >1.7 Auto EF LV EDV A4C 85.9 mL LV EDV A2C 58.8 mL LV EDV BP 74.8 mL LV ESV A4C 31.4 mL LV ESV A2C 21.6 mL LV ESV BP 27.2 mL LVEF(%) A4C 63.4 % LVEF(%) A2C 63.2 % LVEF(%) BP 63.6 % LV SV A4C 54.5 ml LV SV A2C 37.1 ml LV SV BP 47.6 ml LV CO A4C 3.9 L/min LV CO A2C 2.8 L/min LV CO BP 3.4 L/min HR A4C 72.15 BPM HR A2C 75.95 BPM LV EDV Index (BP) LA Volume LA Length A4C 3.0 cm LA Length A2C 3.3 cm LA Area A4C s 8.07 cm2 LA Area A2C s 9.29 cm2 LA Vol A4C A-L 18.15 mL LA Vol A2C A-L 22.12 mL LA Vol Biplane A-L 20.9 mL LA Vol/BSA A4C A-L LA Vol/BSA A2C A-L LA Vol/BSA BP A-L 12.5 mL/m2 LA Vol A4C MOD 16.9 mL LA Vol A2C MOD 21.7 mL LA Vol BP MOD 18.7 mL RA Volume RA Area A4C 5.1 cm2 RA ESV A4C (A-L) 8.0mL RA Vol/BSA A4C A-L RA Length A4C 2.7 cm RA ESV A4C (MOD) 7.2mL LV Diastology MV E' medial 0.065 (>0.07 m/s) MV E Vmax 0.99 (0.4-1.3 m/s) MV E/E' MED 15.19 (<14) MV A Vmax 1.35 (0.4-1.3 m/s) MV E' lateral 0.062 (>0.1 m/s) E/A Ratio 0.7 MV E/E' LAT 16.13 (<14) MV E' Average 0.063 m/s MV E/E'(average) 15.65 Aortic Valve AoV Vmax 1.27 m/s LVOT Vmax 1.28 m/s AoV Peak Grad 6.4 mmHg LVOT Peak Grad 6.6 mmHg AoV Area (Vmax) 2.11 cm2 LVOT VTI 0.294 m AoV VTI 0.293 m LVOT Mean Grad 3.6 mmHg AoV Mean Eric. 1.02 m/s LVOT SV 61.43 mL AoV Mean Grad 4.3 mmHg LVOT Diam s 1.60 cm AoV Area (VTI) 2.09 cm2 AV Regurg Peak Gr. 6.42 mmHg Velocity Ratio 1.01 Mitral Valve MV DT 244 (160-240 msec) MV Vmax TIPS 1.36 m/s MV Mean Grad 3.0 (<2mmHg) MV VTI 0.352 m
[2024-11-23] MEDS: Hyaluronidase 150 UNITS VIAL 15 UNITS SC (11:24)
--- NOTE | 2024-11-23 14:29 | CHAPLAIN ---
Alba was resting in bed when I visited. She showed me her swollen hands and fingers. She apparently fell at the end of her driveway yesterday morning and was found there later in the day. She was brought to the ED and treated for hypothermia and frostbite. She told me that her hands are painful. When I asked if she is in touch with family, she said my family in [place]? She lives in [facility] and her daughter has been here with her. I didn't meet her daughter today. I didn't understand everything that Alba said, but she I believe she was explaining about her son's suicide more than 20 years ago, and that he was 28 and had medical issues since he was 8.
[2024-11-23 16:58] LABS: Potassium 2.9 mmol/L (3.5-5.1)
[2024-11-23 18:53] LABS: Troponin I 572 ng/L (<or=51)
[2024-11-23 20:17] LABS: VALPROIC ACID 18.8 ug/mL
[2024-11-23] MEDS: Potassium Chloride 10 MEQ CAPCR 20 MEQ PO (20:24)
[2024-11-24] VITALS (19 sets, daily range): BP systolic 103–146; BP diastolic 45–129; PULSE 56–103; RESP 9–25; TEMP 36.4–37.3; O2SAT 95–96
[2024-11-24 07:01] LABS: HCT 32.4 % (36.0-46.0); HGB 10.6 g/dL (11.2-15.7); MCH 27.9 pg (27.0-33.0); MCHC 32.7 % (32.0-36.0); MCV 85 fL (80-95); MPV 9.9 fL (8.0-11.0); Platelet Count 277 10^3/uL (130-400); RDW 14.1 % (11.7-14.6); RDW-SD 44.1 fL; WBC 5.98 10^3/uL (4.4-10.8)
[2024-11-24 07:21] LABS: Creatine Kinase 657 U/L (26-192)
[2024-11-24 07:24] LABS: ALT 20 U/L (14-59); AST 41 U/L (15-37); Albumin 2.7 g/dL (3.4-5.0); Alkaline Phosphatase 104 U/L (46-116); Anion Gap 6.1 mmol/L (3-11); BUN 22 mg/dL (7-18); Bilirubin, Total 0.59 mg/dL (0.2-1.0); CO2 26.9 mmol/L (21.0-32.0); Calcium 8.5 mg/dL (8.5-10.1); Chloride 111 mmol/L (98-107); Estimated GFR 58.39 (mL/min/1.73m2); Glucose 94 mg/dL (74-106); Potassium 4.1 mmol/L (3.5-5.1); Sodium 144 mmol/L (136-145); Total Protein 5.9 g/dL (6.4-8.2)
[2024-11-24] MEDS: Enoxaparin 40 MG/0.4 ML SYR SC (09:08)
[2024-11-24] MEDS: Potassium Chloride 10 MEQ CAPCR 20 MEQ PO (09:09)
[2024-11-24] MEDS: Normal Saline Flush 10 ML SYR IVP ×2 (09:09→20:29)
[2024-11-24] MEDS: lamoTRIgine 100 MG TAB PO ×2 (09:09→20:28)
[2024-11-24] MEDS: Divalproex 250 MG TABEC PO (09:09)
[2024-11-24] MEDS: Acetaminophen 500 MG TAB 1000 MG PO ×3 (09:09→20:28)
--- NOTE | 2024-11-24 12:07 | IN_ITS ---
PT Notes Visit Reasons: Acute hypothermia, Elevated troponins Inpatient Physical Therapy Evaluation Date: November 24, 2024 Referring Doctor: Dr. Enoc Martinez PT Orders: PT CONSULT: Safety consult for discharge/fall safety assessment Precautions: Standard fall precautions, activity tolerance Patient Profile/Admitting Diagnosis: The patient is a 74-year-old female with history of memory loss, frequent falls, chronic kidney disease who presented to the emergency department for hypothermia. History is obtained from EMS and the patient. Reports that medics found the patient at the end of her driveway which was may be 75 to 100 yards from their house. Reports she was sitting on a snow bank wearing wet clothes. Local police went into the patient's home and found the asleep. The patient herself does not recall how long she has been out there for and does not know why she was outside in the first place. 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 (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) CKD (chronic kidney disease) (Chronic) Osteoarthritis (Chronic) GERD (gastroesophageal reflux disease) (Chronic) Frequent falls (Chronic) IFG (impaired fasting glucose) (Chronic) Anxiety and depression (Chronic) Telogen effluvium (Chronic) [facility] [place] [facility] Derm Partial symptomatic epilepsy with complex partial seizures, intractable, 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 Iglesias GI [facility] [place] [facility] Hyperlipidemia (Chronic 03/23/12) 03/2019 labs: 10-year ASCVD risk = ~14.5% --> started on moderate intensity statin therapyHeadache (Acute 03/23/12) Dyspepsia (Acute 05/03/14) GI [facility] [place] EGD 03/2009 Hpylori treated and resolved Chronic constipation (Chronic 05/27/17) [facility] [place] GI Medical History (Updated 11/23/24 @ 05:45 by Sushant Gilbert) Elevated troponin Sebaceous cyst Renal cyst 08/20/2020 US: simple cystCyst of breast, right, solitary (03/2018) Tubular adenoma of colon (07/12/17) descending colon Liver function abnormality (05/03/14) GI [facility] neg CT, lab w/u; ? from antiseizure meds Chest pain, unspecified (05/09/13) nl MPI 05/07/13 EF 71%; later thought to be 2/2 GERD Colon cancer Surgical History Hx of colonoscopy (~02/21/24) [facility] [place] Dr Apoadca/O esophagogastroduodenoscopy (~02/21/24) [facility] [place], Dr Gandhi-7mm soft nodule unchanged from olectomy (~1994) For colon CA Home Medications ?Medication ?Instructions ?Recorded ?Confirmed blood sugar diagnostic (Blood #100 ea 06/20/19 11/08/24 Glucose Test strips) blood-glucose meter #1 ea 06/20/19 11/08/24 lancets #100 ea 06/20/19 11/08/24 lamotrigine 100 mg tablet 100 mg PO BID 09/11/20 11/22/24 (Lamictal) clonazepam 0.5 mg tablet See Rx Instructions PO BID 12/30/20 11/22/24 acetaminophen 500 mg tablet 1,000 mg (2 x 500 mg) PO TID pain 12/01/22 11/22/24 #540 tab-caps clobazam 10 mg tablet 10 mg PO QHS 06/04/24 11/22/24 divalproex 250 mg tablet,delayed 250 mg PO DAILY 11/08/24 11/22/24 release Social History/Home Situation: Lives in multilevel home. Typically enters to the basement level and has a full set of stairs with railing upon entry of main level. Lives with . Current Functional Limitations: Bed mobility, community ambulation, impaired balance. Equipment Owned/DME: Front wheel walker Subjective: Patient states she is feeling a little more mobile today compared to yesterday. Still complaining of bilateral hand pain/fingers. Complains of bilateral hip/buttock pain. Uncertain if she fell on her hips when her accident occurred. Objective: General Observation: Lying in bed with head of bed 45 degrees. Telemetry. IV port left upper extremity. Bandages on bilateral hands/fingers. Per chart review patient has second-degree frostbite ruth. Mental Status: Alert and oriented x 3 Pain: 4/10 bilateral hands/ fingers Vital Signs: per nursing ROM: Right Upper Extremity: Glenohumeral joint flexion 120, abduction 90, elbow flexion and extension within normal limits Left Upper Extremity: Glenohumeral joint flexion 110, abduction 90, elbow flexion and extension within normal limits Right Lower Extremity: Active hip flexion in sitting 95 degrees, abduction 20, active assistive 30, knee flexion and extension within functional limits. Mild pain with endrange terminal flexion. Ankle range of motion within functional limits Left Lower Extremity: Active hip flexion in sitting 100 degrees, abduction 25, active assistive 30, knee flexion and extension within functional limits. Mild pain with endrange terminal flexion. Ankle range of motion within functional limits Strength: Right Upper Extremity: Glenohumeral joint flexion and abduction 4 -/5, elbow flexion 4/5, elbow extension 4 -/5. Budget Coordinator not assessed but was able to manipul ate front wheeled walker for ambulation purposes. Left Upper Extremity: Glenohumeral joint flexion and abduction 4 -/5, elbow flexion 4/5, elbow extension 4 -/5. Budget Coordinator not assessed but was able to man ipulate front wheel walker for ambulation purposes. Right Lower Extremity: Hip flexion 4 -/5, knee flexion 4/5, knee extension 4 -/5 with complaints of discomfort through distal quad, ankle dorsiflexion 3+/5, plantarflexion 4 -/5 Left Lower Extremity: Hip flexion 4 -/5, knee flexion 4/5, knee extension 4 -/5 with complaints of discomfort through distal quad, ankle dorsiflexion 3+/5, plantarflexion 4 -/5 Sensation: Intact sensation bilateral lower extremities. Bed Mobility/Transfers: Supine?sit: Head of bed 45 degrees with moderate assist x 1 Sit?stand:To front wheel walker mod assist x 1 Stand?sit: To edge of bed from front wheel walker min assist x 1 with verbal cues for hand placement Bed mobility mod assist x 1 for repositioning in bed Gait: Ambulate 15 feet with mod assist x 1 with front wheel walker Balance: Static Sitting: Good Dynamic Sitting: Fair Static Standing: Fair Dynamic Standing: Poor Special Tests: Mobility Limitations Standardized Measure [facility] 6 clicks Basic Mobility Inpatient Short Form: Raw Score: 13 CMS Score: 64.91 Informed Consent/Education: Patient instructed in purpose of PT consult and plan of care. Assessment: Patient not appropriate for discharge to home due to safety issues. Would benefit from placement in short term care facility for further strengthening and mobility training. Patient is a 74-year-old female presents with clinical signs and symptoms consistent with current/admitting diagnoses that have resulted to mobility limitations, gait instability, generalized weakness, and impairment of motor control as demonstrated by the following impairment level findings: 1. Decreased strength to bilateral lower extremity major muscle groups 2. Impaired standing balance 3. Pain in bilateral hands 4. Impaired functional activity tolerance sitting and standing Impairments are contributing to the following functional limitations: 1. Inability to safely ambulate without assistive device 2. Increase completion time for mobility ADL performance 3. Increased fall risk 4. Decline in bed mobility skills 5. Declining transfer skills Patient is assessed as a moderate complexity based on the following: History: 83-year-old female with impairment level findings, functional limitations, and past medical history as indicated above Examination: Demonstrable impairment in strength, balance, and mobility level with underlying impairments and functional limitations as documented above Presentation: Evolving Decision Making: Moderate Goals: 1. Patient independent with bed mobility 2. Supine to sit with min assist of 1 3. Sit to supine with min assist of 1 4. Sit to stand at FWW with min assist of 1 5. Bed to chair transfer with FWW min assist of 1 Plan of Care/Treatment Plan: 1-2x/day, 7 days/week x 1 week. Plan of care has been reviewed with the TECHNICAL ADMINISTRATIVE ASSISTANT providing the service under Physical Therapy direction. Initiate Physical Therapy intervention for strengthening, bed mobility, transfers, gait, balance training, use of assistive device. DISCHARGE RECOMMENDATIONS: Short term SNF TREATMENT CODE/TIME: 49603?30 minutes initial evaluation Thank you for this referral. Petr Camargo PT, DPT Disclaimer: This note was created using [employer] voice recognition software. It was reviewed for major content. However, there may be multiple small discrepancies and errors due to the voice recognition aspects of the software.
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
[2024-11-24] MEDS: Mylanta Suspension 30 ML CUP PO (14:07)
[2024-11-24] MEDS: Clobazam 10mg TAB 10 MG PO (20:28)
[2024-11-25] VITALS (14 sets, daily range): BP systolic 110–159; BP diastolic 44–93; PULSE 57–76; RESP 17–27; TEMP 36.7–37.4; O2SAT 94–96
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
[2024-11-25 06:36] LABS: HCT 35.9 % (36.0-46.0); HGB 11.2 g/dL (11.2-15.7); MCH 27.7 pg (27.0-33.0); MCHC 31.2 % (32.0-36.0); MCV 89 fL (80-95); MPV 10.2 fL (8.0-11.0); Platelet Count 298 10^3/uL (130-400); RBC 4.05 10^6/uL (3.93-5.22); RDW 14.3 % (11.7-14.6); RDW-SD 46.3 fL; WBC 6.24 10^3/uL (4.4-10.8)
[2024-11-25 07:00] LABS: ALT 17 U/L (14-59); AST 28 U/L (15-37); Albumin 2.7 g/dL (3.4-5.0); Alkaline Phosphatase 101 U/L (46-116); Anion Gap 5.2 mmol/L (3-11); BUN 25 mg/dL (7-18); CO2 29.8 mmol/L (21.0-32.0); CREATININE 1.1 mg/dL (0.55-1.02); Calcium 8.4 mg/dL (8.5-10.1); Chloride 108 mmol/L (98-107); Estimated GFR 52.08 (mL/min/1.73m2); Glucose 95 mg/dL (74-106); Sodium 143 mmol/L (136-145)
[2024-11-25] MEDS: Enoxaparin 40 MG/0.4 ML SYR SC (08:44)
[2024-11-25] MEDS: Mylanta Suspension 30 ML CUP PO (08:44)
[2024-11-25] MEDS: Divalproex Sodium 250 MG TAB.ER.24H PO (08:45)
[2024-11-25] MEDS: lamoTRIgine 100 MG TAB PO ×2 (08:45→19:30)
[2024-11-25] MEDS: Acetaminophen 500 MG TAB 1000 MG PO ×3 (08:45→19:30)
[2024-11-25] MEDS: Normal Saline Flush 10 ML SYR IVP ×2 (08:46→19:32)
--- NOTE | 2024-11-25 11:19 | PTTR_ITS ---
PT Notes Visit Reasons: Acute hypothermia, Elevated troponins Inpatient Physical Therapy Treatment Note [facility] Date: 11/25/24 SUBJECTIVE: Alba states that she is grateful for a walk. She c/o LBP which sounds like it is chronic. OBJECTIVE: []? PAIN: low back/ sacral VITALS: ?monitored by nsg. Therapeutic Activities ([id number]): Direct one-on-one instruction in dynamic ac tivities to improve functional performance. ? BED MOBILITY/TRANSFERS? Supine-sit: CGA ? Sit-supine: CGA ? Sit-stand: CGA ? Stand-sit: CGA ? Bed-Chair: CGA? Provided skilled cues and instruction on performance and technique throughout. ? GAIT? Assistive Device: FWW ? Weight bearing:full Assist: CGA? Distance:? approx 150'? Deviation: fwd flex posture? pt toileted. Required SBA for gustavo care.? ASSESSMENT:? tolerated session well. Cues for posture as she tends to fwd flex due to LBP. PLAN: will continue to progress functional mobility to tolerance following PT POC. TREATMENT CODE/TIME: 30 min [id number]
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
[2024-11-25] MEDS: Clobazam 10mg TAB 10 MG PO (19:30)
[2024-11-26] MEDS: traMADol 50 MG TAB PO ×2 (02:16→08:10)
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
[2024-11-26] MEDS: Divalproex Sodium 250 MG TAB.ER.24H PO (08:03)
[2024-11-26] MEDS: Acetaminophen 500 MG TAB 1000 MG PO ×2 (08:04→20:03)
[2024-11-26] MEDS: Enoxaparin 40 MG/0.4 ML SYR SC (08:05)
[2024-11-26] MEDS: lamoTRIgine 100 MG TAB PO ×2 (08:05→20:03)
[2024-11-26] MEDS: Normal Saline Flush 10 ML SYR IVP ×2 (08:06→20:04)
[2024-11-26 08:30] VITALS: TEMP 36.7
[2024-11-26 08:35] VITALS: BP 101/60; PULSE 68; O2SAT 96
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
--- NOTE | 2024-11-26 12:31 | PT.INTREAT ---
PT Notes Visit Reasons: Acute hypothermia, Elevated troponins Inpatient Physical Therapy Treatment Note [facility] Date: 11/26/2024 SUBJECTIVE: Alba reported intermittent discomfort at coccyx/ sacral area with sitting and transitions sitto/from stand. She states she can move her finger a little more today especially on her right hand She noted the left hand remains more painful. OBJECTIVE:female semireclined in bed with dressing to B hands/fingers telemetry in place throughout session ? PAIN: low back/ sacral 2/10 hands L>R 4/10 VITALS: ?monitored by nsg. also noted episode of lightheadedness while standing pt assisted to chair and BP taken 115/69 Therapeutic Activities ([id number]): Direct one-on-one instruction in dynamic activities to improve functional performance. ? BED MOBILITY/TRANSFERS? Supine-sit: CGA ? Sit-supine: CGA ? Sit-stand: CGA ? Stand-sit: CGA ? Bed-Chair: CGA? Provided skilled cues and instruction on performance and technique throughout. ? GAIT? Assistive Device: FWW ? Weight bearing:full Assist: CGA? Distance:? 200 feet x 1, 100 feet x 1? Deviation: fwd flex posture? [id number] stairs: 2 6 steps and 3 4 steps x 2 with 2 rails CGA step to pattern ? ASSESSMENT:?Pt continues to require Cues for posture as she tends to fwd flex . Pt demonstrated increased tolerance to ambulation and able to perform stairs this session. She had one episode of lightheadedness at end of session BP taken 115/69 Nurse noted no change on telemetry during that time. Continue to monitor. Pt demonstrates improved R finger flexion able to fully grasp FWW. Pt able to initiate finger flexion on the left .Pt would benefit from OT for B hand for ADL care and self feeding, home management PLAN: will continue to progress functional mobility to tolerance following PT POC. Recommendations : short SNF for PT and OT vs Home with HH PT and OT TREATMENT CODE/TIME: 26299, 36381 /[id number]
[2024-11-26 15:27] VITALS: BP 124/47; PULSE 61; O2SAT 95
[2024-11-26 15:28] VITALS: BP 123/46; PULSE 62; O2SAT 95
[2024-11-26 15:30] VITALS: TEMP 36.4
--- NOTE | 2024-11-26 15:47 | NUR.NOTE ---
Nursing Note: Patient had a back to back to back meeting with provider, an [employer] disability representative, and a [place] police department officer. A teletranslator was utilized to facilitate the conversations between the patient and the participants. The patient's COLST form was clarified for the patient and swapped to full code; [employer] disability representative was given authorization by patient for relevant actions; and patient gave a report to the officer. Teletranslator was then utilized to clarify HIPAA for the patient and what it meant to have someone on the form; the patient ultimately withdrew HIPAA clearance for her , and it was extensively confirmed the patient understood what having the on or off the form each meant.
[2024-11-26] MEDS: Clobazam 10mg TAB 10 MG PO (20:03)
[2024-11-26 20:17] VITALS: BP 123/62; PULSE 71; RESP 18; TEMP 36.7; O2SAT 96
[2024-11-27] VITALS (9 sets, daily range): BP systolic 110–153; BP diastolic 46–85; PULSE 58–78; RESP 13–28; TEMP 36.6–36.9; O2SAT 94–96
[2024-11-27] MEDS: traMADol 50 MG TAB PO (03:25)
[2024-11-27 07:07] LABS: Abs Immature Grans 0.02 10^3/uL (0.0-0.06); Absolute Basophil Count 0.04 10^3/uL (0.0-0.2); Absolute Eosinophil Count 0.13 10^3/uL (0.0-0.7); Absolute Monocyte Count 0.38 10^3/uL (0.1-0.8); Absolute Neutrophil Count 3.74 10^3/uL (1.2-6.7); Basophils % 0.6 %; Eosinophils % 1.9 %; HCT 31.4 % (36.0-46.0); Immature Grans % 0.3 %; Lymphocytes % 35.8 %; MCHC 31.8 % (32.0-36.0); MCV 88 fL (80-95); MPV 10.2 fL (8.0-11.0); Monocytes % 5.7 %; Neutrophils % 55.7 %; Platelet Count 270 10^3/uL (130-400); RBC 3.57 10^6/uL (3.93-5.22); RDW 14.6 % (11.7-14.6); RDW-SD 46.5 fL; WBC 6.71 10^3/uL (4.4-10.8)
[2024-11-27 07:32] LABS: ALT 34 U/L (14-59); AST 43 U/L (15-37); Albumin 2.5 g/dL (3.4-5.0); Alkaline Phosphatase 105 U/L (46-116); Anion Gap 5.6 mmol/L (3-11); BUN 17 mg/dL (7-18); Bilirubin, Total 0.25 mg/dL (0.2-1.0); CO2 28.4 mmol/L (21.0-32.0); Calcium 8.4 mg/dL (8.5-10.1); Chloride 106 mmol/L (98-107); Creatine Kinase 88 U/L (26-192); Estimated GFR 58.39 (mL/min/1.73m2); Glucose 91 mg/dL (74-106); Potassium 3.9 mmol/L (3.5-5.1); Sodium 140 mmol/L (136-145); Total Protein 5.5 g/dL (6.4-8.2); Troponin I 37 ng/L (<or=51)
[2024-11-27] MEDS: lamoTRIgine 100 MG TAB PO (08:08)
[2024-11-27] MEDS: Divalproex Sodium 250 MG TAB.ER.24H PO (08:08)
[2024-11-27] MEDS: Acetaminophen 500 MG TAB 1000 MG PO (08:08)
[2024-11-27] MEDS: Enoxaparin 40 MG/0.4 ML SYR SC (08:08)
[2024-11-27] MEDS: Normal Saline Flush 10 ML SYR IVP (08:17)
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
== END 2024-11-27 09:30 | disposition skilled nursing facility (03) | DRG 923 ==
LOC: ER 23:22 → ICU 11-23 01:01
PROVIDERS: Family Medicine; Hospitalist; Admitting Provider Family Medicine; Emergency Provider Emergency Medicine; PCP Nurse Practitioner; Visit Provider Family Medicine
DX: T68.XXXA Hypothermia, initial encounter (principal); T33.521A Superficial frostbite of right hand, initial encounter; T33.522A Superficial frostbite of left hand, initial encounter; G40.209 Localization-related (focal) (partial) symptomatic epilepsy and epileptic syndromes with complex partial seizures, not intractable, without status epilepticus; T74.91XA Unspecified adult maltreatment, confirmed, initial encounter; E87.0 Hyperosmolality and hypernatremia; M62.82 Rhabdomyolysis; I67.89 Other cerebrovascular disease; R41.3 Other amnesia; R29.6 Repeated falls; F41.9 Anxiety disorder, unspecified; F32.A Depression, unspecified; N18.31 Chronic kidney disease, stage 3a; E87.6 Hypokalemia; R91.8 Other nonspecific abnormal finding of lung field; W19.XXXA Unspecified fall, initial encounter; R74.8 Abnormal levels of other serum enzymes; X31.XXXA Exposure to excessive natural cold, initial encounter; W00.0XXA Fall on same level due to ice and snow, initial encounter; Z91.81 History of falling; K21.9 Gastro-esophageal reflux disease without esophagitis; R73.01 Impaired fasting glucose; R31.29 Other microscopic hematuria; M54.50 Low back pain, unspecified; E78.5 Hyperlipidemia, unspecified; K58.9 Irritable bowel syndrome, unspecified; Z66 Do not resuscitate; E86.0 Dehydration; M54.12 Radiculopathy, cervical region; Z96.82 Presence of neurostimulator; G93.81 Temporal sclerosis; R74.01 Elevation of levels of liver transaminase levels; R60.0 Localized edema; G89.29 Other chronic pain; M25.561 Pain in right knee; M25.562 Pain in left knee
CPT/HCPCS: 00123; 36415; 51702; 74177; 80053; 80307; 82550; 85027; 87637; 93005; 93306; 97116; 97162; 97530; 99285; J1650; 70450; 71260; 72125; 80164; 80320; 81003; 81015; 84132; 84443; 84484; 85025; 93010; 99223; 99233; 99239; J3470; J3480; J3490

== ENCOUNTER 2024-12-03 20:19 | Outpatient (REF) | payer SELFPAY ==
[2024-12-03 18:24] LABS: Iron 37 ug/dL (50-170); Total Iron Binding Capacity 346 ug/dL (250-450); Transferrin Sat 11 % (15-50)
[2024-12-03 18:51] LABS: Ferritin 71 ng/mL (8-252); Folate 4.3 ng/mL (8.6-20.0); TSH (W/Ref FT4) 3.61 uIU/mL (0.36-3.74); Vitamin B12 614 pg/mL (193-986)
== END 2024-12-03 20:20 | disposition home or self-care (01) ==
LOC: LBN 20:19
PROVIDERS: PCP Nurse Practitioner; Visit Provider Nurse Practitioner Gerontology
DX: D51.9 Vitamin B12 deficiency anemia, unspecified (principal); E03.9 Hypothyroidism, unspecified; D50.8 Other iron deficiency anemias; D52.9 Folate deficiency anemia, unspecified
CPT/HCPCS: 82607; 82728; 82746; 83540; 83550; 84443

== ENCOUNTER 2024-12-17 19:05 | Outpatient (REF) | payer SELFPAY ==
[2024-12-17 18:33] LABS: Bilirubin Negative (Negative); Blood Small (Negative); Clarity Clear (Clear); Glucose Negative (Negative); Ketones Negative (Negative); Leukocyte Esterase Negative (Negative); Nitrite Negative (Negative); Urobilinogen 0.2 mg/dL (Up to 0.2); pH 6.5 (5-8)
[2024-12-17 18:55] LABS: Bacteria Rare HPF (Negative); C & S Indicated? C&S Done As Ordered; Casts 0-2 Hyaline LPF (Negative); Crystals Negative HPF (Negative); Epithelial Cells Few HPF (Negative); Mucus Negative (Negative); Other Cells Rare Transitional (Negative); WBC 0-2 HPF (0-5)
== END 2024-12-17 19:06 | disposition home or self-care (01) ==
LOC: LBN 19:05
PROVIDERS: PCP Nurse Practitioner; Visit Provider Nurse Practitioner Gerontology
DX: N39.0 Urinary tract infection, site not specified (principal); R82.89 Other abnormal findings on cytological and histological examination of urine
CPT/HCPCS: 81003; 81015; 87086

== ENCOUNTER 2024-12-18 09:38 | Emergency (ER) | payer MEDICARE, SELFPAY ==
[2024-12-18] VITALS (24 sets, daily range): BP systolic 122–185; BP diastolic 43–74; PULSE 67–79; RESP 11–29; TEMP 37.2; O2SAT 91–100
--- NOTE | 2024-12-18 09:45 | DI.CT_ITS ---
Exam(s) CT ABDOMEN PELVIS W EXAM: CT ABDOMEN PELVIS W CLINICAL HISTORY: LLQ and L. flank pain. TECHNIQUE: Imaging Protocol: Axial computed tomography images with coronal and sagittal reformatted images were created and reviewed CONTRAST MATERIAL: Intravenous: Omnipaque-350 100cc Oral: None COMPARISON: CT CT CHEST/ABD/PEL W from 11/22/2024 FINDINGS: VISUALIZED LUNG BASES: Scarring in the right lung base again noted. No pleural effusions. ABDOMEN: There is no ascites. LIVER: There are no focal hepatic lesions evident. No dilated intrahepatic ducts. GALLBLADDER/BILIARY: Gallbladder is mildly distended but not edematous. There are no calcified galls tones in the gallbladder. No pericholecystic fluid CBD is not dilated. PANCREAS: No evidence of pancreatic mass nor dilatation of the pancreatic duct. SPLEEN: Spleen is not enlarged. No obvious intrasplenic lesions. Splenic and portal veins are paten t. ADRENALS: There are no significant adrenal masses. KIDNEYS:There is a benign exophytic cyst off the superior pole the right kidney which measures 2 cm. Does not require further imaging workup. Smaller cortical cysts are noted in both kidneys. Also no t requiring further workup. No solid renal masses. No calculi nor hydronephrosis.. ABDOMINAL AORTA: Abdominal aorta is not enlarged. LYMPH NODES:There is no retroperitoneal nor paraaortic adenopathy. ABDOMINAL WALL: There is a left side anterior abdominal wall hernia in the pelvis again noted which c ontains only fat and exhibits a wide neck of 2.8 cm.. There are no bowel loops within the hernia sac . This hernia sac measures 4 cm craniocaudal by 2 cm AP by 4 cm wide. GI: There is a sigmoid anastomosis again noted with prominent diameter of the sigmoid at this level b ut unchanged from previous. The diameter of the bowel at this level is 6.8 cm. There is no dilatati on of the large bowel above this level. Sigmoid below this level is collapsed. PELVIS: GI: Appendix is not identified and may be surgically absent.No evidence of sigmoid diverticulitis. LYMPH NODES: There is no intrapelvic nor inguinal adenopathy. REPRODUCTIVE: Age-appropriate size. No abnormal adnexal masses. No free fluid in the pelvis. URINARY BLADDER: There is uniform thickening of the urinary bladder wall probably related to chronic cystitis. There are no radiopaque calculi in the urinary bladder. The pelvic ureters are not dilate d. Calcification is noted just lateral to the left ureter at L4-5 level which is probably a phleboli th. The ureter is not dilated. OSSEOUS: No fractures and no significant osseous lesions. Multilevel facet arthropathy noted at L4-5 and L5-S1 levels. SI joints unremarkable. IMPRESSION: 1. The diameter of the sigmoid colon at the level of the anastomosis is prominent at 6.8 cm although this does appear to be similar to the previous study. Sigmoid distal to this is collapsed. The larg e bowel lumen above this level is not increased. 2. There is an adjacent arm left lower quadrant anterior abdominal wall hernia again noted which cont ains only fat and no bowel loops. This may be a hernia at prior ostomy site. 3. Uniformly thickened urinary bladder wall which may be related to cystitis. The previously present Park catheter in the urinary bladder evident on CT scan of 11/22/2024 has been removed. RADIATION DOSE DELIVERED: 452.61mGy.cm Total DLP DATA REPOSITORY: All CT scans at this facility are submitted to the National Radiology Data Registry (NRDR) Dose Index Registry (DIR) with the [employer] (ACR). RADIATION OPTIMIZATION: All CT scans at this facility use at least one of these dose optimization te chniques: automated exposure control; mA and/or kV adjustment per patient size (includes targeted exa ms where dose is matched to clinical indication); or iterative reconstruction.
[2024-12-18 10:03] LABS: Abs Immature Grans 0.04 10^3/uL (0.0-0.06); Absolute Basophil Count 0.04 10^3/uL (0.0-0.2); Absolute Eosinophil Count 0.15 10^3/uL (0.0-0.7); Absolute Lymphocyte Count 1.26 10^3/uL (1.2-3.4); Absolute Monocyte Count 0.56 10^3/uL (0.1-0.8); Absolute Neutrophil Count 7.43 10^3/uL (1.2-6.7); Basophils % 0.4 %; Eosinophils % 1.6 %; HCT 34.5 % (36.0-46.0); HGB 11.2 g/dL (11.2-15.7); Immature Grans % 0.4 %; Lymphocytes % 13.3 %; MCH 28.8 pg (27.0-33.0); MCHC 32.5 % (32.0-36.0); MCV 89 fL (80-95); Monocytes % 5.9 %; Neutrophils % 78.4 %; Platelet Count 322 10^3/uL (130-400); RBC 3.89 10^6/uL (3.93-5.22); RDW 15.2 % (11.7-14.6); RDW-SD 49.1 fL; WBC 9.48 10^3/uL (4.4-10.8)
[2024-12-18 10:05] LABS: Lactate 2.5 mmol/L (<or=2.0)
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
[2024-12-18] MEDS: MORPHine 4 MG/ML SYR 2 MG IVP (10:17)
[2024-12-18] MEDS: Lactated Ringers 500 ML IV (10:18)
--- NOTE | 2024-12-18 10:18 | NUR.NOTE ---
Nursing Note: Language Line Biomedical Technician used for triage.
[2024-12-18 10:40] LABS: ALT 16 U/L (14-59); AST 9 U/L (15-37); Albumin 3.3 g/dL (3.4-5.0); Alkaline Phosphatase 102 U/L (46-116); Anion Gap 8.8 mmol/L (3-11); BUN 18 mg/dL (7-18); Bilirubin, Total 0.49 mg/dL (0.2-1.0); CO2 29.2 mmol/L (21.0-32.0); Chloride 105 mmol/L (98-107); Estimated GFR 58.39 (mL/min/1.73m2); Glucose 122 mg/dL (74-106); Lipase 23 U/L (<78); Potassium 3.6 mmol/L (3.5-5.1); Sodium 143 mmol/L (136-145); Troponin I 7 ng/L (<or=51)
[2024-12-18] MEDS: Omnipaque 350 MG/ML 100 ML BTL IJ (10:41)
[2024-12-18] MEDS: Normal Saline - Diluent 50 ML VIAL IJ (10:42)
[2024-12-18] MEDS: Normal Saline Flush 10 ML SYR IVP (10:43)
[2024-12-18 11:07] LABS: Bilirubin Negative (Negative); Blood Small (Negative); Clarity Clear (Clear); Glucose Negative (Negative); Ketones Negative (Negative); Leukocyte Esterase Negative (Negative); Nitrite Negative (Negative); Specific Gravity <= 1.005 (1.005-1.025); Urobilinogen 0.2 mg/dL (Up to 0.2)
[2024-12-18 11:17] LABS: Bacteria Rare HPF (Negative); Epithelial Cells Rare HPF (Negative); WBC 0-2 HPF (0-5)
[2024-12-18 11:18] LABS: C & S Indicated? No; Casts Negative LPF (Negative); Crystals Negative HPF (Negative); Mucus Negative (Negative)
[2024-12-18] MEDS: MORPHine IR 15 MG TAB PO (11:52)
[2024-12-18] MEDS: MORPHine IR 15 MG TAB, 4 TABS/BTL PO (13:25)
== END 2024-12-18 13:05 | disposition home or self-care (01) ==
PROVIDERS: Emergency Provider Emergency Medicine; PCP Nurse Practitioner
DX: R10.32 Left lower quadrant pain (principal); K59.00 Constipation, unspecified; E78.5 Hyperlipidemia, unspecified; N18.9 Chronic kidney disease, unspecified; G40.109 Localization-related (focal) (partial) symptomatic epilepsy and epileptic syndromes with simple partial seizures, not intractable, without status epilepticus
CPT/HCPCS: 80053; 82962; 83690; 96361; 96374; 99285; 74177; 81003; 81015; 83605; 83735; 84484; 85025; 99284; J2270; J3490

== ENCOUNTER 2025-01-14 19:29 | Outpatient (REF) | payer MEDICARE, SELFPAY ==
[2025-01-14 19:21] LABS: Iron 63 ug/dL (50-170); Total Iron Binding Capacity 325 ug/dL (250-450)
[2025-01-14 19:35] LABS: Ferritin 80 ng/mL (8-252); Magnesium 2.5 mg/dL (1.8-2.4)
[2025-01-14 19:36] LABS: Folate > 20.0 ng/mL (8.6-20.0)
== END 2025-01-14 19:30 | disposition home or self-care (01) ==
LOC: LBN 19:29
PROVIDERS: PCP Nurse Practitioner; Visit Provider Nurse Practitioner Gerontology
DX: D52.9 Folate deficiency anemia, unspecified (principal); D50.9 Iron deficiency anemia, unspecified; E83.42 Hypomagnesemia
CPT/HCPCS: 82728; 82746; 83540; 83550; 83735

== ENCOUNTER 2025-05-14 01:49 | Outpatient (CLI) | payer MEDICARE, SELFPAY ==
--- NOTE | 2025-05-14 07:15 | DI.RAD_ITS ---
Exam(s) XR CHEST 2V PA LATERAL EXAM: XR CHEST 2V PA LATERAL CLINICAL HISTORY: Pacemaker 1.5 inches below incision, ? of lead DISPLACMENT,T82.128A TECHNIQUE: 2D digital imaging was performed of the chest. Two images were obtained. PA and lateral views were obtained. COMPARISON: CR CHEST 2 VIEWS PA,LAT from 04/18/2013 CR XR CHEST 2V PA LATERAL from 11/08/2024 FINDINGS: MEDIASTINUM: Normal. HEART: Normal. PULMONARY VASCULATURE: Normal. LUNGS: Clear. PLEURAL SPACE: No pleural effusion or pneumothorax. BONE:Within normal limits for the patient's age. OTHER FINDINGS:The cervical stimulator device in the wires are in stable position. IMPRESSION: No acute pulmonary findings. DATA REPOSITORY: RADIATION DOSE DELIVERED:
== END 2025-05-14 02:09 ==
PROVIDERS: PCP Family Medicine; Visit Provider Family Medicine
DX: T82.128A Displacement of other cardiac electronic device, initial encounter (principal)
CPT/HCPCS: 71046

== ENCOUNTER 2025-05-19 08:43 | Observation (INO) | payer MEDICARE, SELFPAY ==
[2025-05-19] VITALS (22 sets, daily range): BP systolic 99–169; BP diastolic 37–85; PULSE 61–88; RESP 14–28; TEMP 36.3–37.2; O2SAT 95–100
--- NOTE | 2025-05-19 08:30 | RT.EKG_ITS ---
APPROVED REPORT Exam: Resting ECG Reason for Exam: altered mental status Patient Location: E HR:77 bpm ECG Measurements Heart Rate 77 AXIS ID 172 P 42 QRSd 81 QRS -6 QT 403 T 21 QTc 454 Conclusion Sinus rhythm...normal P axis, V-rate 60- 99 Low voltage, precordial leads...precordial leads <1.0mV ST elevation, consider lateral injury...ST >0.10mV, I aVL V5 V6 Physician: no stemi, underlying flutter vs artifact
--- NOTE | 2025-05-19 09:00 | DI.CT_ITS ---
Exam(s) CT HEAD CERVICAL SPINE WO EXAM: CT HEAD CERVICAL SPINE WO CLINICAL HISTORY: confused/altered, trauma?. TECHNIQUE: Imaging Protocol: Axial computed tomography images with coronal and sagittal reformatted images were created and reviewed COMPARISON: CT CT HEAD CERVICAL SPINE WO from 11/22/2024 FINDINGS: CT Head: Ventricles and Extra axial spaces: Normal in size and morphology for the patient's age. Hemorrhage: None. Cerebral parenchyma: No evidence of an acute territorial infarct. There is no evidence of mass effect. There are again seen multiple parenchymal calcifications. Midline shift: None. Brainstem/Cerebellum: Normal. Calvarium: Normal. Visualized Paranasal sinuses/Mastoids: Clear. Soft Tissues: Unremarkable. CT Cervical Spine: Bones: No acute fracture or subluxation. There are age-related degenerative changes throughout the cervical spine. There is mild anterolisthesis of C7 on T1. Soft Tissues: Unremarkable. Lung Apices: Clear. IMPRESSION: 1. No acute intracranial process. 2. No acute fracture or subluxation in the cervical spine. RADIATION DOSE DELIVERED: 1,402.97mGy.cm Total DLP DATA REPOSITORY: All CT scans at this facility are submitted to the National Radiology Data Registry (NRDR) Dose Index Registry (DIR) with the [employer] (ACR). RADIATION OPTIMIZATION: All CT scans at this facility use at least one of these dose optimization techniques: automated exposure control; mA and/or kV adjustment per patient size (includes targeted exams where dose is matched to clinical indication); or iterative reconstruction.
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
--- NOTE | 2025-05-19 09:01 | DI.RAD_ITS ---
Exam(s) XR KNEE RT 3V AP,LAT,CAM EXAM: XR KNEE RT 3V AP,LAT,CAM CLINICAL HISTORY: trauma/pain to knee/ altered. TECHNIQUE: 2D digital imaging was performed of the right knee. Four views obtained. AP, lateral and PA tunnel views were obtained. COMPARISON: CR XR KNEE RT 3V AP,LAT,CAM from 10/30/2024 FINDINGS: BONES: No acute fracture is present. No bony destructive lesion is seen. JOINTS: There are marked degenerative changes seen in the knee, particularly the lateral femoral tibial and patellofemoral joints. There is a small joint effusion. There again seen osseous density superior to the patella which are well corticated and old. SOFT TISSUE: Normal. IMPRESSION: No acute fracture or dislocation. DATA REPOSITORY: RADIATION DOSE DELIVERED:
--- NOTE | 2025-05-19 09:01 | DI.RAD_ITS ---
Exam(s) XR CHEST 1V IN DI DEPT EXAM: XR CHEST 1V IN DI DEPT CLINICAL HISTORY: confused/altered TECHNIQUE: 2D digital imaging was performed of the chest. One image was obtained. An AP view was obtained. COMPARISON: CR XR CHEST 2V PA LATERAL from 05/14/2025 FINDINGS: MEDIASTINUM: Normal. HEART: Normal. PULMONARY VASCULATURE: Normal. LUNGS: Clear. PLEURAL SPACE: No pleural effusion or pneumothorax. BONE:Within normal limits for the patient's age. OTHER FINDINGS:There is a battery pack overlying the left upper chest wall with wire leads directed towards the left neck. IMPRESSION: No acute pulmonary findings. DATA REPOSITORY: RADIATION DOSE DELIVERED:
[2025-05-19 09:19] LABS: BE (Venous) 2 mmol/L (-2-3); HCO3 (Venous) 27 mmol/L (23-28); O2 Sat (Venous) 51 %; TCO2 (Venous) 25 mmol/L (24-29); pCO2 (Venous) 46 mmHg (41-51); pH (Venous) 7.38 (7.31-7.41); pO2 (Venous) 29 mmHg
[2025-05-19] MEDS: Normal Saline 500 ML IV ×2 (09:20→12:03)
[2025-05-19 09:22] LABS: Abs Immature Grans 0.08 10^3/uL (0.0-0.06); Absolute Basophil Count 0.03 10^3/uL (0.0-0.2); Absolute Neutrophil Count 11.71 10^3/uL (1.2-6.7); Basophils % 0.2 %; HCT 36.1 % (36.0-46.0); HGB 11.6 g/dL (11.2-15.7); Immature Grans % 0.6 %; Lymphocytes % 7.4 %; MCH 28.4 pg (27.0-33.0); MCHC 32.1 % (32.0-36.0); MCV 89 fL (80-95); Monocytes % 8.1 %; Neutrophils % 83.7 %; Platelet Count 289 10^3/uL (130-400); RBC 4.08 10^6/uL (3.93-5.22); RDW 13.5 % (11.7-14.6); RDW-SD 43.9 fL; WBC 13.99 10^3/uL (4.4-10.8)
[2025-05-19 09:23] LABS: Absolute Lymphocyte Count 1.04 10^3/uL (1.2-3.4); Absolute Monocyte Count 1.13 10^3/uL (0.1-0.8); Lactate 3.5 mmol/L (<or=2.0)
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
[2025-05-19 09:36] LABS: INR 1.1 (0.9-1.1); PTT Activated 22.6 sec (20.6-30.2); Prothrombin Time 10.6 sec (9.1-11.1)
[2025-05-19 09:41] LABS: Ammonia 12 umol/L (11-32)
[2025-05-19 09:51] LABS: ALT 21 U/L (14-59); AST 20 U/L (15-37); Alkaline Phosphatase 96 U/L (46-116); Anion Gap 10.9 mmol/L (3-11); BUN 31 mg/dL (7-18); Bilirubin, Total 0.6 mg/dL (0.2-1.0); CO2 28.1 mmol/L (21.0-32.0); CREATININE 1.6 mg/dL (0.55-1.02); Calcium 9.5 mg/dL (8.5-10.1); Chloride 103 mmol/L (98-107); Estimated GFR 33.22 (mL/min/1.73m2); Glucose 118 mg/dL (74-106); Potassium 3.1 mmol/L (3.5-5.1); Sodium 142 mmol/L (136-145); TSH (W/Ref FT4) 2.66 uIU/mL (0.36-3.74); Total Protein 7.7 g/dL (6.4-8.2); Troponin I 31 ng/L (<or=51)
[2025-05-19 09:55] LABS: ETHANOL BLOOD < 3.0 mg/dL (<10)
[2025-05-19 09:57] LABS: Procalcitonin < 0.10 ng/mL
[2025-05-19 10:05] LABS: VALPROIC ACID < 3 ug/mL
[2025-05-19 10:18] LABS: COVID-19 PCR Negative (Negative); Influenza A PCR Negative (Negative); Influenza B PCR Negative (Negative); RSV PCR Negative (Negative)
[2025-05-19 10:19] LABS: Source Nasopharynx
[2025-05-19 10:41] LABS: Bilirubin Negative (Negative); Blood Small (Negative); Clarity Clear (Clear); Glucose Negative (Negative); Ketones Trace mg/dL (Negative); Leukocyte Esterase Negative (Negative); Nitrite Negative (Negative); Specific Gravity 1.025 (1.005-1.025); Urobilinogen 0.2 mg/dL (Up to 0.2); pH 5.5 (5-8)
[2025-05-19 10:42] LABS: Troponin I 31 ng/L (<or=51)
[2025-05-19 10:47] LABS: Bacteria Negative HPF (Negative); C & S Indicated? No; Casts 5-10 Hyaline LPF (Negative); Crystals Negative HPF (Negative); Epithelial Cells Rare HPF (Negative); Mucus Trace (Negative); WBC 0-2 HPF (0-5)
[2025-05-19 11:43] LABS: Magnesium 2.1 mg/dL (1.8-2.4)
[2025-05-19] MEDS: POTASSIUM CHLORIDE 10 MEQ/100 ML BAG 100 MEQ IV_INF (12:03)
[2025-05-19] MEDS: Potassium Chloride 20 MEQ TABCR 40 MEQ PO (12:03)
[2025-05-19 12:44] LABS: Lactate 0.7 mmol/L (<or=2.0)
[2025-05-19 12:45] LABS: Troponin I 32 ng/L (<or=51)
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
[2025-05-19] MEDS: Normal Saline Flush 10 ML SYR IVP ×2 (15:23→20:35)
[2025-05-19 15:30] LABS: Lab Add On Test DONE
[2025-05-19] MEDS: Clobazam 10mg TAB 10 MG PO (20:32)
[2025-05-19] MEDS: lamoTRIgine 100 MG TAB PO (20:32)
[2025-05-19] MEDS: Acetaminophen 500 MG TAB 1000 MG PO (20:32)
[2025-05-20 06:24] VITALS: BP 147/53; PULSE 69; TEMP 36.4
[2025-05-20 06:58] LABS: HCT 33.9 % (36.0-46.0); HGB 10.9 g/dL (11.2-15.7); MCH 28.9 pg (27.0-33.0); MCHC 32.2 % (32.0-36.0); MCV 90 fL (80-95); MPV 9.5 fL (8.0-11.0); Platelet Count 267 10^3/uL (130-400); RBC 3.77 10^6/uL (3.93-5.22); RDW 13.9 % (11.7-14.6); RDW-SD 45.1 fL; WBC 8.21 10^3/uL (4.4-10.8)
[2025-05-20 07:22] LABS: ALT 19 U/L (14-59); AST 17 U/L (15-37); Albumin 3.1 g/dL (3.4-5.0); Alkaline Phosphatase 79 U/L (46-116); BUN 30 mg/dL (7-18); Bilirubin, Total 0.6 mg/dL (0.2-1.0); CREATININE 1.2 mg/dL (0.55-1.02); Calcium 8.8 mg/dL (8.5-10.1); Chloride 107 mmol/L (98-107); Estimated GFR 46.91 (mL/min/1.73m2); Glucose 95 mg/dL (74-106); Potassium 3.7 mmol/L (3.5-5.1); Sodium 138 mmol/L (136-145); Total Protein 6.4 g/dL (6.4-8.2)
[2025-05-20 07:32] VITALS: BP 131/50; PULSE 62; RESP 17; TEMP 36.4; O2SAT 96
[2025-05-20] MEDS: lamoTRIgine 100 MG TAB PO ×2 (09:19→20:24)
[2025-05-20] MEDS: Docusate Sodium 100 MG CAP PO (09:19)
[2025-05-20] MEDS: Normal Saline Flush 10 ML SYR IVP ×2 (09:20→20:24)
[2025-05-20] MEDS: Divalproex Sodium 250 MG TAB.ER.24H PO (09:20)
[2025-05-20] MEDS: Polyethylene Glycol 3350 17 GM PACKET PO (09:20)
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
[2025-05-20 19:37] VITALS: BP 138/46; PULSE 67; RESP 20; TEMP 36.5; O2SAT 97
[2025-05-20] MEDS: Clobazam 10mg TAB 10 MG PO (20:24)
[2025-05-21 07:33] VITALS: BP 120/59; PULSE 74; RESP 17; TEMP 36.4; O2SAT 100
[2025-05-21] MEDS: Normal Saline Flush 10 ML SYR IVP ×2 (08:34→19:36)
[2025-05-21] MEDS: Divalproex Sodium 250 MG TAB.ER.24H PO (08:35)
[2025-05-21] MEDS: Acetaminophen 500 MG TAB 1000 MG PO (08:35)
[2025-05-21] MEDS: lamoTRIgine 100 MG TAB PO ×2 (08:35→19:36)
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
[2025-05-21 15:00] LABS: VALPROIC ACID 17.2 ug/mL
[2025-05-21] MEDS: Lactated Ringers 1,000 ML 100 ML IV (16:15)
--- NOTE | 2025-05-21 17:58 | TELEP.MEDR_ITS ---
Date of service: 05/21/25 Time of Service: 17:58 Telepharmacy Home Med Rec Allergies Allergies: No Known Allergies Allergy (Verified 05/19/25 08:59) Interview Person Interviewed: Patient Quality Quality of Interview/Accuracy of Medication List: Poor Sources Sources used to compile medication list: [employer] Medication List and PCP/Specialist List Changes made to Home Medication List: ADDITIONS: None DELETIONS: None CHANGES: None Additional Notes Additional Notes: Patient is a very poor historian and unable to contribute to med rec. Based on recent neurology notes from Kurtis Santos at [facility], patient should be taking clonazepam (0.5mg in AM and 1mg in PM), divalproex DR 250mg daily, and lamotrigine 100mg BID. A new prescription for clobazam 10mg nightly was sent to the pharmacy on 05/08 but it does not appear patient has started taking yet. I was unable to confirm with patient when she last took her medications. Recommended Changes Attestation: The home medication list is now updated to the best of my knowledge and is ready to be reconciled by the provider. Please contact the [facility] Med[facility] Reconciliation Pharmacist at for any questions.
[2025-05-21 18:16] LABS: Abs Immature Grans 0.01 10^3/uL (0.0-0.06); Absolute Basophil Count 0.04 10^3/uL (0.0-0.2); Absolute Eosinophil Count 0.08 10^3/uL (0.0-0.7); Absolute Monocyte Count 0.59 10^3/uL (0.1-0.8); Absolute Neutrophil Count 4.25 10^3/uL (1.2-6.7); Basophils % 0.6 %; Eosinophils % 1.1 %; HCT 33.8 % (36.0-46.0); HGB 10.9 g/dL (11.2-15.7); Immature Grans % 0.1 %; Lymphocytes % 30.7 %; MCH 28.6 pg (27.0-33.0); MCHC 32.2 % (32.0-36.0); MCV 89 fL (80-95); MPV 9.3 fL (8.0-11.0); Monocytes % 8.2 %; Neutrophils % 59.3 %; Platelet Count 274 10^3/uL (130-400); RBC 3.81 10^6/uL (3.93-5.22); RDW 13.6 % (11.7-14.6); RDW-SD 44.4 fL; WBC 7.17 10^3/uL (4.4-10.8)
[2025-05-21 18:31] LABS: ALT 19 U/L (14-59); AST 13 U/L (15-37); Albumin 3.1 g/dL (3.4-5.0); Alkaline Phosphatase 88 U/L (46-116); Anion Gap 10.9 mmol/L (3-11); BUN 18 mg/dL (7-18); Bilirubin, Total 0.3 mg/dL (0.2-1.0); CO2 26.1 mmol/L (21.0-32.0); CREATININE 1.2 mg/dL (0.55-1.02); Calcium 8.6 mg/dL (8.5-10.1); Chloride 105 mmol/L (98-107); Estimated GFR 46.91 (mL/min/1.73m2); Glucose 117 mg/dL (74-106); Magnesium 2.1 mg/dL (1.8-2.4); Potassium 3.5 mmol/L (3.5-5.1); Sodium 142 mmol/L (136-145); Total Protein 6.4 g/dL (6.4-8.2)
[2025-05-21 19:31] VITALS: BP 128/60; PULSE 73; RESP 16; TEMP 36.4; O2SAT 95
[2025-05-21] MEDS: Clobazam 10mg TAB 10 MG PO (19:36)
[2025-05-21] MEDS: clonazePAM 0.5 MG TAB PO (19:36)
[2025-05-22] MEDS: Lactated Ringers 1,000 ML 100 ML IV (02:38)
[2025-05-22 06:50] LABS: Abs Immature Grans 0.01 10^3/uL (0.0-0.06); Absolute Basophil Count 0.04 10^3/uL (0.0-0.2); Absolute Eosinophil Count 0.15 10^3/uL (0.0-0.7); Absolute Monocyte Count 0.45 10^3/uL (0.1-0.8); Basophils % 0.5 %; Eosinophils % 1.9 %; Immature Grans % 0.1 %; Lymphocytes % 38.7 %; MCH 28.4 pg (27.0-33.0); MCHC 31.6 % (32.0-36.0); MCV 90 fL (80-95); MPV 9.2 fL (8.0-11.0); Monocytes % 5.8 %; Platelet Count 304 10^3/uL (130-400); RBC 4.22 10^6/uL (3.93-5.22); RDW 13.8 % (11.7-14.6); RDW-SD 45.5 fL; WBC 7.75 10^3/uL (4.4-10.8)
[2025-05-22 07:33] VITALS: BP 152/70; PULSE 73; RESP 17; TEMP 36.4; O2SAT 97
[2025-05-22 07:48] LABS: BUN 15 mg/dL (7-18); CREATININE 1.1 mg/dL (0.55-1.02); Calcium 8.9 mg/dL (8.5-10.1); Chloride 105 mmol/L (98-107); Estimated GFR 52.08 (mL/min/1.73m2); Glucose 89 mg/dL (74-106); Magnesium 2.2 mg/dL (1.8-2.4); Potassium 3.8 mmol/L (3.5-5.1); Sodium 144 mmol/L (136-145)
[2025-05-22] MEDS: lamoTRIgine 100 MG TAB PO ×2 (08:50→19:45)
[2025-05-22] MEDS: clonazePAM 0.5 MG TAB PO ×2 (08:50→19:45)
[2025-05-22] MEDS: Divalproex Sodium 250 MG TAB.ER.24H PO (08:50)
[2025-05-22] MEDS: Docusate Sodium 100 MG CAP PO (08:50)
[2025-05-22] MEDS: Normal Saline Flush 10 ML SYR IVP ×2 (08:51→19:46)
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
[2025-05-22 13:01] LABS: Lamotrigine 10.3 mcg/mL (3.0-15.0)
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
--- NOTE | 2025-05-22 18:59 | DI.RAD_ITS ---
Exam(s) XR ABDOMEN FLAT PLATE EXAM: 2D digital imaging was performed. CLINICAL HISTORY: left sided abdominal pain. COMPARISON: No exams were available for comparison TECHNIQUE: Supine views of the abdomen performed. FINDINGS: BOWEL GAS PATTERN: Stomach and small bowel are nondistended. There is gas seen throughout the colon but no abnormal distension. Normal quantity of stool. OSSEOUS STRUCTURES: Unremarkable for age. OTHER FINDINGS: Visualized lung bases are clear. IMPRESSION: Nonobstructive bowel gas pattern. DATA REPOSITORY: RADIATION DOSE DELIVERED:
[2025-05-22 19:27] VITALS: BP 173/50; PULSE 75; RESP 20; TEMP 36.5; O2SAT 97
[2025-05-22] MEDS: Clobazam 10mg TAB 10 MG PO (19:45)
--- NOTE | 2025-05-22 20:19 | DI.VRAD_ITS ---
PROCEDURE INFORMATION: Exam: XR Abdomen Exam date and time: 05/22/2025 18:39 Age: 74 years old Clinical indication: Abdominal pain; Localized; Left; Prior surgery; Surgery date: 6+ months; Surgery type: Colectomy TECHNIQUE: Imaging protocol: Radiologic exam of the abdomen. Views: Frontal supine view of the abdomen. 1 View. COMPARISON: CT ABDOMEN PELVIS W 12/18/2024 10:39 FINDINGS: Gastrointestinal tract: Moderate colonic stool burden. No pathologic dilation of small bowel. Nobstructive bowel gas pattern. Intraperitoneal space: Left lower quadrant/left pelvic surgical clips. Bones/joints: Chronic bony changes with no acute fracture. IMPRESSION: Nobstructive bowel gas pattern. Dictated and Authenticated by: Maame Espinoza MD. Orderin Karen Hernández MD
[2025-05-23 07:18] VITALS: BP 125/54; PULSE 61; RESP 15; TEMP 36.6; O2SAT 96
[2025-05-23 07:30] LABS: Abs Immature Grans 0.02 10^3/uL (0.0-0.06); Absolute Basophil Count 0.04 10^3/uL (0.0-0.2); Absolute Eosinophil Count 0.09 10^3/uL (0.0-0.7); Absolute Lymphocyte Count 2.66 10^3/uL (1.2-3.4); Absolute Monocyte Count 0.37 10^3/uL (0.1-0.8); Absolute Neutrophil Count 3.75 10^3/uL (1.2-6.7); Basophils % 0.6 %; Eosinophils % 1.3 %; HCT 32.2 % (36.0-46.0); HGB 10.2 g/dL (11.2-15.7); Immature Grans % 0.3 %; Lymphocytes % 38.4 %; MCH 28.4 pg (27.0-33.0); MCHC 31.7 % (32.0-36.0); MCV 90 fL (80-95); MPV 9.4 fL (8.0-11.0); Monocytes % 5.3 %; Neutrophils % 54.1 %; Platelet Count 274 10^3/uL (130-400); RBC 3.59 10^6/uL (3.93-5.22); RDW-SD 45.6 fL; WBC 6.93 10^3/uL (4.4-10.8)
[2025-05-23] MEDS: Acetaminophen 500 MG TAB 1000 MG PO (07:41)
[2025-05-23] MEDS: Normal Saline Flush 10 ML SYR IVP (07:41)
[2025-05-23] MEDS: Divalproex 250 MG TABEC PO (07:41)
[2025-05-23] MEDS: lamoTRIgine 100 MG TAB PO (07:42)
[2025-05-23] MEDS: clonazePAM 0.5 MG TAB PO (07:42)
[2025-05-23 07:53] LABS: Anion Gap 4.1 mmol/L (3-11); BUN 16 mg/dL (7-18); CO2 31.9 mmol/L (21.0-32.0); CREATININE 0.9 mg/dL (0.55-1.02); Calcium 8.6 mg/dL (8.5-10.1); Chloride 108 mmol/L (98-107); Estimated GFR 66.26 (mL/min/1.73m2); Glucose 90 mg/dL (74-106); Magnesium 2.2 mg/dL (1.8-2.4); Potassium 4.1 mmol/L (3.5-5.1); Sodium 144 mmol/L (136-145)
--- NOTE | 2025-05-23 07:58 | PT.INTREAT ---
PT Notes Visit Reasons: Delirium Inpatient Physical Therapy Treatment Note [facility] Date: 05/23/25 PRECAUTIONS:fall, standard SUBJECTIVE: Alba is agreeable to getting up out of bed. Reports right leg pain, referencing lateral calf. Unable to recall trauma; states that she knows she fell, but is unsure how or if she struck her leg at the time. OBJECTIVE: ? Resolving bruising noted throughout RLE, extending approx 3 superior to ankle. Demonstrates good AROM of ankle and knee. TTP throughout right calf. No redness noted. Nursing aware. Therapeutic Activities ([id number]): Direct one-on-one instruction in dynamic activities to improve functional performance. ? BED MOBILITY/TRANSFERS? Supine-sit: supervision? Sit-supine: supervision ? Sit-stand: supervision? Stand-sit: supervision ? Bed-Chair: supervision with FWW ? Chair-bed: supervision with FWW Toileting: supervision, with minimal cues for equipment management. Able to perform self-care independently. Changes briefs in sitting position independently. ? Therapeutic Exercises (92537f8): Direct one-on-one instruction in therapeutic exercises to develop strength, endurance, range of motion and flexibility. ? Exercises LAQ: 10x Ankle pumps 10x2 Ambulation ? Assistive Device: FWW? Weight bearing: WBAT Assist: SBA ? Distance:? 150' ? Deviation: demonstrates good safety awareness and equipment management. Has single LOB requiring min A during straight plane ambulation. ? Stack Balance Test: 29/56 (indicates need for AD use) ASSESSMENT:? Demonstrating improved mobility, although remains at high risk for falls based on fall history and Stack scores. Demonstrates good safety awareness during today's session, but ongoing memory issues allow for continued safety concerns. PLAN: Continue PT intervention, with progressive strengthening, cardiovascular retraining and balance retraining. TREATMENT CODE/TIME: 7150-7122 DISCHARGE RECOMMENDATION: SNF Lindsey Hoyt, PT, DPT [facility]
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
== END 2025-05-23 12:55 | disposition skilled nursing facility (03) ==
LOC: ER 13:45 → MS 14:41
PROVIDERS: Nurse Practitioner Acute Care; Admitting Provider Family Medicine; Emergency Provider Student in an Organized Health Care Education/Training Program; PCP Family Medicine; Responsible Provider Nurse Practitioner Acute Care; Visit Provider Family Medicine
DX: R41.82 Altered mental status, unspecified (principal); T42.6X6A Underdosing of other antiepileptic and sedative-hypnotic drugs, initial encounter; N17.9 Acute kidney failure, unspecified; F32.A Depression, unspecified; R41.3 Other amnesia; F41.9 Anxiety disorder, unspecified; G40.219 Localization-related (focal) (partial) symptomatic epilepsy and epileptic syndromes with complex partial seizures, intractable, without status epilepticus; R10.9 Unspecified abdominal pain; T74.91XA Unspecified adult maltreatment, confirmed, initial encounter; Z79.899 Other long term (current) drug therapy; Z91.199 Patient's noncompliance with other medical treatment and regimen due to unspecified reason; N18.30 Chronic kidney disease, stage 3 unspecified; R91.8 Other nonspecific abnormal finding of lung field; Z95.0 Presence of cardiac pacemaker; R73.01 Impaired fasting glucose; K21.9 Gastro-esophageal reflux disease without esophagitis; R31.29 Other microscopic hematuria; K58.9 Irritable bowel syndrome, unspecified; E78.5 Hyperlipidemia, unspecified; M47.896 Other spondylosis, lumbar region; R29.6 Repeated falls; Z90.49 Acquired absence of other specified parts of digestive tract; Z85.038 Personal history of other malignant neoplasm of large intestine; D72.829 Elevated white blood cell count, unspecified
CPT/HCPCS: 00123; 36415; 36416; 73562; 80048; 80053; 80175; 82805; 82962; 84145; 85027; 87637; 93005; 96360; 96361; 97110; 97162; 97530; 99285; 70450; 71045; 72125; 73590; 74018; 80164; 80320; 81003; 81015; 82140; 83605; 83735; 84443; 84484; 85025; 85610; 85730; 93010; 99223; 99233; 99239; G0378; J3480

== ENCOUNTER 2025-06-03 18:36 | Outpatient (REF) | payer MEDICARE, SELFPAY | END 2025-06-03 18:37 | disposition home or self-care (01) | LOC: LBN 18:36 | PROVIDERS: PCP Nurse Practitioner; Visit Provider Nurse Practitioner Gerontology | DX: F31.9 Bipolar disorder, unspecified (principal) | CPT/HCPCS: 80164 ==

== ENCOUNTER 2025-08-05 18:59 | Outpatient (REF) | payer MEDICARE, SELFPAY ==
[2025-08-05 20:22] LABS: Abs Immature Grans 0.02 10^3/uL (0.0-0.06); HCT 34.0 % (36.0-46.0); HGB 10.9 g/dL (11.2-15.7); Immature Grans % 0.3 %; MCH 30.1 pg (27.0-33.0); MCHC 32.1 % (32.0-36.0); MCV 94 fL (80-95); MPV 10.2 fL (8.0-11.0); Platelet Count 263 10^3/uL (130-400); RBC 3.62 10^6/uL (3.93-5.22); RDW 13.2 % (11.7-14.6); RDW-SD 45.6 fL; WBC 7.91 10^3/uL (4.4-10.8)
[2025-08-05 20:38] LABS: ALT 13 U/L (14-59); AST 13 U/L (15-37); Albumin 3.2 g/dL (3.4-5.0); Alkaline Phosphatase 91 U/L (46-116); Anion Gap 11.8 mmol/L (3-11); BUN 17 mg/dL (7-18); Bilirubin, Total 0.3 mg/dL (0.2-1.0); CO2 26.2 mmol/L (21.0-32.0); Calcium 8.4 mg/dL (8.5-10.1); Chloride 106 mmol/L (98-107); Estimated GFR 52.08 (mL/min/1.73m2); Glucose 118 mg/dL (74-106); Potassium 4.1 mmol/L (3.5-5.1); Sodium 144 mmol/L (136-145); Total Protein 6.4 g/dL (6.4-8.2)
== END 2025-08-05 19:00 | disposition home or self-care (01) ==
LOC: LBN 18:59
PROVIDERS: PCP Nurse Practitioner; Visit Provider Nurse Practitioner Gerontology
DX: E87.8 Other disorders of electrolyte and fluid balance, not elsewhere classified (principal)
CPT/HCPCS: 80053; 85025

== ENCOUNTER 2025-08-19 07:20 | Outpatient (CLI) | payer MEDICARE, MEDICAID, SELFPAY ==
--- NOTE | 2025-08-19 | DI.CT_ITS ---
Exam(s) CT ABDOMEN PELVIS W EXAM: CT ABDOMEN PELVIS W CLINICAL HISTORY: LLQ PAIN HX COLON CANCER. TECHNIQUE: Imaging Protocol: Axial computed tomography images with coronal and sagittal reformatted images were created and reviewed CONTRAST MATERIAL: Intravenous: Omnipaque 350 Contrast volume:75 ml Oral: yes COMPARISON: CT CT ABDOMEN PELVIS W from 12/18/2024 CR XR CHEST 2V PA LATERAL from 05/14/2025 FINDINGS: ABDOMEN and PELVIS: Lung Bases: No acute findings. Dependent changes. Scarring at the right lung base. Liver: Normal density. No suspicious mass. Gallbladder and biliary tract: No radiodense calculus. No wall thickening or pericholecystic fluid. No biliary dilation. Pancreas: Normal density. No abnormal calcifications or inflammatory process. No evidence of mass. Spleen: Normal. Kidneys: Normal size, contour and axis. No radiodense stones. No obstructive uropathy. Stable renal cysts. No suspicious masses seen. Adrenal glands: No masses seen. Vasculature: Abdominal aorta non-dilated. Soft tissues: No change in appearance of left lower quadrant fat containing abdominal wall hernia. Bladder: No gross wall thickening. No calculi.No focal mass. Bowel: Sigmoid anastomosis again noted which appears unchanged. No associated wall thickening. No obstruction. Appendix is not seen. Peritoneal cavity: No ascites. No focal collection. No mesenteric inflammatory response. No free air. Bones: Unremarkable for age. Reproductive organs: Unremarkable. Lymph nodes: No pathologically enlarged lymph nodes. IMPRESSION:: No acute abnormality in the abdomen or pelvis. Stable appearance of sigmoid anastomosis. Stable appearance of left lower quadrant abdominal wall hernia containing fat. RADIATION DOSE DELIVERED: 549.52mGy.cm Total DLP DATA REPOSITORY: All CT scans at this facility are submitted to the National Radiology Data Registry (NRDR) Dose Index Registry (DIR) with the [employer] (ACR). RADIATION OPTIMIZATION: All CT scans at this facility use at least one of these dose optimization techniques: automated exposure control; mA and/or kV adjustment per patient size (includes targeted exams where dose is matched to clinical indication); or iterative reconstruction.
[2025-08-19] MEDS: Barium Sulfate 2% W/V-Berry Smoothie 450 ML BTL PO (07:22)
[2025-08-19] MEDS: Barium Sulfate 2% W/V-Creamy Vanilla Smoothie 450 ML BTL PO (07:23)
[2025-08-19] MEDS: Normal Saline Flush 10 ML SYR IVP (09:11)
[2025-08-19] MEDS: Normal Saline - Diluent 50 ML VIAL IJ (09:12)
[2025-08-19] MEDS: Omnipaque 350 MG/ML 500 ML BTL-Imaging package IJ (09:12)
== END 2025-08-19 07:40 ==
PROVIDERS: PCP Nurse Practitioner; Visit Provider Nurse Practitioner Gerontology
DX: R10.32 Left lower quadrant pain (principal); Z85.89 Personal history of malignant neoplasm of other organs and systems
CPT/HCPCS: 74177

== ENCOUNTER 2025-08-27 12:20 | Outpatient (REF) | payer MEDICARE, SELFPAY ==
[2025-08-29 11:14] LABS: Campylobacter PCR Negative (Negative); Shiga Toxin PCR Negative (Negative); Shigella/Enteroinvasive Ecoli Negative (Negative)
== END 2025-08-28 12:21 | disposition home or self-care (01) ==
LOC: LBN 12:20
PROVIDERS: PCP Nurse Practitioner; Visit Provider Student in an Organized Health Care Education/Training Program
DX: R19.7 Diarrhea, unspecified (principal); A04.72 Enterocolitis due to Clostridium difficile, not specified as recurrent; B96.89 Other specified bacterial agents as the cause of diseases classified elsewhere
CPT/HCPCS: 87015; 87269; 87272; 87505

== ENCOUNTER 2025-10-08 11:14 | Outpatient (REF) | payer MEDICARE, SELFPAY | END 2025-10-08 11:15 | disposition home or self-care (01) | LOC: LBN 11:14 | PROVIDERS: PCP Legal Medicine; Visit Provider Student in an Organized Health Care Education/Training Program | DX: R19.7 Diarrhea, unspecified (principal) | CPT/HCPCS: 87015; 87269; 87272 ==

== ENCOUNTER 2025-10-09 16:38 | Outpatient (REF) | payer MEDICARE, SELFPAY ==
[2025-10-09 18:39] LABS: EPI 027-NAP1-B1 PRESUMPTIVE NEGATIVE
[2025-10-10 23:42] LABS: Campylobacter PCR Negative (Negative); Shiga Toxin PCR Negative (Negative); Shigella/Enteroinvasive Ecoli Negative (Negative)
== END 2025-10-09 16:39 | disposition home or self-care (01) ==
LOC: LBN 16:38
PROVIDERS: PCP Legal Medicine; Visit Provider Student in an Organized Health Care Education/Training Program
DX: R19.7 Diarrhea, unspecified (principal); A04.72 Enterocolitis due to Clostridium difficile, not specified as recurrent; B96.89 Other specified bacterial agents as the cause of diseases classified elsewhere
CPT/HCPCS: 87505

== ENCOUNTER 2025-10-18 12:05 | Outpatient (CLI) | payer MEDICARE, MEDICAID, SELFPAY ==
--- NOTE | 2025-10-18 10:45 | DI.RAD_ITS ---
Exam(s) XR KNEE LT 3V AP,LAT,CAM EXAM: XR KNEE LT 3V AP,LAT,CAM CLINICAL HISTORY: LEFT KNEE PAIN. TECHNIQUE: 2D digital imaging was performed. Three views. COMPARISON: CR,XR XR KNEE LT 4V AP,LAT,CAM,PAT from 11/25/2022 FINDINGS: BONES: No acute fracture is present. No bony destructive lesion is seen. JOINTS: There is severe narrowing of the medial femoral tibial joint space and prominent periarticular spurring. There is also prominent spurring at the patellofemoral joint. Spine is noted at the tibial spines as well as femoral intercondylar notch in the lateral femoral condyle lateral tibial plateau. No joint effusion is seen. SOFT TISSUE: Normal. IMPRESSION: Advanced degenerative changes at the medial femoral tibial joint and patellofemoral joint. DATA REPOSITORY: RADIATION DOSE DELIVERED:
--- NOTE | 2025-10-18 10:56 | DI.RAD_ITS ---
Exam(s) XR HIP PELVIS ADULT BL EXAM: XR HIP PELVIS ADULT BL CLINICAL HISTORY: BILAT HIP PAIN. TECHNIQUE: 2D digital imaging was performed. Three views. COMPARISON: CR XR HIP PELVIS ADULT BL from 10/30/[address] CHEST/ABD/PEL W from 11/22/2024 FINDINGS: BONES: No acute fracture is present. No bony destructive lesion is seen. JOINTS: No dislocation present. There is mild narrowing of the right hip joint space. The left hip joint space is maintained. Maintained. There is prominent acetabular spurring and spurring at the margin of the femoral head, greater on the right. Are subchondral cysts in the right femoral head. SI joints and pubic symphysis are unremarkable. SOFT TISSUE: Dasia surgical clips projecting over the midline of the upper sacrum. IMPRESSION: Mild degenerative changes of the left hip. Moderate degenerative changes of the right hip. DATA REPOSITORY: RADIATION DOSE DELIVERED:
== END 2025-10-18 12:06 | disposition home or self-care (01) ==
LOC: DIORS 12:05
PROVIDERS: PCP Legal Medicine; Referring Provider Legal Medicine; Visit Provider Physician Assistant
DX: M17.0 Bilateral primary osteoarthritis of knee (principal); M16.11 Unilateral primary osteoarthritis, right hip; R22.43 Localized swelling, mass and lump, lower limb, bilateral
CPT/HCPCS: 20610; 73521; 73562; 99215; J1010; T1013

== ENCOUNTER 2025-11-25 15:23 | Outpatient (REF) | payer MEDICARE, MEDICAID, SELFPAY | END 2025-11-25 15:24 | disposition home or self-care (01) | LOC: LBN 15:23 | PROVIDERS: PCP Legal Medicine; Visit Provider Nurse Practitioner Gerontology | DX: Z51.81 Encounter for therapeutic drug level monitoring (principal) | CPT/HCPCS: 80175; 80164 ==